=== PATIENT | female | born 1935 | race Caucasian/White ===

== ENCOUNTER → 2019-12-06 09:36 | Outpatient (CLI) | payer MEDICARE, SELFPAY ==
--- NOTE | 2019-12-06 09:40 | RAD_ITS ---
CLINICAL HISTORY: Female, 84 years old. Dysphagia, vomiting PROCEDURE: Air-contrast upper GI study FLUOROSCOPY TIME (if supplied): (1 minute 27 seconds) TECHNIQUE: (All elements of maximal sterile barrier technique followed, including US elements as applicable) Double contrast Findings: Swallowing was initiated normally. No nasopharyngeal reflux or aspiration. No Zenker''s diverticulum noted on the lateral view. There is normal peristaltic activity to the level of the aortic arch. There is significant calcification in the aortic arch which impinges upon the left side of the esophagus. The distal half of the esophagus demonstrates multiple tertiary contractions with both intraesophageal reflux and delayed emptying due to the discoordinated contractions. No evidence of a hiatal hernia, there was GE reflux with increased intrathoracic pressure. Stomach distends normally without evidence of rugal fold enlargement or mucosal ulceration. The duodenal C-loop is not elongated and demonstrates a normal mucosal pattern. A 13 mm barium pill passed through the esophagus into the stomach without difficulty RAD/Upper GI Dual Contrast IMPRESSION: Presbyesophagus with tertiary contractions in the distal half the esophagus. The tertiary contractions are causing intraesophageal reflux. There is also abnormal pooling of contrast in the distal esophagus. The tertiary contractions are not allowing normal emptying of the distal esophagus. However, there is no evidence of a stricture or mass and a 13 mm barium pill passed through the distal esophagus without difficulty. No aspiration or nasopharyngeal reflux Stomach and duodenum appeared unremarkable. Electronically Signed: Krishna Murray MD at 10:40 EDT , Service support ,
== END ==
PROVIDERS: PCP Registered Nurse; Referring Provider Nurse Practitioner Adult Health; Visit Provider Nurse Practitioner Adult Health
DX: R13.10 Dysphagia, unspecified (principal); K21.9 Gastro-esophageal reflux disease without esophagitis
CPT/HCPCS: 74246

== ENCOUNTER → 2020-10-22 20:18 | Outpatient (CLI) | payer MEDICARE, SELFPAY | PROVIDERS: PCP Registered Nurse; Referring Provider Psychiatry & Neurology Sleep Medicine; Visit Provider Psychiatry & Neurology Sleep Medicine | DX: G47.33 Obstructive sleep apnea (adult) (pediatric) (principal) | CPT/HCPCS: 95810 ==

== ENCOUNTER 2020-12-19 17:42 | Inpatient (IN) | payer MEDICARE, SELFPAY ==
[2020-11-26 07:58] VITALS: BMI 22.5
--- NOTE | 2020-12-10 09:32 | EKG12_ITS ---
Test Reason : PRE OP Blood Pressure : / mmHG Vent. Rate : 061 BPM Atrial Rate : 061 BPM P-R Int : 170 ms QRS Dur : 074 ms QT Int : 406 ms P-R-T Axes : 066 -08 081 degrees QTc Int : 408 ms Normal sinus rhythm Septal infarct , age undetermined Abnormal ECG Confirmed by SHARON JARA, WENDI ([id number]), social media editor LEN BLUM ([id number]) on 12/11/2020 8:40:28 AM Referred By: Barak Jean-Baptiste Confirmed By:WENDI HERRERA MD
[2020-12-10 10:17] LABS: Absolute Lymphocyte Count 1.43 X10^3/uL (0.83-4.51); Absolute Neutrophil Count 2.8 X10^3/uL (2.0-7.7); Basophil# 0.05 X10^3/uL; Eosinophil# 0.12 X10^3/uL; Eosinophils% 2.4 % (0-5); Hematocrit 37.3 % (37-47); Hemoglobin 12.1 g/dL (12.0-15.0); Lymphocyte # 1.43 X10^3/ul (0.83-4.51); Lymphocyte % 29.2 % (19-41); Mean Corp Hgb Conc 32.4 g/dL (32-36); Mean Corpuscular Hgb 28.3 pg (27.0-32.0); Mean Corpuscular Volume 87.1 fL (81-99); Mean Platelet Vol. 9.6 fl (6.2-12.0); Monocyte# 0.49 X10^3/uL; NRBC Flagged by Analyzer 0 % (0-5); Neutrophil # 2.79 X10^3/uL (2.7-7.7); Platelet Count 255 K/mm3 (150-450); RBC Distribution Width CV 13.2 % (11.6-14.6); RBC Distribution Width SD 41.6 fl (35.1-43.9); Red Blood Count 4.28 M/mm3 (4.2-5.4); White Blood Count 4.9 K/mm3 (4.4-11.0)
[2020-12-10 11:20] LABS: Anion Gap 9 (5-15); BUN 24 mg/dL (7-18); Calcium,Total 8.8 mg/dL (8.5-10.1); Chloride 102 mmol/L (98-107); Creatinine, Serum 1.09 mg/dL (0.55-1.02); EST Glomerular Filtration Rate 51 mL/min (>60); Est Glom Filt Rate - Afr Amer 61 mL/min (>60); Glucose 86 mg/dL (74-106); Potassium 4.1 mmol/L (3.5-5.1); Sodium Level 139 mmol/L (136-145)
[2020-12-10 11:32] LABS: Magnesium 2.1 mg/dL (1.6-2.6)
[2020-12-10 12:09] LABS: HIV - WCH Non-Reactive (Nonreactive)
[2020-12-11 05:07] LABS: HEPATITIS B SURFACE AG Negative (Negative); Hepatitis A AB, Total Negative (Negative); Hepatitis A IgM Antibody Negative (Negative); Hepatitis B Core AB IgM Negative (Negative); Hepatitis B Core Ab Total Negative (Negative); Hepatitis C Ab <0.1 s/co ratio (0.0-0.9)
[2020-12-12 14:35] VITALS: BMI 22.5
[2020-12-12 15:50] LABS: Hep B Surface Antibodies Non Reactive (.)
[2020-12-19] VITALS (17 sets, daily range): BP systolic 112–198; BP diastolic 41–87; PULSE 57–71; RESP 14–16; TEMP 35.7–36.6; O2SAT 91–100; BMI 25.4; BMI 25.2
[2020-12-19] MEDS: Acetaminophen 500 MG Tablet 1000 MG PO ×2 (06:21→21:34)
[2020-12-19] MEDS: Lactated Ringers 1,000 ML 100 ML IV ×5 (06:40→23:21)
[2020-12-19 07:05] LABS: Bedside Glucose 167 mg/dL (70-110)
[2020-12-19] MEDS: Cefazolin 2 GM in 0.9% Normal Saline 100 ML IV (07:50)
--- NOTE | 2020-12-19 08:29 | RAD_ITS ---
STUDY: X-RAY - LUMBAR SPINE REASON FOR EXAM: Female, 85 years old. LUMBAR DECOMPRESSION L2-3,L4-5 TECHNIQUE: 1 view(s) of the lumbar spine were obtained. COMPARISON: None FINDINGS: Single lateral intraoperative image was submitted. The localization instrument is seen along the posterior aspect of the L4-L5 disc space level. RAD/Spine 1 View Any Level IMPRESSION: The localization instrument is seen along the posterior aspect of the L4-L5 disc space level. Electronically Signed: Gwyn Arboleda MD at 10:29 EDT , Service support ,
[2020-12-19] MEDS: THROMBIN (RECOMBINANT) 20,000 UNIT VIAL 20000 UNIT TOPICAL (09:25)
--- NOTE | 2020-12-19 11:35 | HP.PCM_ITS ---
History and Physical Date of Admission: 12/19/20 12/12/20 14:35 BMI 22.5 Intake Visit Reasons: lumbar spine Is patient in pain?: Yes Pain scale (1-10): 6 Allergies gabapentin Allergy (Verified 12/05/20 13:57) Rash irbesartan Allergy (Verified 12/05/20 13:57) Other lisinopril Allergy (Verified 12/05/20 13:57) Other nifedipine [From Procardia] Allergy (Verified 12/05/20 13:57) Other pravastatin Allergy (Verified 12/05/20 13:57) Other tizanidine [Tizanidine] Allergy (Verified 12/05/20 13:57) Other levofloxacin Adverse Reaction (Verified 12/05/20 13:57) Pain in joints ON LICENSE OF [facility] Medical History (Updated 12/05/20 @ 14:16 by Drea Lowe) Ambulates with cane Anxiety Anxiety and depression Arthritis Back pain Cancer Cardiology follow-up encounter Chronic cough CKD (chronic kidney disease) CPAP (continuous positive airway pressure) dependence Depression Former smoker Gastric reflux History of edema History of epidural anesthesia History of fracture of left ankle History of irregular heartbeat History of pain when walking History of stress test (~2019) Hx of carpal tunnel syndrome Hx of heart valve insufficiency Hx of melanoma of skin Hx of rheumatic fever Hx of skin malignancy Hx: recurrent pneumonia Hypertension Injury of back Leg cramps Low iron Lung nodule Normal echocardiogram (~2019) Rheumatoid arthritis Shortness of breath on exertion Sleep apnea Thyroid disease Wears dentures Wears glasses Wears hearing aid Surgical History (Updated 12/05/20 @ 14:16 by Drea Lowe) History of adenoidectomy History of cardiac catheterization (~2019) History of carpal tunnel release History of toe surgery Hx of hand surgery Hx of tonsillectomy Hx of tubal ligation Social History Smoking Status: Former smoker HPI lumbar spine Details: Parts of this documentation were recorded by a scribe, this documentation accurately reflects the service provided and the decisions made by me, Dr. Barak Jean-Baptiste, 12/12/20 1014. NAHED PINEDA is a 85 year old F here today for her pre-op appointment prior to Lumbar Decompression L2-3 ,L4-5. DOS: 12/720. Nahed is here for her preop visit in the company of her son and her daughter. We discussed the surgery at length that would be done what to expect postop when it she could go home etc. We also spoke of possible risks and complications associated with the surgery including the possibility of , paralysis infection meningitis failed to relieve the symptoms blood clot in the legs blood clot in the lungs myocardial infarction stroke among others. I answered all her questions and those of her children. I went over her MRI scan again. We will decompress her at L4-5 and at L2-3 with possible discectomy at 2 3 and if so it might be a bilateral lateral discectomy. I will see him which decompression I get without violating the disc. I will see her again at surgery next Thursday. Coding Level of Care Code Off vis,est,level 2 Diagnoses Spinal stenosis of lumbar region at multiple levels M48.061 Time Spent (min) 25 Assessment and Plan Assessment and Plan (1) Spinal stenosis of lumbar region at multiple levels:
--- NOTE | 2020-12-19 11:47 | OP.PCM_ITS ---
Report of Operation Date of Procedure: 12/19/20 Description of Surgical Findings:: Preoperative diagnosis: Spinal stenosis L4-5 and L2-3 Postoperative diagnoses: The same Procedure: #1 complete decompression L4-5 #2 complete decompression L2-3 Surgeon: Dr. Jean-Baptiste speech and language assistant: Gadiel GLASGOW Anesthesia: General endotracheal anesthesia administered by [facility] Estimated blood loss: Less than 50 cc Drains: Medium Hemovac Complications: None Procedure: Patient was taken to the OR she was placed under general endotracheal anesthesia. A Richard catheter was then inserted and neuro monitoring placed all their leads on the patient. The patient was then placed in the prone position on the Cal frame. After appropriate positioning with care to protect her bony prominences her breasts her facial features her brachial plexus her ulnar nerves of both elbows the back was then prepped and draped standard fashion. We then made a longitudinal incision centered over L4 5 subcutaneous tissues were incised length of the skin incision. I then opened the lumbar fascia to the left of the spinous processes using cautery and elevated the paravertebral muscles off the lamina of 4 and the top of the lamina of L5. Intraoperative x- ray was taken with a marker in place they confirm that we were indeed at the right level. I went ahead and extended my incision over the spinous process of 3 than the spinous process of 2. I then elevated the rest of the paravertebral muscles off the lamina of 3 and the lamina of 2. We then opened the opposite side opening the lumbar fascia to the right of the spinous processes and elevated the paravertebral muscles off the top of the lamina 5 and the lamina for the lamina of 3 and the lamina of 2. Thorough irrigation was carried out every 10 or 15 minutes. The super slide retractor was then put in place. This gave us good access. Double-action rongeurs were then used to remove the spinous process first of L4. I then elevated the ligamentum flavum off the underside of the lamina of L4 on both sides and performed a beginning of the laminectomy with 45 degree Kerrison rongeurs once this was done I then split the ligamentum flavum in the middle and began the removal of the ligamentum flavum to the other side with a 45 degree Kerrison rongeurs this was done on both the left and the right side. At that I was able to complete the right side from the left side of the patient and the remaining left-sided decompression had to wait until I was on the other side of the table. In the meantime I removed the spinous process of L2 with double-action rongeurs again I removed Nita ligamentum flavum off the underside of the lamina of L to and performed a laminectomy with 45 degree Kerrison rongeurs the ligamentum flavum again was removed in retrograde fashion with a 45 degree Kerrison rongeurs completely decompressing the right side from the left side of the patient. My light and cooling vest were then moved to the opposite side of the patient and I finished the decompression on the left side at 4 5 and 2 3 from the right side. This completely decompressed the spinal stenosis on this patient. Thorough irrigation was carried out again 1 last time amnionic membranes were then placed over both laminectomy sites and Gelfoam was placed over the top of those a medium Hemovac drain was inserted and closure was begun. Closed the lumbar fascia using [id number] suture with #1 Vicryl for closure of subcutaneous tissues in interrupted fashion with 0 Vicryl and 2-0 Vicryl in interrupted fashion and the skin was approximated using skin clips. Sterile dressings were then applied. The patient was then recovered in the OR then moved to her hospital bed and taken to recovery in satisfactory condition. This is the end of operative summary on Nahed Kim. This is Dr. Jean-Baptiste dictating.
[2020-12-19] MEDS: traMADol 50 MG Tablet PO (17:53)
--- NOTE | 2020-12-19 18:10 | NURSING ---
cefazolin scheduled @ 1741 is not on unit for pt administration
[2020-12-19] MEDS: oxyCODONE 5 MG Tablet PO (18:37)
[2020-12-19] MEDS: Cefazolin 1 GM/50 ML BAG IV (18:46)
--- NOTE | 2020-12-19 18:49 | PCM.PN.HOSP ---
Documented by User: Jerilyn Gómze, SUPERVISOR DATA PROCESSING-C 12/19/20 18:59 Subjective Subjective Patient is an 85-year-old female who presented for lumbar decompression of L2-L3 and L4-L5 with Dr. Jean-Baptiste. Patient is currently lying in bed complaining of 6 out of 10 pain for which she just received oxycodone. Patient states she has no other complaints at this time. At the request of Dr. Jean-Baptiste we are seeing patient for medical management of chronic diseases included hypothyroid, hypertension and depression. Objective Data Objective Data Vital Signs: Vital Signs Temp Pulse Resp BP Pulse Ox 97.9 F 71 16 124/50 H 95 12/19/20 17:50 12/19/20 17:50 12/19/20 17:50 12/19/20 17:50 12/19/20 17:50 Oxygen Flow Rate (L/min) 2 Oxygen Delivery Method Room Air Weight: 148 lb 2.41 oz Body Mass Index (BMI) 25.2 Intake & Output: Intake and Output for Last 24 Hours 12/17/20 12/18/20 12/19/20 23:59 23:59 23:59 Intake Total 2464 / 2464 Output Total 875 / 875 Balance 1589 / 1589 Lab / Micro Data Result Diagrams: 12/10/20 09:49 12/10/20 09:49 Labs: Laboratory Results - last 24 hr 12/19/20 06:01 POC Glucose 167 H Micro: Microbiology 12/10/20 09:49 Swab (Method) Nasal Screen MRSA/MSSA - Final Radiography Diagnostic Testing: Radiology Impression Spine X-Ray 12/19/20 08:29 IMPRESSION: The localization instrument is seen along the posterior aspect of the L4-L5 disc space level. Electronically Signed: Gwyn Arboleda MD at 10:29 EDT , Service support , Physical Exam Const alert, oriented x3 and no apparent distress General Appearance: cooperative HEENT normocephalic and head/scalp atraumatic Neck full ROM, supple and no JVD General: trachea midline Chest inspection of chest normal Resp normal respiratory effort, normal air movement and clear to auscultation bilaterally Cardio regular rate, regular rhythm, S1 normal heart sound, S2 normal heart sound and peripheral pulses 2+ throughout GI normal to inspection, nondistended, normoactive bowel sounds, soft to palpation and non-tender Extremity normal to inspection, full ROM and normal capillary refill Skin no rashes or lesions noted, no wounds and skin turgor normal Neuro oriented x3, moves all extremities, no focal motor deficits, no sensory deficits noted and gait normal Psych mental status grossly normal, thought process normal, cooperative, affect normal and speech normal Assessment & Plan Assessment/Plan (1) Spinal stenosis of lumbar region at multiple levels: PLAN: 1. Lumbar decompression of L2-3 and L4-L5 -Surgery completed 12/19/2020 -Pain management as ordered by Dr. Jean-Baptiste 2. Hypertension -Vital signs per protocol, trend BP -Continue losartan 50 mg p.o. daily 3. Hypothyroidism -Continue levothyroxine 50 mcg p.o. daily 4. Anxiety and depression -Continue duloxetine 30 mg daily DVT prophylaxis-SCDs This patient was seen by Jerilyn Gómez NP-Wilder under the supervision of Dr. Cox. Documented by User: Dr. Tiago Cox DO 12/20/20 07:05 Subjective Subjective Patient seen and examined on December 19, 2020 Objective Data Lab / Micro Data Attestation: I reviewed the patient's lab results. Result Diagrams: 12/10/20 09:49 12/10/20 09:49 Physical Exam Const alert and no apparent distress HEENT normocephalic Head and Scalp: normal to inspection and atraumatic Eyes PERRL Cardio regular rate, regular rhythm, S1 normal heart sound and S2 normal heart sound GI normal to inspection, nondistended, normoactive bowel sounds, soft to palpation, non-tender and non-distended Extremity normal to inspection and no pedal edema Assessment & Plan Assessment/Plan (1) Spinal stenosis of lumbar region at multiple levels: PLAN: Patient seen and examined independently. Data reviewed. I agree with the above note by the nurse practitioner. 1. Status post lumbar decompression L2-3 and L4-5. Management per spine surgery 2. Hypertension Stable Continue losartan 3. Hypothyroidism Stable Continue levothyroxine Thank you the consult the hospitalist group will follow along during this patient's hospitalization. Charges/Coding Visit Charges Inpatient E&M: 16516 Subs Hosp L2 (Billing for December 19, 2020)
[2020-12-19] MEDS: Famotidine 20 MG Tablet PO (20:33)
[2020-12-19] MEDS: Senna/Docusate Sodium 1 Tablet 2 TABLET PO (21:34)
[2020-12-19] MEDS: Losartan Potassium 50 MG Tablet PO (21:34)
[2020-12-20] VITALS (8 sets, daily range): BP systolic 132–147; BP diastolic 46–77; PULSE 67–79; RESP 16–18; TEMP 36.5–37.2; O2SAT 96–100
[2020-12-20] MEDS: traMADol 50 MG Tablet PO (00:42)
[2020-12-20] MEDS: Cefazolin 1 GM/50 ML BAG IV (03:10)
[2020-12-20] MEDS: 0.9% Saline Lock 10 ML Syringe IV (04:52)
[2020-12-20] MEDS: Acetaminophen 500 MG Tablet 1000 MG PO ×3 (05:01→21:03)
[2020-12-20] MEDS: Levothyroxine 50 MCG Tablet PO (05:01)
--- NOTE | 2020-12-20 05:35 | NURSING ---
Pt assisted to sitting at edge of bed at this time with BIOMEDICAL ANALYTICAL SCIENTIST Julia. Pt tolerated well, although painful. Pt medicated for 6/10 pain to back after assisted to lying position in bed.
[2020-12-20] MEDS: oxyCODONE 5 MG Tablet PO (05:41)
[2020-12-20] MEDS: Vitamin B Comp W-C Capsule 1 CAP PO (07:30)
[2020-12-20] MEDS: Senna/Docusate Sodium 1 Tablet 2 TABLET PO ×2 (07:30→21:05)
[2020-12-20] MEDS: Famotidine 20 MG Tablet PO ×2 (07:30→21:03)
[2020-12-20] MEDS: Cholecalciferol (VIT D3) 25 MCG TABLET (1,000 UNITS) 50 MCG PO (07:30)
[2020-12-20] MEDS: DULoxetine Hcl 30 MG Capsule PO (07:36)
--- NOTE | 2020-12-20 10:54 | NURSING ---
Blood glucose is 88. pt reports feeling very weak, Armand Sorto RN did an NIH.
[2020-12-20 11:00] LABS: Bedside Glucose 88 mg/dL (70-110)
--- NOTE | 2020-12-20 12:00 | CASEMGMT ---
SUKI MONK Assessment: Face to Face with pt for initial transition planning/care coordination assessment. SUKI MONK introduced self and role at [facility], pt voices understanding and consents to assessment. Pt is A/O x4 and answers all questions appropriately at this time. Pt states she is a little slow as she just had medication. Pt son at bedside. Care providers, pharmacy, and demographics verified/updated. Admitting Dx: Lumbar decompression L2-3, L3-4 PCP:Sandy Giraldo [employer] at [facility] Specialists: Estiven, spine surgeon; Paulette, cardio; Brandon, back specialist; Dev, pain mgmt Preferred Pharmacy: [facility] Insurance: [employer] [facility] Prescription Benefit: yes LW/HPOA: Pt has LW/DPOA on file at [facility]. Her DPOA is her dtr Steffany Ace as her has passed. LNOK: Steffany Ace, dtr; Jessee Kim, son Living Arrangements: Pt lives alone in a single story house with 2 steps to enter without rail. Pt states she is I in ADL's and denies concerns at home. Transportation: Pt reports she can drive herself or her family can transport her. She denies issues with transportation. DME/HHC/SNF: Pt has a cane, rollator and a FWW. Pt denies any history of HHC or SNF stays. Pt states no concerns with going home at time of dc. She states she doesn't feel ready today though. Pt son states he hopes she can return home. Pt states no further concerns/needs. CM to follow. Advised pt to ask CM if any further question/concerns/needs arise, voices understanding. Pt Goal: Home Plan: Home
--- NOTE | 2020-12-20 13:28 | PN.HOSP_ITS ---
Subjective Subjective [place] like a rag doll after taking oxycode and cymbalta today. Has been taper off cymbalta prior to admission. [place] fine beforehand. Objective Data Objective Data Vital Signs: Vital Signs Temp Pulse Resp BP Pulse Ox 37.2 C 75 16 147/64 H 99 12/20/20 12:39 12/20/20 12:39 12/20/20 12:39 12/20/20 12:39 12/20/20 12:39 Oxygen Flow Rate (L/min) 2 Oxygen Delivery Method Room Air Weight: 67.2 kg Body Mass Index (BMI) 25.2 Intake & Output: Intake and Output for Last 24 Hours 12/18/20 12/19/20 12/20/20 23:59 23:59 23:59 Intake Total 3637.34 / 3987.34 1726.67 / 1726.67 Output Total 875 / 1295 2170 / 2170 Balance 2762.34 / 2692.34 -443.33 / -443.33 Lab / Micro Data Result Diagrams: 12/10/20 09:49 12/10/20 09:49 Labs: Laboratory Results - last 24 hr 12/20/20 10:54 POC Glucose 88 Micro: Microbiology 12/10/20 09:49 Swab (Method) Nasal Screen MRSA/MSSA - Final Physical Exam Const alert Neck no lymphadenopathy Resp normal respiratory effort, no retractions, no use of accessory muscles and clear to auscultation bilaterally Cardio regular rate, regular rhythm, S1 normal heart sound and S2 normal heart sound GI normal to inspection, nondistended, normoactive bowel sounds, soft to palpation, non-tender and non-distended Extremity normal to inspection Assessment & Plan Assessment/Plan (1) Spinal stenosis of lumbar region at multiple levels: PLAN: 1. General malaise I feel that this was likely from taking the oxycodone this AM. Opiate naive. Advised to use narcotic sparinlgy I don't expect any infectious etiology, but she will be monitor here. If any issues arise, then can reassess. 2. Spinal stensos s/p decompression mgmt per Spine DW patient's son at bedside Charges/Coding Visit Charges Inpatient E&M: 04034 Subs Hosp L2
--- NOTE | 2020-12-20 14:26 | PCM.PN.ORT ---
Objective Data Objective Data Vital Signs: Vital Signs Temp Pulse Resp BP Pulse Ox 98.9 F 75 16 147/64 H 99 12/20/20 12:39 12/20/20 12:39 12/20/20 12:39 12/20/20 12:39 12/20/20 12:39 Oxygen Flow Rate (L/min) 2 Oxygen Delivery Method Room Air Weight: 148 lb 2.41 oz Body Mass Index (BMI) 25.2 Intake & Output: Intake and Output for Last 24 Hours 12/18/20 12/19/20 12/20/20 23:59 23:59 23:59 Intake Total 3637.34 / 3987.34 1726.67 / 1726.67 Output Total 875 / 1295 2170 / 2170 Balance 2762.34 / 2692.34 -443.33 / -443.33 Lab / Micro Data Result Diagrams: 12/10/20 09:49 12/10/20 09:49 Labs: Laboratory Results - last 24 hr 12/20/20 10:54 POC Glucose 88 Micro: Microbiology 12/10/20 09:49 Swab (Method) Nasal Screen MRSA/MSSA - Final Procedure Criteria Elective Risks - COVID COVID Risk Discussion: Postop day #1. She did get up and walk into the [place] today with help. Patient is only complaining of low back pain. Her leg pain is completely gone. At this time she is alert and well oriented. Her dressing is dry. He had 60 cc out in the last 8 or 9 hours so working to keep the drain in 1 more day. Neurocirculation is totally intact in both lower extremities. Progress is satisfactory. Anticipate at least until tomorrow and may be the next day before she can go home. She will have help at home with her family.
--- NOTE | 2020-12-20 15:03 | CHAPLAIN ---
Type of Pastoral Visit _x__ Initial Visit ___ Follow-up Visit ___ On-call Visit ___ General Patient Visit ___ Spiritual Assessment ___ Family Conference ___ Bereavement ___ Rapid Response ___ Code Blue ___ Other (describe below) Pastoral Care Referral From _x__ Patient ___ Family ___ Nurse ___ Physician ___ User Experience Manager ___ Online Facilitator ___ Other (describe below) Sacrament/Intervention _x__ Active listening ___ Anointing ___ Taoism ___ Bereavement ___ Communion ___ Soledad exploration ___ ___ Life review _x__ Prayer ___ Reconciliation ___ Sacrament of Sick _x__ Supportive presence ___ Wedding ___ Other (describe below) Pastoral Comments
--- NOTE | 2020-12-20 15:29 | CASEMGMT ---
Social Work Note Per coal weigher questions pt has completed HCPOA and LW and provided documents to [facility]. SW reviewed chart. Both HCPOA and LW are on file at [facility]. HCPOA states pt's is POA but pt's has since passed. Pt's daughter Elizabeth Kim is listed as first alternative agent. HCPOA and LW placed on pt's chart. Barbara Diehl WAD PRINTING MACHINE OPERATOR, FURNITURE INSTALLER
--- NOTE | 2020-12-20 17:07 | NURSING ---
pt daughter asked nursing to walk pt, told pt daughter that as soon as nursing has time, we will be into help her. pt daughter went back to room and proceeded to ambulate pt in halls without staff helping. staff told pt and daughter that she is not to walk with out staff helping her, she is unsteady on feet, and has many tubes that could be a fall hazard. also told her that her surgery could be damaged if she was to fall. pt stated she knew it was wrong but she did not want to wait for help. bed alarm placed on bed.
--- NOTE | 2020-12-20 17:30 | NURSING ---
pt called nursing to room. pt c/o not being able to swallow. pt eating supper and ate chicken breast. pt stated she took too large of bite, and it is stuck in throat. pt and daughter stated this happens all the time at home. pt stated that she has a hiatal hernia and has had it looked at by a dr and there is nothing that can be done with it, that she has to take small bites at home. offered pt something for nausea. pt declined. pt does not appear to be in any distress. pt not coughing. will continue to monitor. told pt that she should order things that she is able to swallow easier.
[2020-12-20] MEDS: Losartan Potassium 50 MG Tablet PO (21:03)
[2020-12-21 02:00] VITALS: BP 131/72; PULSE 79; RESP 16; TEMP 37.2; O2SAT 95
[2020-12-21] MEDS: Acetaminophen 500 MG Tablet 1000 MG PO ×3 (05:47→21:21)
[2020-12-21] MEDS: Levothyroxine 50 MCG Tablet PO (05:47)
[2020-12-21 07:28] VITALS: BP 128/50; PULSE 73; RESP 16; TEMP 36.9; O2SAT 94
[2020-12-21] MEDS: Vitamin B Comp W-C Capsule 1 CAP PO (07:42)
[2020-12-21] MEDS: Famotidine 20 MG Tablet PO ×2 (09:52→21:20)
[2020-12-21] MEDS: Cholecalciferol (VIT D3) 25 MCG TABLET (1,000 UNITS) 50 MCG PO (09:52)
[2020-12-21] MEDS: Senna/Docusate Sodium 1 Tablet 2 TABLET PO ×2 (09:53→21:22)
--- NOTE | 2020-12-21 10:52 | PN.HOSP_ITS ---
Subjective Subjective Feels better overall. Objective Data Objective Data Vital Signs: Vital Signs Temp Pulse Resp BP Pulse Ox 36.9 C 73 16 128/50 H 94 12/21/20 07:28 12/21/20 07:28 12/21/20 07:28 12/21/20 07:28 12/21/20 07:28 Oxygen Flow Rate (L/min) 2 Oxygen Delivery Method Room Air Weight: 67.2 kg Body Mass Index (BMI) 25.2 Intake & Output: Intake and Output for Last 24 Hours 12/19/20 12/20/20 12/21/20 23:59 23:59 23:59 Intake Total 3637.34 / 3987.34 2126.67 / 2126.67 Output Total 875 / 1295 2700 / 3620 1860 / 1860 Balance 2762.34 / 2692.34 -573.33 / -1493.33 -1860 / -1860 Lab / Micro Data Result Diagrams: 12/10/20 09:49 12/10/20 09:49 Labs: Laboratory Results - last 24 hr 12/20/20 10:54 POC Glucose 88 Micro: Microbiology 12/10/20 09:49 Swab (Method) Nasal Screen MRSA/MSSA - Final Physical Exam Const alert HEENT Head and Scalp: normocephalic Resp normal respiratory effort, no retractions, no use of accessory muscles and clear to auscultation bilaterally Cardio regular rate, regular rhythm, S1 normal heart sound and S2 normal heart sound GI normal to inspection, nondistended, normoactive bowel sounds, non-tender and non-distended Assessment & Plan Assessment/Plan (1) Spinal stenosis of lumbar region at multiple levels: PLAN: 1. General malaise Resolved I feel that this was likely from taking the oxycodone this AM. Opiate naive. Advised to use narcotic sparinlgy I don't expect any infectious etiology, but she will be monitor here. If any iss ues arise, then can reassess. 2. Spinal stensos s/p decompression mgmt per Spine Charges/Coding Visit Charges Inpatient E&M: 36861 Subs Hosp L2
--- NOTE | 2020-12-21 13:08 | PCM.PN.ORT ---
Objective Data Objective Data Vital Signs: Vital Signs Temp Pulse Resp BP Pulse Ox 98.4 F 73 16 128/50 H 94 12/21/20 07:28 12/21/20 07:28 12/21/20 07:28 12/21/20 07:28 12/21/20 07:28 Oxygen Flow Rate (L/min) 2 Oxygen Delivery Method Room Air Weight: 148 lb 2.41 oz Body Mass Index (BMI) 25.2 Intake & Output: Intake and Output for Last 24 Hours 12/19/20 12/20/20 12/21/20 23:59 23:59 23:59 Intake Total 3637.34 / 3987.34 2126.67 / 2126.67 Output Total 875 / 1295 2700 / 3620 1860 / 1860 Balance 2762.34 / 2692.34 -573.33 / -1493.33 -1860 / -1860 Lab / Micro Data Result Diagrams: 12/10/20 09:49 12/10/20 09:49 Micro: Microbiology 12/10/20 09:49 Swab (Method) Nasal Screen MRSA/MSSA - Final Procedure Criteria Elective Risks - COVID COVID Risk Discussion: On postop day #2. Patient has no complaints she is doing much better than she was even yesterday. He has actually ambulated more today with her walker and her leg pain is completely gone and she is very pleased about that. I change the dressing today and removed her drain. Had a few cc since 6 this morning. We will keep her 1 more night and hopefully tomorrow morning I will be able to release her for home.
[2020-12-21 13:51] VITALS: O2SAT 98
[2020-12-21 14:01] VITALS: BP 109/53; PULSE 81; RESP 16; TEMP 36.8; O2SAT 98
--- NOTE | 2020-12-21 15:37 | CASEMGMT ---
Addendum entered by Leanna Diaz 12/21/20 16:36: SUKI MONK back into pt room per son request. Reviewed HHC and private duty lists with him and how to get HHC once dc'd from the hospital. Reviewed services each provided. Pt/son denies further questions and was appreciative of the information. Original Note: SUKI MONK in to pt room to provide a list of HHC providers including quality and resource use data and consistent with the patient?s preferred geographic region, medical needs, and insurance network per request of pt son. Pt son is not in room at this time. Also provided pt with list of private duty agencies. Pt states her family will be staying with her for a short time. The information is in case she needs further care once they leave. Pt ready to get up and work with therapy. Pt denies further needs.
[2020-12-21 19:52] VITALS: BP 117/50; PULSE 81; RESP 16; TEMP 37.5; O2SAT 97
[2020-12-21] MEDS: Losartan Potassium 50 MG Tablet PO (21:20)
[2020-12-22 01:57] VITALS: BP 146/67; PULSE 76; RESP 16; TEMP 37.1; O2SAT 94
[2020-12-22] MEDS: Levothyroxine 50 MCG Tablet PO (05:26)
[2020-12-22] MEDS: Acetaminophen 500 MG Tablet 1000 MG PO ×2 (05:26→14:41)
[2020-12-22 07:18] VITALS: O2SAT 94
[2020-12-22] MEDS: Cholecalciferol (VIT D3) 25 MCG TABLET (1,000 UNITS) 50 MCG PO (09:03)
[2020-12-22] MEDS: DULoxetine Hcl 30 MG Capsule PO (09:04)
[2020-12-22] MEDS: Senna/Docusate Sodium 1 Tablet 2 TABLET PO (09:04)
[2020-12-22] MEDS: Famotidine 20 MG Tablet PO (09:05)
[2020-12-22] MEDS: Vitamin B Comp W-C Capsule 1 CAP PO (09:06)
[2020-12-22 09:09] VITALS: BP 117/52; PULSE 79; RESP 16; TEMP 36.7; O2SAT 97
--- NOTE | 2020-12-22 10:13 | PN.HOSP_ITS ---
Subjective Subjective Feeling well. Ready to go home. Objective Data Objective Data Vital Signs: Vital Signs Temp Pulse Resp BP Pulse Ox 36.7 C 79 16 117/52 L 97 12/22/20 09:09 12/22/20 09:09 12/22/20 09:09 12/22/20 09:09 12/22/20 09:09 Oxygen Flow Rate (L/min) 2 Oxygen Delivery Method Room Air Weight: 67.2 kg Body Mass Index (BMI) 25.2 Intake & Output: Intake and Output for Last 24 Hours 12/20/20 12/21/20 12/22/20 23:59 23:59 23:59 Intake Total 2126.67 / 2126.67 Output Total 2700 / 3620 1860 / 1860 Balance -573.33 / -1493.33 -1860 / -1860 Lab / Micro Data Result Diagrams: 12/10/20 09:49 12/10/20 09:49 Micro: Microbiology 12/10/20 09:49 Swab (Method) Nasal Screen MRSA/MSSA - Final Physical Exam Const alert Constitutional Narrative: up in chair eating breakfast. HEENT Head and Scalp: normocephalic Psych affect normal Assessment & Plan Assessment/Plan (1) Spinal stenosis of lumbar region at multiple levels: PLAN: 1. General malaise Resolved I feel that this was likely from taking the oxycodone this AM. Opiate naive. Advised to use narcotic sparinlgy I don't expect any infectious etiology, but she will be monitor here. If any i ssues arise, then can reassess. 2. Spinal stensosis s/p decompression mgmt per Spine Medically stable for discharge. Charges/Coding Visit Charges Inpatient E&M: 56289 Subs Hosp L1
--- NOTE | 2020-12-22 12:57 | VDLE_ITS ---
Reason For Study: Pain RIGHT LEFT GSV is normal. GSV is normal. CFV is compressible, spontaneous, phasic, CFV is compressible, spontaneous, phasic, competent and demonstrates normal competent, and demonstrates normal augmentation. augmentation. FV is compressible, spontaneous, phasic, FV is compressible, spontaneous, phasic, competent and demonstrates normal competent and demonstrates normal augmentation. augmentation. POP V is compressible, spontaneous, phasic, POP V is compressible, spontaneous, phasic, competent and demonstrates normal competent and demonstrates normal augmentation. augmentation. T/P Trunk is compressible. T/P Trunk is compressible. PTV is compressible. PTV is compressible. RT PerV is compressible. LT PerV is compressible. Nonvascularized structure is noted in the rightpopliteal space measuring approximently 1.25 x 3.54 x 3.67cm. Procedure This is a venous duplex using B-mode, color flow and spectral Doppler. Exam performed portable in patient room. A preliminary report was called and/or faxed to [facility]. VL/Venous Duplex US - Thom Extrem Interpretation Summary No evidence for acute deep venous thrombosis bilateral lower extremities with p atent and compressible bilateral great saphenous veins. Nonvascular right popliteal space 1.25 x 3.54 x 3.67 cm. Ordering Physician: Barak Jean-Baptiste Referring Physician: Sandy Giraldo Performed By: Barbara Castillo RVT
--- NOTE | 2020-12-22 13:37 | PCM.DC ---
Discharge Instructions Diet Discharge Diet: No restrictions Activity Discharge Activity: Use Walker May shower in (days): 3 Weight Bearing Status: Full weight bearing Dressing / Incision Call your doctor if your incision/area has: Foul Smelling Discharge Call your doctor if you observe: Fever of 101 or Higher, Shortness of breath, Fainting spells, Chest pain and Uncontrolled pain Remove Dressing in: 3 days Cleanse incision/area with: Soap & Water Follow Up Care Test Results: Test results from this visit will be discussed in further detail at your follow-up appointment, if applicable. Discharge Plan Admission Admit Date/Time: 12/19/20 17:42 Attending Provider: Tiago Cox Primary Care Provider: Sandy Giraldo NP Consulting Providers: Tiago Godinez ; Tiago Cox Discharge Orders/Prescriptions Prescriptions: No Action duloxetine 60 mg capsule,delayed release(DR/EC) 30 mg PO DAILY RF: 0 lansoprazole [Prevacid] 15 MG capsule 15 mg PO BID PRN (Reason: Indigestion) RF: 0 vitamin B complex 1 EACH capsule 1 ea PO DAILY RF: 0 Fish Oil 1 EACH capsule 2 ea PO DAILY RF: 0 cholecalciferol (vitamin D3) [Vitamin D3] 2,000 UNIT tablet 2,000 unit PO DAILY RF: 0 levothyroxine 50 MCG tablet 50 mcg PO DAILY RF: 0 losartan 50 mg Tablet 50 mg PO DAILY RF: 0 Referrals / Follow Up: Sandy Giraldo NP, SCHOOL ADMISSIONS REPRESENTATIVE-C [Primary Care Provider] -
--- NOTE | 2020-12-22 13:41 | PCM.DC.SUM ---
Providers Date of Admission: 12/19/20 Primary Care Physician: This patient was admitted on December 19 and is being discharged on December 22. Admitting diagnosis was spinal stenosis L2-3 and L4-5. Date of admission she underwent surgery for decompression of L2-3 and L4-5. She tolerated the procedure well. At discharge the patient dressing is dry. We change the dressing yesterday the incision was healing well. He has instructions to use her walker at first when she is at home. She is to remove her dressing in 3 days and may shower the day after that. She already has an appointment at my office that is already scheduled. Consultations 12/19/20 17:42 Consult: Hospitalist Routine Consulting Provider: Tiago Cox Reason for Consult: Medical Management EMERGENT Consult: No MD Notified: Yes Date Notified: 12/19/20 Time Notified: 18:38 Method of Notification: via text Method of Consult:: In-Person Reason For Visit: LUMBAR DECOMPRESION L2-3, L3-4 Diagnosis Discharge Diagnosis (1) Spinal stenosis of lumbar region at multiple levels: Status: Acute Code(s): M48.061 - Spinal stenosis, lumbar region without neurogenic claudication Medications at Discharge Home Medications Fish Oil 2 ea PO DAILY 12/09/13 cholecalciferol (vitamin D3) [Vitamin D3] 2,000 unit PO DAILY 12/09/13 lansoprazole [Prevacid] 15 mg PO BID PRN 12/09/13 vitamin B complex 1 ea PO DAILY 12/09/13 levothyroxine 50 mcg PO DAILY 02/24/17 duloxetine 60 mg capsule,delayed release 30 mg PO DAILY cap 11/19/20 losartan 50 mg PO DAILY 12/05/20 Weight / BMI Weight Weight: 148 lb 2.41 oz Body Mass Index (BMI) 25.2 ABG / Lab / Microbiology Data Result Diagrams: 12/10/20 09:49 12/10/20 09:49 Microbiology: Microbiology 12/10/20 09:49 Swab (Method) Nasal Screen MRSA/MSSA - Final D/C Instructions Discharge Diet: No restrictions May shower in (days): 3 Weight Bearing Status: Full weight bearing Call your doctor if your incision/area has: Foul Smelling Discharge Call your doctor if you observe: Fever of 101 or Higher, Shortness of breath, Fainting spells, Chest pain and Uncontrolled pain Cleanse incision/area with: Soap & Water Meaningful Use Info Meaningful Use Diagnoses (Choose all that apply): None applicable Discharge Plan Admission Admit Date/Time: 12/19/20 17:42 Attending Provider: Tiago Cox Primary Care Provider: Sandy Giraldo NP Consulting Providers: Tiago Godinez ; Tiago Cox Discharge Orders/Prescriptions Prescriptions: No Action duloxetine 60 mg capsule,delayed release(DR/EC) 30 mg PO DAILY RF: 0 lansoprazole [Prevacid] 15 MG capsule 15 mg PO BID PRN (Reason: Indigestion) RF: 0 vitamin B complex 1 EACH capsule 1 ea PO DAILY RF: 0 Fish Oil 1 EACH capsule 2 ea PO DAILY RF: 0 cholecalciferol (vitamin D3) [Vitamin D3] 2,000 UNIT tablet 2,000 unit PO DAILY RF: 0 levothyroxine 50 MCG tablet 50 mcg PO DAILY RF: 0 losartan 50 mg Tablet 50 mg PO DAILY RF: 0 Referrals / Follow Up: Sandy Giraldo PROPERTY SPECIALIST, PROPERTY SPECIALIST-C [Primary Care Provider] -
--- NOTE | 2020-12-22 13:57 | DCINST_ITS ---
Discharge Instructions Diet Discharge Diet: No restrictions Activity May shower in (days): 3 Weight Bearing Status: Full weight bearing Dressing / Incision Call your doctor if your incision/area has: Foul Smelling Discharge Call your doctor if you observe: Fever of 101 or Higher, Shortness of breath, Fainting spells, Chest pain and Uncontrolled pain Cleanse incision/area with: Soap & Water Follow Up Care Test Results: Test results from this visit will be discussed in further detail at your follow-up appointment, if applicable. Discharge Plan Admission Admit Date/Time: 12/19/20 17:42 Attending Provider: Tiago Cox Primary Care Provider: Sandy Giraldo NP Consulting Providers: Tiago Godinez ; Tiago Cox Discharge Orders/Prescriptions Prescriptions: No Action duloxetine 60 mg capsule,delayed release(DR/EC) 30 mg PO DAILY RF: 0 lansoprazole [Prevacid] 15 MG capsule 15 mg PO BID PRN (Reason: Indigestion) RF: 0 vitamin B complex 1 EACH capsule 1 ea PO DAILY RF: 0 Fish Oil 1 EACH capsule 2 ea PO DAILY RF: 0 cholecalciferol (vitamin D3) [Vitamin D3] 2,000 UNIT tablet 2,000 unit PO DAILY RF: 0 levothyroxine 50 MCG tablet 50 mcg PO DAILY RF: 0 losartan 50 mg Tablet 50 mg PO DAILY RF: 0 Referrals / Follow Up: Sandy Giraldo NP, [employer] P[employer] PLANT ASSEMBLER-C [Primary Care Provider] - Disposition Disposition (needs filled in before D/C Order can be placed): Home, Self Care
[2020-12-22 14:42] VITALS: BP 164/74; PULSE 71; RESP 18; TEMP 36.9; O2SAT 99
== END 2020-12-22 15:02 | disposition home or self-care (01) | DRG 520 ==
LOC: SDC 19:08 → MS3 19:08
PROVIDERS: Anesthesiology; Admitting Provider Orthopaedic Surgery; PCP Registered Nurse; Referring Provider Orthopaedic Surgery
PROC: 01NB0ZZ Release Lumbar Nerve, Open Approach (ICD-10-PCS; CPT 63030; principal; 2020-12-19 07:00)
DX: M48.061 Spinal stenosis, lumbar region without neurogenic claudication (principal); I10 Essential (primary) hypertension; E03.9 Hypothyroidism, unspecified; M06.9 Rheumatoid arthritis, unspecified; G47.30 Sleep apnea, unspecified; F32.9 Major depressive disorder, single episode, unspecified; F41.9 Anxiety disorder, unspecified; Z79.890 Hormone replacement therapy; Z79.899 Other long term (current) drug therapy; Z87.891 Personal history of nicotine dependence; Z85.820 Personal history of malignant melanoma of skin
CPT/HCPCS: 36415; 72020; 80048; 82962; 83735; 84443; 85025; 86703; 86704; 86705; 86706; 86708; 86709; 86803; 87081; 87340; 93005; 93970; 97116; 97162; 97530; 99251; J7120; A4216; G0463; J2405

== ENCOUNTER → 2021-01-02 12:46 | Outpatient (CLI) | payer MEDICARE, SELFPAY ==
[2020-12-26 13:06] VITALS: BMI 25.2
--- NOTE | 2021-01-02 12:48 | VDLE_ITS ---
Reason For Study: PAIN RIGHT GSV is normal. CFV is compressible, spontaneous, phasic, competent and demonstrates normal augmentation. FV is compressible, spontaneous, phasic, competent and demonstrates normal augmentation. POP V is compressible, spontaneous, phasic, competent and demonstrates normal augmentation. T/P Trunk is compressible. PTV is compressible. RT PerV is compressible. Procedure Exam performed in department. A preliminary report was called and/or faxed to BARAK JEAN-BAPTISTE. VL/Venous Duplex US, Unilateral Interpretation Summary There is no evidence of right lower extremity deep vein thrombosis. Right great saphenous vein appears patent and compressible segmentally. 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 Clinical correlation would be appropr iate. Ordering Physician: Barak Jean-Baptiste Referring Physician: SEVERO TAM Performed By: Geeta Lynch, SEBASTIAN, RVT
== END ==
LOC: CVS 12:47
PROVIDERS: PCP Registered Nurse; Referring Provider Orthopaedic Surgery; Visit Provider Orthopaedic Surgery
DX: M79.89 Other specified soft tissue disorders (principal)
CPT/HCPCS: 93971

== ENCOUNTER 2021-01-03 12:08 | Inpatient (IN) | payer MEDICARE, SELFPAY ==
[2020-12-26 13:06] VITALS: BMI 25.2
[2021-01-03 12:08] VITALS: PULSE 72; RESP 16; TEMP 36.2
[2021-01-03 12:09] VITALS: BP 122/81; PULSE 68; RESP 18; TEMP 36.2; O2SAT 96; BMI 26.4
--- NOTE | 2021-01-03 12:16 | MRI_ITS ---
HISTORY: pain, recent surgery 12/19/20, pain radiating down right leg EXAMINATION: MR Spine Lumbar WO/W Contrast TECHNIQUE: Multiplanar and multisequence MR images of the lumbar spine. IV Contrast dosage and agent: 14 cc Dotarem COMPARISON: None FINDINGS: VERTEBRAE: Chronic L1 compression fracture. Anatomic alignment. Surgical changes to the posterior elements at L2-3 and L4-5 with decompressive laminectomies.No expansile or destructive lesion. CORD: Normal visualized portions of the spinal cord and cauda equina, with the tip of the conus medullaris at the L1 level. No intradural or intramedullary soft tissue mass or epidural fluid collection. SOFT TISSUES: Diffuse postoperative enhancement of the soft tissues at the operative sites, L2-3 and L4-5. Fluid signal collection at the operative site posterior to the wide laminectomies measures 2.9 x 1.7 x 1.1 cm with mild peripheral enhancement. L1/L2: No disc bulge, central canal stenosis, or neural foraminal stenosis. L2/L3: Circumferential annular bulge encroaches on the bilateral neural foramina. L3/L4: Circumferential annular bulge produces moderate central and bilateral foraminal stenosis in combination with posterior element hypertrophy. L4/L5: Circumferential annular bulge encroaches on the left neural foramen. L5/S1: No disc bulge, central canal stenosis, or neural foraminal stenosis. MRI/Spine Lumbar W/WO Contrast IMPRESSION: Postoperative changes from decompression laminectomies at L2-3 and L4-5. Fluid collection in the soft tissues posterior to the laminectomies at L4-5, postoperative seroma, possible infected collection. Foraminal stenoses at L2-3, L3-4 and L4-5 as above. at 1502 Reported and signed by: Bereket Macias MD Electronically Signed: Bereket Macias MD at 15:01 EDT Tel , Service support ,
[2021-01-03] MEDS: Morphine 4 MG/ML Syringe IV ×2 (12:40→15:27)
[2021-01-03] MEDS: Ondansetron 4 MG/2 ML Vial IV (12:40)
--- NOTE | 2021-01-03 12:40 | RAD_ITS ---
HISTORY: pain EXAMINATION/TECHNIQUE: XR Femur Min 2 Views: COMPARISON: None FINDINGS: BONES/JOINTS: No acute fracture or dislocation. Degenerative changes at the knee. No sclerotic or destructive changes observed. SOFT TISSUES: No soft tissue swelling or gas. No radiopaque foreign body. RAD/Femur Min 2 Views IMPRESSION: No acute bony abnormality. at 1511 Reported and signed by: Bereket Macias MD Electronically Signed: Bereket Macias MD at 15:10 EDT Tel , Service support ,
--- NOTE | 2021-01-03 12:40 | RAD_ITS ---
HISTORY: pain EXAMINATION/TECHNIQUE: XR Tibia/Fibula 2 Views: COMPARISON: None FINDINGS: BONES/JOINTS: No acute fracture or dislocation. Degenerative changes of the knee. No sclerotic or destructive changes observed. SOFT TISSUES: No soft tissue swelling or gas. No radiopaque foreign body. RAD/Tibia & Fibula 2 Views IMPRESSION: Degenerative changes without acute bony abnormality. at 1513 Reported and signed by: Bereket Macias MD Electronically Signed: Bereket Macias MD at 15:11 EDT Tel , Service support ,
--- NOTE | 2021-01-03 12:40 | RAD_ITS ---
HISTORY: pain EXAMINATION/TECHNIQUE: XR Foot Min 3 Views: COMPARISON: None FINDINGS: BONES/JOINTS: No acute fracture or dislocation. Mild degenerative changes. No sclerotic or destructive changes observed. SOFT TISSUES: No soft tissue swelling or gas. No radiopaque foreign body. RAD/Foot min 3 Views IMPRESSION: Degenerative changes without acute bony abnormality. at 1508 Reported and signed by: Bereket Macias MD Electronically Signed: Bereket Macias MD at 15:06 EDT Tel , Service support ,
[2021-01-03 12:48] LABS: Absolute Lymphocyte Count 1.17 X10^3/uL (0.83-4.51); Absolute Neutrophil Count 7.6 X10^3/uL (2.0-7.7); Basophil# 0.01 X10^3/uL; Basophil% 0.1 % (0-1); Eosinophil# 0.04 X10^3/uL; Eosinophils% 0.4 % (0-5); Hematocrit 36.1 % (37-47); Hemoglobin 11.8 g/dL (12.0-15.0); Lymphocyte # 1.17 X10^3/ul (0.83-4.51); Lymphocyte % 12.3 % (19-41); Mean Corp Hgb Conc 32.7 g/dL (32-36); Mean Corpuscular Hgb 28.2 pg (27.0-32.0); Mean Corpuscular Volume 86.2 fL (81-99); Mean Platelet Vol. 9.4 fl (6.2-12.0); Monocyte# 0.65 X10^3/uL; Monocyte% 6.8 % (0-10); NRBC Flagged by Analyzer 0 % (0-5); Neutrophil # 7.62 X10^3/uL (2.7-7.7); Platelet Count 462 K/mm3 (150-450); RBC Distribution Width CV 13.2 % (11.6-14.6); RBC Distribution Width SD 41.1 fl (35.1-43.9); Red Blood Count 4.19 M/mm3 (4.2-5.4); White Blood Count 9.5 K/mm3 (4.4-11.0)
[2021-01-03 13:03] LABS: AST(SGOT) 16 U/L (15-37); Alanine Aminotransfer ALT/SGPT 30 U/L (13-56); Albumin, Serum 3.7 g/dL (3.2-5.0); Alkaline Phosphatase 73 U/L (45-117); Anion Gap 4 (5-15); BUN 24 mg/dL (7-18); BUN/Creat Ratio 18.2 RATIO (10-20); Calcium,Total 8.9 mg/dL (8.5-10.1); Chloride 104 mmol/L (98-107); Creatinine, Serum 1.32 mg/dL (0.55-1.02); EST Glomerular Filtration Rate 41 mL/min (>60); Est Glom Filt Rate - Afr Amer 49 mL/min (>60); Globulin 3.7 g/dL (2.2-4.2); Glucose 114 mg/dL (74-106); Potassium 4.3 mmol/L (3.5-5.1); Protein, Total 7.4 g/dL (6.4-8.2); Sodium Level 135 mmol/L (136-145)
--- NOTE | 2021-01-03 13:27 | ED.VIS.BACK ---
HPI History of Present Illness Chief Complaint: Back Narrative Narrative: Patient presents with back pain and radiation to the right lower extremity, she had spinal stenosis and she had surgery by Dr. Est[facility] mosqueda over 2 weeks ago, she continues to have this pain. She has no fever or chills, she has no bowel or bladder compromise she has no urinary retention symptoms or suprapubic pain. She has no saddle anesthesia. She has no weakness her sole complaint is pain especially when turning or trying to ambulate. She has taken her oxycodone with only minimal relief of symptoms. She actually was supposed to have an outpatient ultrasound an hour from arrival to the ED but she could not make it on her own so she called EMS. [facility] Medical History Ambulates with cane Anxiety Anxiety and depression Arthritis Back pain Cancer Cardiology follow-up encounter Chronic cough CKD (chronic kidney disease) CPAP (continuous positive airway pressure) dependence Depression Former smoker Gastric reflux History of edema History of epidural anesthesia History of fracture of left ankle History of irregular heartbeat History of pain when walking History of stress test (~2019) Hx of carpal tunnel syndrome Hx of heart valve insufficiency Hx of melanoma of skin Hx of rheumatic fever Hx of skin malignancy Hx: recurrent pneumonia Hypertension Injury of back Leg cramps Low iron Lung nodule Normal echocardiogram (~2019) Rheumatoid arthritis Shortness of breath on exertion Sleep apnea Thyroid disease Wears dentures Wears glasses Wears hearing aid Home Medications Fish Oil 2 ea PO DAILY 12/09/13 [History Last Taken 06/02/16] cholecalciferol (vitamin D3) [Vitamin D3] 2,000 unit PO DAILY 12/09/13 [History Last Taken 06/02/16] lansoprazole [Prevacid] 15 mg PO BID PRN 12/09/13 [History Last Taken 03/02/17 06:10 15 MG] vitamin B complex 1 ea PO DAILY 12/09/13 [History Last Taken 06/02/16] levothyroxine 50 mcg PO DAILY 02/24/17 [History Last Taken 03/02/17 06:10 50 MCG] duloxetine 60 mg capsule,delayed release 30 mg PO DAILY cap 11/19/20 [History Last Taken Unknown] losartan 50 mg PO DAILY 12/05/20 [History Last Taken Unknown] tramadol 50 mg tablet 50 mg PO Q6H PRN 10 Days #40 tab 12/26/20 [Rx Last Taken Unknown] hydrocodone-acetaminophen 5-325mg 5mg-325mg 1 tab PO Q4H PRN 6 Days #40 tab 01/03/21 [Rx Last Taken Unknown] Allergy/AdvReac Type Severity Reaction Status Date / Time gabapentin Allergy Rash Verified 01/03/21 12:20 irbesartan Allergy Other Verified 01/03/21 12:20 lisinopril Allergy Other Verified 01/03/21 12:20 nifedipine [From Procardia] Allergy Other Verified 01/03/21 12:20 pravastatin Allergy Other Verified 01/03/21 12:20 tizanidine [Tizanidine] Allergy Other Verified 01/03/21 12:20 levofloxacin AdvReac Pain in Verified 01/03/21 12:20 joints Surgical History History of adenoidectomy History of cardiac catheterization (~2019) History of carpal tunnel release History of toe surgery Hx of hand surgery Hx of tonsillectomy Hx of tubal ligation Social History Smoking Status: Former smoker ROS ROS ED ROS Narrative Past medical history: Reviewed, including chronic back pain, spinal stenosis, hypothyroidism Medications: Reviewed Social history: Noncontributory Review of systems: All systems negative except as indicated General: No fever Eyes: No visual changes ENT: No upper airway congestion, normal voice Neck: No neck pain Cardiovascular: No chest pain Respiratory: No shortness of breath or cough Gastrointestinal: No abdominal pain, nausea vomiting or diarrhea Genitourinary: No dysuria Musculoskeletal: Back pain with radiation to the right lower extremity as in HPI. Skin: No rash Neurological: No memory loss, confusion or any focal weakness Psych: No recent behavioral changes Hematologic: No easy bleeding or easy bruising EXAM Physical Exam Narrative Exam Narrative: Vitals reviewed General: Patient appears in discomfort HEENT: Moist mucous membranes Neck: Nontender Cardiovascular normal heart rate Respiratory: No respiratory difficulty speaking in full sentences Abdomen: Soft and nontender, there is no suprapubic mass or pain Back: There is some tenderness over the lumbar region, pain is spinal and paraspinal both. Extremities: Moves all extremities without joint pain or signs of trauma Neurological: There is normal plantar flexion and dorsiflexion of both feet and great toes. Patellar and Achilles reflexes are normal. Normal strength and sensation. Positive straight leg test on the right. Skin: No rash Psychiatric: Slightly anxious. Const Vital Signs: 01/03/21 12:08 01/03/21 12:09 Temperature 97.2 F L 97.2 F L Temperature Source Temporal Temporal Pulse Rate 72 68 Respiratory Rate 16 18 Blood Pressure 122/81 H Blood Pressure Mean 94 Pulse Ox 96 Oxygen Delivery Method Room Air Room Air [facility] Lab Data Labs: Laboratory Results - last 24 hr 01/03/21 01/03/21 12:41 12:41 WBC 9.5 RBC 4.19 L Hgb 11.8 L Hct 36.1 L MCV 86.2 MCH 28.2 MCHC 32.7 RDW Std Deviation 41.1 RDW Coeff of Peter 13.2 Plt Count 462 H MPV 9.4 Immature Gran % (Auto) 0.400 Neut % (Auto) 80.0 H Lymph % (Auto) 12.3 L Kinney % (Auto) 6.8 Eos % (Auto) 0.4 Baso % (Auto) 0.1 Absolute Neuts (auto) 7.6 Absolute Lymphs (auto) 1.17 Nucleated RBC % 0 Sodium 135 L Potassium 4.3 Chloride 104 Carbon Dioxide 27.0 Anion Gap 4 L BUN 24 H Creatinine 1.32 H Estim Creat Clear Calc 27.40 Est GFR (MDRD) Af Amer 49 L Est GFR (MDRD) Non-Af 41 L BUN/Creatinine Ratio 18.2 Glucose 114 H Calcium 8.9 Total Bilirubin 0.40 AST 16 ALT 30 Alkaline Phosphatase 73 Total Protein 7.4 Albumin 3.7 Globulin 3.7 Albumin/Globulin Ratio 1.0 Discharge Plan Triage Chief Complaint: Back ED Provider: Kaden Blanchard Dx/Rx/DC Orders Prescriptions: No Action duloxetine 60 mg capsule,delayed release(DR/EC) 30 mg PO DAILY RF: 0 hydrocodone-acetaminophen 5-325 mg tablet 1 tab PO Q4H PRN (Reason: pain) 6 Days Qty: 40 RF: 0 tramadol 50 mg tablet 50 mg PO Q6H PRN (Reason: pain) 10 Days Qty: 40 RF: 0 lansoprazole [Prevacid] 15 MG capsule 15 mg PO BID PRN (Reason: Indigestion) RF: 0 vitamin B complex 1 EACH capsule 1 ea PO DAILY RF: 0 Fish Oil 1 EACH capsule 2 ea PO DAILY RF: 0 cholecalciferol (vitamin D3) [Vitamin D3] 2,000 UNIT tablet 2,000 unit PO DAILY RF: 0 levothyroxine 50 MCG tablet 50 mcg PO DAILY RF: 0 losartan 50 mg Tablet 50 mg PO DAILY RF: 0 Primary Care Provider: Sandy Giraldo NP
--- NOTE | 2021-01-03 15:42 | NURSING ---
312 CARMEN BACK PAIN
[2021-01-03 15:54] VITALS: BP 185/72; PULSE 67; PULSE 71; RESP 18; TEMP 36.2; TEMP 36.3; O2SAT 96; O2SAT 97
[2021-01-03 16:41] VITALS: BMI 26.4
--- NOTE | 2021-01-03 16:57 | PCM.HP.STD ---
HPI - General General Date of Admission: 01/03/21 HPI Narrative DARYA PINEDA, is a 85 F who presented to the emergency department at [facility] on 01/03/2021 with the complaint of intractable low back pain and right leg pain. She had surgery on 12/19/2020 for spinal stenosis at L2-3, L4-L5 that included complete lumbar decompressions at both levels. He was discharged home on 12/22/2020 but developed radicular symptoms that are quite different than her symptoms prior to surgery. She was trialed on steroids and her pain medications were changed but today her pain was so bad that she had to present to the emergency department as family was unable to get her out of bed. Her vital signs are stable. Her CBC is stable other than a mild anemia. Her BMP shows mild hyponatremia at 135 and an elevated BUN and creatinine from baseline indicating mild dehydration. An MRI of her lumbar spine was obtained and showed postoperative changes from her decompression laminectomies at above levels with a fluid collection in the soft tissues posterior to the laminectomies at L4-L5 and a postoperative seroma. It notes that this is a possibly infected collection. She also has foraminal stenosis at L2-L3 L3-L4 and L4-L5. A venous duplex was done on 01/02/2021 and shows no signs of clot. X-rays of the femur foot and right tibia and fibula were performed and were negative for any signs of fracture. She will be admitted to [facility] for pain management. [facility] Medical History Ambulates with cane Anxiety Anxiety and depression Arthritis Back pain Cancer Cardiology follow-up encounter Chronic cough CKD (chronic kidney disease) CPAP (continuous positive airway pressure) dependence Depression Former smoker Gastric reflux History of edema History of epidural anesthesia History of fracture of left ankle History of irregular heartbeat History of pain when walking History of stress test (~2019) Hx of carpal tunnel syndrome Hx of heart valve insufficiency Hx of melanoma of skin Hx of rheumatic fever Hx of skin malignancy Hx: recurrent pneumonia Hypertension Injury of back Leg cramps Low iron Lung nodule Normal echocardiogram (~2019) Rheumatoid arthritis Shortness of breath on exertion Sleep apnea Thyroid disease Wears dentures Wears glasses Wears hearing aid Home Medications Fish Oil 2 ea PO DAILY 12/09/13 [History Last Taken 06/02/16] cholecalciferol (vitamin D3) [Vitamin D3] 2,000 unit PO DAILY 12/09/13 [History Last Taken 01/02/21] lansoprazole [Prevacid] 15 mg PO BID PRN 12/09/13 [History Last Taken 03/02/17 06:10 15 MG] vitamin B complex 1 ea PO DAILY 12/09/13 [History Last Taken 01/02/21] levothyroxine 50 mcg PO DAILY 02/24/17 [History Last Taken 01/03/21] losartan 50 mg PO DAILY 12/05/20 [History Last Taken 01/02/21] tramadol 50 mg tablet 50 mg PO Q6H PRN 10 Days #40 tab 12/26/20 [Rx Last Taken 01/03/21 05:30] acetaminophen [Tylenol Extra Strength] 1,000 mg PO Q8H PRN 01/03/21 [History Last Taken 01/02/21] hydrocodone-acetaminophen 5-325mg 5mg-325mg 1 tab PO Q4H PRN 6 Days #40 tab 01/03/21 [Rx Last Taken 01/03/21 10:45] Allergy/AdvReac Type Severity Reaction Status Date / Time gabapentin Allergy Rash Verified 01/03/21 12:20 irbesartan Allergy Other Verified 01/03/21 12:20 lisinopril Allergy Other Verified 01/03/21 12:20 nifedipine [From Procardia] Allergy Other Verified 01/03/21 12:20 pravastatin Allergy Other Verified 01/03/21 12:20 tizanidine [Tizanidine] Allergy Other Verified 01/03/21 12:20 levofloxacin AdvReac Pain in Verified 01/03/21 12:20 joints Surgical History History of adenoidectomy History of cardiac catheterization (~2019) History of carpal tunnel release History of toe surgery Hx of hand surgery Hx of tonsillectomy Hx of tubal ligation Social History Smoking Status: Former smoker ROS Constitutional Constitutional: Denies anorexia, change in weight, chills, fatigue, fever(s), malaise, night sweats, weakness or other Eyes Eyes: Denies blurry vision, change in eye color, change in vision, discharge from eye(s), double vision, erythema, eye pain, loss of vision or other ENT HEENT: Denies abnormal hearing, dysphagia, ear pain, epistaxis, headache(s), hearing loss, nasal congestion, nasal discharge, post nasal drip, sinus pressure, sore throat or other Cardiovascular Cardiovascular: Denies chest pain, claudication, dyspnea on exertion, edema, lightheadedness, orthopnea, palpitations, paroxysmal nocturnal dyspnea, rapid heart rate, syncope or other Respiratory/Chest Respiratory/Chest: Denies cough, dyspnea, excessive phlegm production, hemoptysis, productive cough, shortness of breath at rest, shortness of breath with exertion, wheezing or other Gastrointestinal Gastrointestinal: Denies abdominal pain, coffee ground emesis, constipation, diarrhea, dyspepsia, hematemesis, hematochezia, loose stools, melena, nausea, vomiting or other Genitourinary Genitourinary: Reports difficulty urinating; Denies burning urination, dysuria, hematuria, nocturia, urinary frequency, urinary hesitancy, urinary incontinence, urinary urgency or other Musculoskeletal Musculoskeletal: Reports back pain and other Details: Right leg pain with movement Neurologic Neurologic: Reports abnormal gait; Denies focal weakness, numbness, paresthesias or tingling Psychiatric Psychiatric: Denies anxiety, depression, homicidal ideation, suicidal ideation or other Endocrine Endocrinology: Denies change in body appearance, cold intolerance, excessive sweating, heat intolerance, polydipsia, polyuria or other Hematologic/Lymphatic Hematologic/Lymphatic: Denies anemia, easy bleeding, easy bruising, lymphadenopathy or other Allergic/Immunologic Allergic/Immunologic: Denies rhinitis, hives, eczemia, asthma or other Vital Signs Vital Signs Vital Signs: 01/03/21 12:08 01/03/21 12:09 01/03/21 15:54 Temperature 97.2 F L 97.2 F L 97.2 F L Temperature Source Temporal Temporal Temporal Pulse Rate 72 68 67 Respiratory Rate 16 18 18 Blood Pressure 122/81 H 185/72 H Blood Pressure Mean 94 109 Pulse Ox 96 96 Oxygen Delivery Method Room Air Room Air Room Air Weight Weight: 69.8 kg Body Mass Index (BMI) 26.4 Physical Exam Const alert and oriented x3 Constitutional Narrative: Elderly white female lying in bed, daughter at bedside, nontoxic-appearing, appears comfortable at rest but severe pain in right leg with trying to move General Appearance: cooperative HEENT normocephalic and head/scalp atraumatic HEENT Narrative: Upper dentures in place, Mallampati 2 Eyes PERRL, EOMs intact bilaterally and conjunctivae normal Neck no lymphadenopathy, supple, no JVD and no carotid bruits Resp normal respiratory effort, no retractions, no use of accessory muscles and clear to auscultation bilaterally Auscultation: Negative for crackles, rales, rhonchi or wheezes Cardio regular rate, regular rhythm, S1 normal heart sound, S2 normal heart sound, no murmurs, no rub, no gallops, no clicks and no JVD GI normal to inspection, nondistended, normoactive bowel sounds, soft to palpation, non-tender and non-distended Extremity normal to inspection and no clubbing, cyanosis or edema Peripheral Pulses: Yes pulses 2+ throughout Skin no rashes or lesions noted, no wounds, skin turgor normal, no jaundice, no petechiae and no mottling Neuro oriented x3, CN's II-XII intact bilaterally, moves all extremities and no focal motor deficits Neuro Narrative: Weakness in right leg but limited to pain strength otherwise is 5 out of 5, reflexes within normal limits bilateral lower extremities, no sensory deficits, straight leg raise is negative Sensorium / Orientation: awake and alert Psych affect normal Mood & Affect: anxious Results Lab / Micro Data Attestation: I reviewed the patient's lab results. Result Diagrams: 01/03/21 12:41 01/03/21 12:41 Labs: Laboratory Results - last 24 hr 01/03/21 12:41: WBC 9.5, RBC 4.19 L, Hgb 11.8 L, Hct 36.1 L, MCV 86.2, MCH 28.2, MCHC 32.7, RDW Std Deviation 41.1, RDW Coeff of Peter 13.2, Plt Count 462 H, MPV 9.4, Immature Gran % (Auto) 0.400, Neut % (Auto) 80.0 H, Lymph % (Auto) 12.3 L, Menard % (Auto) 6.8, Eos % (Auto) 0.4, Baso % (Auto) 0.1, Absolute Neuts (auto) 7.6, Absolute Lymphs (auto) 1.17, Nucleated RBC % 0 01/03/21 12:41: Sodium 135 L, Potassium 4.3, Chloride 104, Carbon Dioxide 27.0, Anion Gap 4 L, BUN 24 H, Creatinine 1.32 H, Estim Creat Clear Calc 27.40, Est GFR (MDRD) Af Amer 49 L, Est GFR (MDRD) Non-Af 41 L, BUN/Creatinine Ratio 18.2, Glucose 114 H, Calcium 8.9, Total Bilirubin 0.40, AST 16, ALT 30, Alkaline Phosphatase 73, Total Protein 7.4, Albumin 3.7, Globulin 3.7, Albumin/Globulin Ratio 1.0 Radiology Impression Lumbar Spine MRI 01/03/21 12:16 IMPRESSION: Postoperative changes from decompression laminectomies at L2-3 and L4-5. Fluid collection in the soft tissues posterior to the laminectomies at L4-5, postoperative seroma, possible infected collection. Foraminal stenoses at L2-3, L3-4 and L4-5 as above. at 1502 Reported and signed by: Bereket Macias MD Electronically Signed: Bereket Macias MD at 15:01 EDT Tel , Service support , Femur X-Ray 01/03/21 12:40 IMPRESSION: No acute bony abnormality. at 1511 Reported and signed by: Bereket Macias MD Electronically Signed: Bereket Macias MD at 15:10 EDT Tel , Service support , Foot X-Ray 01/03/21 12:40 IMPRESSION: Degenerative changes without acute bony abnormality. at 1508 Reported and signed by: Bereket Macias MD Electronically Signed: Bereket Macias MD at 15:06 EDT Tel , Service support , Tibia/Fibula X-Ray 01/03/21 12:40 IMPRESSION: Degenerative changes without acute bony abnormality. at 1513 Reported and signed by: Bereket Macias MD Electronically Signed: Bereket Macias MD at 15:11 EDT Tel , Service support , Assessment & Plan Assessment/Plan (1) Radiculitis with lower extremity symptoms: (2) Seroma after procedure: (3) NIHARIKA (acute kidney injury): (4) Hyponatremia: PLAN: Intractable low back pain status post lumbar spinal decompression at L4-5 and L2-3 -Patient has received outpatient steroids and oral narcotics with no resolve -Unable to take gabapentin/Lyrica secondary to side effects -Continue scheduled Tylenol -MRI shows seroma with possible infection -Check MRSA PCR -Start Vanco and Zosyn for now until this can be clarified further -Scheduled oxycodone every 6 hours with breakthrough morphine 2 mg -Aggressive bowel regimen -PT/OT consultation -Consultation to Dr. Jean-Baptiste Urinary retention -Place Richard Seroma after spinal surgery -Per MRI question infection -Antibiotics as above -MRSA PCR NIHARIKA-mild -Baseline serum creatinine is 0.9-1 -Current serum creatinine is 1.32 -IV fluids at 70 cc/h -Repeat BMP in a.m. Mild hyponatremia -Suspect hypovolemia with NIHARIKA -Repeat BMP in a.m. Hypertension -Continue home medications Hypothyroidism -Continue home levothyroxine GERD -Continue Prevacid DVT prophylaxis -Lovenox CODE STATUS -Full code
[2021-01-03 17:00] VITALS: BP 184/88; PULSE 71; RESP 18; TEMP 36.6; O2SAT 99
[2021-01-03] MEDS: oxyCODONE 5 MG Tablet 10 MG PO (18:05)
[2021-01-03] MEDS: 0.9% Normal Saline 1,000 ML 70 ML IV (18:06)
--- NOTE | 2021-01-03 19:21 | PCM.RX.CS ---
Consult Pharmacy has been consulted to manage selected antiobiotic: Vancomycin Type of Consult: New start Suspected Infection: Other Prior Doses of Antibiotics Received/Current Regimen: Received 1250mg iv x 1 in ER. Labs: Sodium 135 mmol/L (136-145) L 01/03/21 12:41 Potassium 4.3 mmol/L (3.5-5.1) 01/03/21 12:41 Chloride 104 mmol/L (98-107) 01/03/21 12:41 Carbon Dioxide 27.0 mmol/L (21.0-32.0) 01/03/21 12:41 Anion Gap 4 (5-15) L 01/03/21 12:41 BUN 24 mg/dL (7-18) H 01/03/21 12:41 Creatinine 1.32 mg/dL (0.55-1.02) H 01/03/21 12:41 Est GFR (MDRD) Af Amer 49 mL/min (>60) L 01/03/21 12:41 Est GFR (MDRD) Non-Af 41 mL/min (>60) L 01/03/21 12:41 BUN/Creatinine Ratio 18.2 RATIO (10-20) 01/03/21 12:41 Glucose 114 mg/dL (74-106) H 01/03/21 12:41 Weight used for dosin.8 kg Estimated Creatinine Clearance: 27ml/min Goal Trough: 15-20 mcg/mL Pharmacy Plan for Drug Dosing: Will begin 750mg iv q24h per pharmacokinetic protocol. Trough level ordered for ..21 before 3rd total dose. Pharmacy Service will continue to monitor and adjust dosing as required. Follow-Up Labs: Trough Vancomycin - 7.24.21 @1530 before 1600 dose
[2021-01-03] MEDS: Morphine 2 MG/ML Syringe IV (20:32)
[2021-01-03] MEDS: Senna/Docusate Sodium 1 Tablet PO (20:45)
[2021-01-03 20:46] VITALS: BP 184/72; PULSE 72; RESP 18; TEMP 36.7; O2SAT 96
[2021-01-03] MEDS: Labetalol (Prefilled) 20 MG/4 ML IV (21:00)
[2021-01-03 21:03] VITALS: PULSE 67
[2021-01-03 21:19] LABS: Bacteria 0 SEEN /hpf (None Seen); Mucous, Urine 0 SEEN /hpf (<or=2+); Squamous Epithelial Cells - UA 0 SEEN /hpf (5-10)
[2021-01-03 21:25] LABS: Color, Urine Yellow (Yellow); Glucose, Dipstick Normal (Normal); Ketone-Dipstick Negative (Negative); Leukocyte Esterase-Dipstick 500 /ul (Negative); Nitrite-Dipstick Negative (Negative); Occult Blood-Urine 25 /ul (Negative); Protein-Dipstick Negative (Negative); Urine Bilirubin Dipstick Negative (Negative); Urine Clarity Sl. Cloudy (Clear); Urine Urobilinogen Normal (Normal)
[2021-01-03 21:40] LABS: White Blood Cells >100 SEEN /hpf (0-5)
[2021-01-03 21:41] LABS: Red Blood Cells-Urine 0-5 SEEN /hpf (0-5)
[2021-01-03 23:03] LABS: M R Staph aureus DNA By PCR Negative (Negative); Probe Check PASS; Specimen Processing Control PASS
[2021-01-04] VITALS (12 sets, daily range): BP systolic 127–153; BP diastolic 50–69; PULSE 60–68; RESP 16–18; TEMP 36.3–36.9; O2SAT 97–100
[2021-01-04] MEDS: Acetaminophen 500 MG Tablet 1000 MG PO ×3 (00:08→16:55)
[2021-01-04] MEDS: oxyCODONE 5 MG Tablet 10 MG PO ×2 (00:08→10:25)
[2021-01-04] MEDS: Morphine 2 MG/ML Syringe IV (05:19)
[2021-01-04] MEDS: Levothyroxine 50 MCG Tablet PO (05:24)
--- NOTE | 2021-01-04 06:00 | NM_ITS ---
CLINICAL: Female, 85 years old patient with back pain and radicular symptoms down right and left lower extremities. Status Post surgery two weeks ago WHOLE BODY NUCLEAR BONE SCAN TECHNIQUE: Following the IV administration of 25.3 mCi of Tc MDP, whole body bone imaging was performed with a gamma camera following a three hour delay. COMPARISON STUDIES : NM - None. CR - Radiographs of lumbar spine dated 11/19/2020 CT - Not available for review at this time. MR - 01/03/2021 US - Not available for review at this time. FINDINGS: There is subtle focal area of increased radiopharmaceutical uptake at the L3 level which may be secondary to recent surgery. The spine in general has generally normal pharmaceutical uptake. There is mild increased radiopharmaceutical uptake by the shoulders, elbows, wrists, metacarpophalangeal joints, knees and ankles consistent with degenerative arthropathy. Increased radiopharmaceutical uptake by the nasopharynx may be secondary to acute infection or inflammation. Both kidneys appear to have generally normal appearance. The there is radiopharmaceutical visible in the urinary bladder. There is intensely increased radiopharmaceutical uptake by the distal left fibula that suggests possible sequela of fracture. NM/Bone Scan Whole Body IMPRESSION: 1. Subtle increased radiopharmaceutical uptake at L3 may be secondary to recent surgery. 2. Intense focus of increased radiopharmaceutical uptake by the distal left fibula suggests sequela of fracture. Infection is thought less likely. Electronically Signed: Maryjane Lugo MD at 10:48 EDT , Service support ,
[2021-01-04 06:49] LABS: Absolute Lymphocyte Count 1.09 X10^3/uL (0.83-4.51); Absolute Neutrophil Count 9.4 X10^3/uL (2.0-7.7); Basophil# 0.02 X10^3/uL; Basophil% 0.2 % (0-1); Eosinophil# 0.07 X10^3/uL; Eosinophils% 0.6 % (0-5); Hematocrit 34.2 % (37-47); Hemoglobin 11.1 g/dL (12.0-15.0); Lymphocyte # 1.09 X10^3/ul (0.83-4.51); Lymphocyte % 9.6 % (19-41); Mean Corp Hgb Conc 32.5 g/dL (32-36); Mean Corpuscular Volume 86.4 fL (81-99); Mean Platelet Vol. 9.9 fl (6.2-12.0); Monocyte# 0.77 X10^3/uL; Monocyte% 6.8 % (0-10); NRBC Flagged by Analyzer 0 % (0-5); Neutrophil # 9.36 X10^3/uL (2.7-7.7); Neutrophil % 82.4 % (47-70); Platelet Count 426 K/mm3 (150-450); RBC Distribution Width CV 13.4 % (11.6-14.6); Red Blood Count 3.96 M/mm3 (4.2-5.4); White Blood Count 11.4 K/mm3 (4.4-11.0)
[2021-01-04 07:18] LABS: Anion Gap 8 (5-15); BUN 19 mg/dL (7-18); BUN/Creat Ratio 16.4 RATIO (10-20); Calcium,Total 8.4 mg/dL (8.5-10.1); Chloride 103 mmol/L (98-107); Creatinine, Serum 1.16 mg/dL (0.55-1.02); EST Glomerular Filtration Rate 47 mL/min (>60); Est Glom Filt Rate - Afr Amer 57 mL/min (>60); Estimated Creatinine Clearance 31.17 ml/min; Glucose 99 mg/dL (74-106); Magnesium 2.3 mg/dL (1.6-2.6); Potassium 4.5 mmol/L (3.5-5.1); Sodium Level 137 mmol/L (136-145)
--- NOTE | 2021-01-04 08:45 | NURSING ---
Pt to [facility] for testing
[2021-01-04] MEDS: Ondansetron 4 MG/2 ML Vial IV (09:37)
[2021-01-04] MEDS: 0.9% Saline Lock 10 ML Syringe IV (09:37)
[2021-01-04] MEDS: 0.9% Normal Saline 1,000 ML 70 ML IV ×2 (09:37→22:05)
[2021-01-04] MEDS: Losartan Potassium 50 MG Tablet PO (10:25)
[2021-01-04] MEDS: Cholecalciferol (VIT D3) 25 MCG TABLET (1,000 UNITS) 50 MCG PO (10:25)
[2021-01-04] MEDS: Vitamin B Comp W-C Capsule 1 CAP PO (10:25)
--- NOTE | 2021-01-04 11:35 | CASEMGMT ---
Addendum entered by Leanna Diaz 01/04/21 14:28: SUKI MONK back into pt room. Dtr and pt state she would like s/t rehab at this time. Notified Ricardo ENGLISH. Pt screened for palliative care d/t readmission, pt met criteria. No order received at this time. Original Note: RN CM Readmission Note Previous Admission: 12/19/20-12/22/20 Diagnosis: lumbar decompression L2-3, L3-4 DC Disposition: Home with family support and private duty list given Current Admission Presentation: intractable back pain Pt presented to ER from home with intractable back pain. SUKI MONK in to pt room, pt states she did follow up with post hospitalization and she had been seen in the office most days since home. She states she had a pain injection by on Thursday. She reports she was supposed to have a MRI but she was unable to make it to the appt so squad was called and pt transported to ER. Pt dtr in room. States family had been staying with patient but she became worse. Pt was trialed on steroids and po pain meds as well. MRI showed postop seroma. Pt would like to return home if able, but realizes she may need s/t therapy. Currently has not seen pt yet this hospitalization. DC PLAN: Home vs s/t therapy at [facility].
--- NOTE | 2021-01-04 11:36 | CHAPLAIN ---
Type of Pastoral Visit _x__ Initial Visit ___ Follow-up Visit ___ On-call Visit ___ General Patient Visit ___ Spiritual Assessment ___ Family Conference ___ Bereavement ___ Rapid Response ___ Code Blue ___ Other (describe below) Pastoral Care Referral From _x__ Patient _x__ Family ___ Nurse ___ Physician ___ Brancher ___ Physical Chemistry Professor ___ Other (describe below) Sacrament/Intervention _x__ Active listening ___ Anointing ___ Bahai ___ Bereavement ___ Communion ___ Soledad exploration ___ ___ Life review _x__ Prayer ___ Reconciliation ___ Sacrament of Sick _x__ Supportive presence ___ Wedding ___ Other (describe below) Pastoral Comments daughter is with the patient; pt describes her pain and history of injury, surgery, and therapy; pt goal is to get relief and rodent exterminator solution; pt and daughter request prayers
--- NOTE | 2021-01-04 14:51 | PCM.PN.HOSP ---
Documented by User: Jonah GLASGOW 01/04/21 15:02 Subjective Subjective Patient is an 85-year-old female comfortably resting in bed after bone scan, alert and oriented x3. Patient reports feeling a little groggy from pain medications, otherwise reports that pain is controlled. Denies chest pain, shortness of breath, palpitations, hemoptysis, sputum production, fever, chills, N/V/D. Objective Data Objective Data Vital Signs: Vital Signs Temp Pulse Resp BP Pulse Ox 97.5 F L 68 16 134/63 H 98 01/04/21 13:15 01/04/21 13:15 01/04/21 13:15 01/04/21 13:15 01/04/21 13:15 Oxygen Delivery Method Room Air Weight: 153 lb 14.122 oz Body Mass Index (BMI) 26.4 Intake & Output: Intake and Output for Last 24 Hours 01/02/21 01/03/21 01/04/21 23:59 23:59 23:59 Intake Total 325 / 825 2460.00 / 2460.00 Output Total 900 / 1550 2024 / 2024 Balance -575 / -725 435.00 / 435.00 Lab / Micro Data Result Diagrams: 01/05/21 05:25 01/05/21 05:25 Labs: Laboratory Results - last 24 hr 01/03/21 21:00: Urine Color Yellow, Urine Clarity Sl. Cloudy, Urine pH 7.0, Ur Specific Theodore 1.010, Urine Protein Negative, Urine Glucose (UA) Normal, Urine Ketones Negative, Urine Occult Blood 25 H, Urine Nitrite Negative, Urine Bilirubin Negative, Urine Urobilinogen Normal, Ur Leukocyte Esterase 500 H, Urine RBC 0-5 SEEN, Urine WBC >100 SEEN, Ur Squamous Epith Cells 0 SEEN, Urine Bacteria 0 SEEN, Urine Mucus 0 SEEN 01/03/21 21:00: MRSA (PCR) Negative 01/04/21 05:55: WBC 11.4 H, RBC 3.96 L, Hgb 11.1 L, Hct 34.2 L, MCV 86.4, MCH 28.0, MCHC 32.5, RDW Std Deviation 42.0, RDW Coeff of Peter 13.4, Plt Count 426, MPV 9.9, Immature Gran % (Auto) 0.400, Neut % (Auto) 82.4 H, Lymph % (Auto) 9.6 L, Christian % (Auto) 6.8, Eos % (Auto) 0.6, Baso % (Auto) 0.2, Absolute Neuts (auto) 9.4 H, Absolute Lymphs (auto) 1.09, Nucleated RBC % 0 01/04/21 05:55: Sodium 137, Potassium 4.5, Chloride 103, Carbon Dioxide 26.0, Anion Gap 8, BUN 19 H, Creatinine 1.16 H, Estim Creat Clear Calc 31.17, Est GFR (MDRD) Af Amer 57 L, Est GFR (MDRD) Non-Af 47 L, BUN/Creatinine Ratio 16.4, Glucose 99, Calcium 8.4 L, Magnesium 2.3 01/04/21 05:55: Phosphorus 4.0 Radiography Diagnostic Testing: Radiology Impression Lumbar Spine MRI 01/03/21 12:16 IMPRESSION: Postoperative changes from decompression laminectomies at L2-3 and L4-5. Fluid collection in the soft tissues posterior to the laminectomies at L4-5, postoperative seroma, possible infected collection. Foraminal stenoses at L2-3, L3-4 and L4-5 as above. at 1502 Reported and signed by: Bereket Macias MD Electronically Signed: Bereket Macias MD at 15:01 EDT Tel , Service support , Femur X-Ray 01/03/21 12:40 IMPRESSION: No acute bony abnormality. at 1511 Reported and signed by: Bereket Macias MD Electronically Signed: Bereket Macias MD at 15:10 EDT Tel , Service support , Foot X-Ray 01/03/21 12:40 IMPRESSION: Degenerative changes without acute bony abnormality. at 1508 Reported and signed by: Bereket Macias MD Electronically Signed: Bereket Macias MD at 15:06 EDT Tel , Service support , Tibia/Fibula X-Ray 01/03/21 12:40 IMPRESSION: Degenerative changes without acute bony abnormality. at 1513 Reported and signed by: Bereket Macias MD Electronically Signed: Bereket Macias MD at 15:11 EDT Tel , Service support , Bone Scan Nuclear Medicine 01/04/21 06:00 IMPRESSION: 1. Subtle increased radiopharmaceutical uptake at L3 may be secondary to recent surgery. 2. Intense focus of increased radiopharmaceutical uptake by the distal left fibula suggests sequela of fracture. Infection is thought less likely. Electronically Signed: Maryjane Lugo MD at 10:48 EDT , Service support , Physical Exam Const alert, oriented x3 and no apparent distress HEENT head/scalp atraumatic and moist oral mucous membranes Head and Scalp: normocephalic Eyes EOMs intact bilaterally and conjunctivae normal Neck no lymphadenopathy, supple and no JVD Resp normal respiratory effort, no retractions and no use of accessory muscles Cardio regular rate, regular rhythm, no murmurs and no JVD GI normal to inspection, nondistended, normoactive bowel sounds and soft to palpation Extremity normal to inspection, full ROM and no clubbing, cyanosis or edema Skin no rashes or lesions noted, no wounds and skin turgor normal Neuro CN's II-XII intact bilaterally Psych affect normal Assessment & Plan Assessment/Plan (1) NIHARIKA (acute kidney injury): (2) Hyponatremia: (3) Spinal stenosis of lumbar region at multiple levels: (4) Lower back pain: PLAN: Day 2: See subjective. Discharge planning: Potential discharge to SNF, case management working with patient and family to determine discharge plan. 1) intractable lower back pain status post lumbar spinal decompression at L4-5 and L2-3. Dr. Jean-Baptiste consulted/following: Has analyzed bone scan and MRI and determine there is no source of infection, etiology of patient's pain is unclear at this time. Low suspicion for infection. No surgical intervention indicated at this time. Plan; case management consult for possible placement to SNF, vancomycin and Zosyn discontinued, continue current pain regimen. 2) NIHARIKA Creatinine currently 1.16, down from admission. Plan; continue IV fluids, trend BMP. 3) Hyponatremia Resolved. 4) Hypertension Continue home medications 5) Hypothyroidism Continue home levothyroxine 6) GERD Continue Prevacid DVT prophylaxis - Lovenox Patient seen by Jonah Jesus PA-C, under the supervision of Dr. Canas. Documented by User: Dr. Guerrero Canas MD 01/05/21 11:51 Objective Data Lab / Micro Data Result Diagrams: 01/05/21 05:25 01/05/21 05:25 Charges/Coding Addendum Addendum: Dr. Canas: I personally reviewed the chart and examined the patient, and agree with the above findings. 85-year-old female who recently underwent surgery for spinal stenosis. She had a complete decompression of L4-L5 and L2-L3. Dr. Jean-Baptiste feels that she likely overworked on discharge and has a muscle spasm. On evaluation of the MRI there did not appear to be major disease, Dr. Jean-Baptiste did not feel that this explained her pain, the fluid collection he said is a seroma she did not have any point tenderness to her spine. Will evaluate her for possible SNF placement. Visit Charges Inpatient E&M: 12890 Subs Hosp L2
--- NOTE | 2021-01-04 18:33 | CASEMGMT ---
Social Work Note SW received referral that physician is wanting Rehab Unit at discharge for pt. JONE placed a call to Margarita with [facility], pt's insurance ([employer]) will not approve Rehab Unit. Pt put on TCU list. PT/OT attempted to work with pt earlier but was too painful. PT/OT did see pt again, but it was later in the day and nothing could be started with SNF/insurance at that time. JONE updated that pt's' daughter Steffany is present in room and requesting to speak to this worker. SW in to speak with pt and Steffany. Steffany asked about [facility]. SW informed pt and Steffany that pt's insurance will not approve [facility], may approve SNF. SW spoke with pt and Steffany about pt's insurance and SNF. Patient was provided a list of SNF providers including quality and resource use data and consistent with the patient?s preferred geographic region, medical needs, and insurance network. Pt's preferred provider is [facility]. Pt states she doesn't want to go to an outside SNF. JONE updated pt and Steffany that pt is on TCU list and this worker will need to follow up with TCU Thursday to determine bed availability. SW did update pt and Steffany that if pt is up walking well and pain is managed, there will be a chance pt may even get denied SNF. SW explained that at this time of day, nothing can get started with SNF and insurance. SW spoke with Steffany and pt about other options in the event pt feels better and can go home including HHC and outpatient therapy. Pt and Steffany state plan will be TCU on Thursday unless pt feels she is able to go home and then the plan will be home with outpatient therapy. Pt states if she is able to return home, she would prefer home with outpatient therapy. SW spent much time with pt and Steffany discussing insurance, coverage at SNF, Medicaid, etc. SW informed pt that if she feels at anytime over the weekend she is able to return home and wants to return home to let staff know otherwise pt will be at [facility] until Thursday when process can be started with SNF. SW to continue to follow. RN updated. Plan: TBD. If pt is still at [facility] Thursday, this worker will follow up with TCU and pt on Thursday. JONE emailed RN LACHO to place outpatient therapy script on pt's chart in the event pt wants to return home before Thursday. Barbara Diehl HAT COPYIST, MANUFACTURING AUTOMATION ENGINEER
[2021-01-04] MEDS: Senna/Docusate Sodium 1 Tablet PO (21:05)
[2021-01-04] MEDS: Polyethylene Glycol 3350 17 GM PACKET PO (21:05)
[2021-01-05] VITALS (10 sets, daily range): BP systolic 139–174; BP diastolic 60–87; PULSE 63–80; RESP 16–18; TEMP 36.4–37; O2SAT 95–99
[2021-01-05] MEDS: Acetaminophen 500 MG Tablet 1000 MG PO ×3 (02:16→21:30)
[2021-01-05] MEDS: Levothyroxine 50 MCG Tablet PO (05:12)
[2021-01-05] MEDS: oxyCODONE 5 MG Tablet PO (06:30)
[2021-01-05 06:34] LABS: Absolute Lymphocyte Count 1.28 X10^3/uL (0.83-4.51); Absolute Neutrophil Count 6.3 X10^3/uL (2.0-7.7); Basophil# 0.02 X10^3/uL; Basophil% 0.2 % (0-1); Eosinophil# 0.22 X10^3/uL; Eosinophils% 2.6 % (0-5); Hematocrit 36.6 % (37-47); Hemoglobin 11.6 g/dL (12.0-15.0); Lymphocyte # 1.28 X10^3/ul (0.83-4.51); Lymphocyte % 14.9 % (19-41); Mean Corp Hgb Conc 31.7 g/dL (32-36); Mean Corpuscular Hgb 27.8 pg (27.0-32.0); Mean Corpuscular Volume 87.8 fL (81-99); Monocyte# 0.71 X10^3/uL; Monocyte% 8.3 % (0-10); NRBC Flagged by Analyzer 0 % (0-5); Neutrophil % 73.4 % (47-70); Platelet Count 396 K/mm3 (150-450); RBC Distribution Width CV 13.2 % (11.6-14.6); RBC Distribution Width SD 42.6 fl (35.1-43.9); Red Blood Count 4.17 M/mm3 (4.2-5.4); White Blood Count 8.6 K/mm3 (4.4-11.0)
[2021-01-05 07:14] LABS: Anion Gap 5 (5-15); BUN 16 mg/dL (7-18); Calcium,Total 8.6 mg/dL (8.5-10.1); Chloride 108 mmol/L (98-107); Creatinine, Serum 1.07 mg/dL (0.55-1.02); EST Glomerular Filtration Rate 52 mL/min (>60); Est Glom Filt Rate - Afr Amer 63 mL/min (>60); Glucose 96 mg/dL (74-106); Potassium 4.1 mmol/L (3.5-5.1); Sodium Level 140 mmol/L (136-145)
[2021-01-05] MEDS: Losartan Potassium 50 MG Tablet PO (07:50)
[2021-01-05] MEDS: Senna/Docusate Sodium 1 Tablet PO (07:50)
[2021-01-05] MEDS: Vitamin B Comp W-C Capsule 1 CAP PO (07:51)
[2021-01-05] MEDS: Cholecalciferol (VIT D3) 25 MCG TABLET (1,000 UNITS) 50 MCG PO (07:51)
[2021-01-05] MEDS: Polyethylene Glycol 3350 17 GM PACKET PO (07:51)
[2021-01-05] MEDS: 0.9% Normal Saline 1,000 ML 70 ML IV (12:17)
--- NOTE | 2021-01-05 12:57 | PN.HOSP_ITS ---
Documented by User: Jonah GLASGOW 01/05/21 13:02 Subjective Subjective Patient is an 85-year-old female comfortably resting in bed, alert and orient x3. Patient reports mild pain on movement, however endorses no other change in symptoms from yesterday. Denies chest pain, shortness of breath, palpitations, hemoptysis, sputum production, fever, chills, N/V/D. Objective Data Objective Data Vital Signs: Vital Signs Temp Pulse Resp BP Pulse Ox 97.6 F L 76 16 174/84 H 95 01/05/21 07:46 01/05/21 08:35 01/05/21 07:46 01/05/21 07:46 01/05/21 09:01 Oxygen Delivery Method Room Air Weight: 153 lb 14.122 oz Body Mass Index (BMI) 26.4 Intake & Output: Intake and Output for Last 24 Hours 01/03/21 01/04/21 01/05/21 23:59 23:59 23:59 Intake Total 325 / 825 3737.67 / 3737.67 994 / 994 Output Total 900 / 1550 2975 / 2975 2700 / 2700 Balance -575 / -725 762.67 / 762.67 -1706 / -1706 Lab / Micro Data Result Diagrams: 01/05/21 05:25 01/05/21 05:25 Labs: Laboratory Results - last 24 hr 01/05/21 05:25: WBC 8.6, RBC 4.17 L, Hgb 11.6 L, Hct 36.6 L, MCV 87.8, MCH 27.8, MCHC 31.7 L, RDW Std Deviation 42.6, RDW Coeff of Peter 13.2, Plt Count 396, MPV 10.0, Immature Gran % (Auto) 0.600, Neut % (Auto) 73.4 H, Lymph % (Auto) 14.9 L, Carolina % (Auto) 8.3, Eos % (Auto) 2.6, Baso % (Auto) 0.2, Absolute Neuts (auto) 6.3, Absolute Lymphs (auto) 1.28, Nucleated RBC % 0 01/05/21 05:25: Sodium 140, Potassium 4.1, Chloride 108 H, Carbon Dioxide 27.0, Anion Gap 5, BUN 16, Creatinine 1.07 H, Estim Creat Clear Calc 33.80, Est GFR (MDRD) Af Amer 63, Est GFR (MDRD) Non-Af 52 L, BUN/Creatinine Ratio 15.0, Glu cose 96, Calcium 8.6 Physical Exam Const alert, oriented x3 and no apparent distress HEENT head/scalp atraumatic and moist oral mucous membranes Head and Scalp: normocephalic Eyes EOMs intact bilaterally and conjunctivae normal Neck no lymphadenopathy, supple and no JVD Resp normal respiratory effort, no retractions, no use of accessory muscles and clear to auscultation bilaterally Cardio regular rate, regular rhythm, no murmurs and no JVD GI normal to inspection, nondistended, normoactive bowel sounds, soft to palpation and non-tender Extremity normal to inspection, full ROM and no clubbing, cyanosis or edema Skin no rashes or lesions noted, no wounds and skin turgor normal Neuro CN's II-XII intact bilaterally Psych affect normal Assessment & Plan Assessment/Plan (1) NIHARIKA (acute kidney injury): (2) Hyponatremia: (3) Spinal stenosis of lumbar region at multiple levels: (4) Lower back pain: PLAN: Day 3: See subjective. Discharge planning: [facility]. 1) intractable lower back pain status post lumbar spinal decompression at L4-5 and L2-3. Dr. Jean-Baptiste consulted/following: Has analyzed bone scan and MRI and determine there is no source of infection, etiology of patient's pain is unclear at this time. Low suspicion for infection. No surgical intervention indicated at this time. Plan; continue pain regimen of Tylenol and oxycodone, discharged back to [facility] as above. 2) NIHARIKA Creatinine currently 1.07, down from admission. Plan; continue IV fluids, trend BMP. 3) Hyponatremia Resolved. 4) Hypertension Continue home medications 5) Hypothyroidism Continue home levothyroxine 6) GERD Continue Prevacid DVT prophylaxis - Lovenox Patient seen by Jonah Jesus PA-C, under the supervision of Dr. Canas. Documented by User: Dr. Guerrero Canas MD 01/05/21 13:47 Objective Data Lab / Micro Data Result Diagrams: 01/05/21 05:25 01/05/21 05:25 Charges/Coding Addendum Addendum: Dr. Canas: I personally reviewed the chart and examined the patient, and agree with the above findings. 85-year-old female who recently underwent surgery for spinal stenosis. She had a complete decompression of L4-L5 and L2-L3. Dr. Jean-Baptiste feels that she likely overworked on discharge and has a muscle spasm. On evaluation of the MRI there did not appear to be major disease, Dr. Jean-Baptiste did not feel that this explained her pain, the fluid collection he said is a seroma she did not have any point tenderness to her spine. Will evaluate her for possible SNF placement. 01/05/2021: She is doing much the same as she did yesterday. Still with some pain in her low back and in her buttock on the right. It is mostly paraspinal in the muscle itself she does have occasional radiation of the pain down her leg but in discussion with Dr. Jean-Baptiste, I did not feel that this was anything from surgery. We will continue with PT OT and plan to get [facility] for continued therapy. Visit Charges Inpatient E&M: 37273 Subs Hosp L2
[2021-01-05] MEDS: Mag Hydrox/Al Hydrox/Simeth 30 ML UDC PO (13:59)
[2021-01-05] MEDS: 0.9% Saline Lock 10 ML Syringe IV (21:17)
[2021-01-06] VITALS (10 sets, daily range): BP systolic 119–154; BP diastolic 61–71; PULSE 59–80; RESP 16–18; TEMP 36.4–36.8; O2SAT 96–100
[2021-01-06] MEDS: oxyCODONE 5 MG Tablet PO (02:34)
[2021-01-06] MEDS: Levothyroxine 50 MCG Tablet PO (06:26)
[2021-01-06] MEDS: Acetaminophen 500 MG Tablet 1000 MG PO ×2 (06:27→15:14)
[2021-01-06] MEDS: Cholecalciferol (VIT D3) 25 MCG TABLET (1,000 UNITS) 50 MCG PO (07:48)
[2021-01-06] MEDS: Losartan Potassium 50 MG Tablet PO (07:49)
[2021-01-06] MEDS: Vitamin B Comp W-C Capsule 1 CAP PO (07:49)
[2021-01-06 08:41] LABS: Anion Gap 4 (5-15); BUN 16 mg/dL (7-18); BUN/Creat Ratio 14.7 RATIO (10-20); Calcium,Total 8.9 mg/dL (8.5-10.1); Chloride 104 mmol/L (98-107); Creatinine, Serum 1.09 mg/dL (0.55-1.02); EST Glomerular Filtration Rate 51 mL/min (>60); Est Glom Filt Rate - Afr Amer 61 mL/min (>60); Estimated Creatinine Clearance 33.18 ml/min; Glucose 108 mg/dL (74-106); Magnesium 2.2 mg/dL (1.6-2.6); Potassium 3.7 mmol/L (3.5-5.1); Sodium Level 136 mmol/L (136-145)
[2021-01-06 08:56] LABS: Alkaline Phosphatase 64 U/L (45-117)
[2021-01-06] MEDS: diazePAM 2 MG Tablet PO (09:49)
--- NOTE | 2021-01-06 11:51 | PN.HOSP_ITS ---
Documented by User: Jonah GLASGOW 01/06/21 11:58 Subjective Subjective Patient is an 85-year-old female resting in bed, alert and orient x3. Patient is experiencing significant pain upon my examination related to her lower back radiating down her legs. Denies any other associated symptoms. Objective Data Objective Data Vital Signs: Vital Signs Temp Pulse Resp BP Pulse Ox 97.5 F L 68 18 125/65 H 100 01/06/21 07:43 01/06/21 07:43 01/06/21 07:43 01/06/21 07:43 01/06/21 07:43 Oxygen Delivery Method Room Air Weight: 153 lb 14.122 oz Body Mass Index (BMI) 26.4 Intake & Output: Intake and Output for Last 24 Hours 01/04/21 01/05/21 01/06/21 23:59 23:59 23:59 Intake Total 3737.67 / 3737.67 1093.63 / 1693.63 900 / 900 Output Total 2975 / 2975 3860 / 3860 Balance 762.67 / 762.67 -2766.37 / -2166.37 900 / 900 Lab / Micro Data Result Diagrams: 01/05/21 05:25 01/06/21 08:10 Labs: Laboratory Results - last 24 hr 01/05/21 15:38: Vancomycin Trough 4.0 L 01/06/21 08:10: Sodium 136, Potassium 3.7, Chloride 104, Carbon Dioxide 28.0, Anion Gap 4 L, BUN 16, Creatinine 1.09 H, Estim Creat Clear Calc 33.18, Est GFR (MDRD) Af Amer 61, Est GFR (MDRD) Non-Af 51 L, BUN/Creatinine Ratio 14.7, Gluc ose 108 H, Calcium 8.9, Magnesium 2.2 01/06/21 08:10: Alkaline Phosphatase 64 Physical Exam Const alert, oriented x3 and no apparent distress HEENT head/scalp atraumatic and moist oral mucous membranes Head and Scalp: normocephalic Eyes EOMs intact bilaterally and conjunctivae normal Neck no lymphadenopathy, supple and no JVD Resp normal respiratory effort, no retractions and no use of accessory muscles Cardio regular rate, regular rhythm, no murmurs and no JVD GI normal to inspection, nondistended, normoactive bowel sounds and soft to palpation Extremity normal to inspection, full ROM and no clubbing, cyanosis or edema Skin no rashes or lesions noted, no wounds and skin turgor normal Neuro CN's II-XII intact bilaterally Psych affect normal Assessment & Plan Assessment/Plan (1) Lower back pain: (2) Hyponatremia: (3) NIHARIKA (acute kidney injury): (4) Spinal stenosis of lumbar region at multiple levels: (5) Low back pain: (6) Hypothyroidism: PLAN: Day 4: See subjective. Discharge planning: Plan is to discharge to TCU, CM/SW following. 1) intractable lower back pain status post lumbar spinal decompression at L4-5 and L2-3. Dr. Jean-Baptiste consulted/following: Has analyzed bone scan and MRI and determine there is no source of infection, etiology of patient's pain is unclear at this time. Low suspicion for infection. No surgical intervention indicated at this time. Patient reports ongoing back pain on my examination today, patients reports pain feels like muscle spams. Plan; continue pain regimen of Tylenol and oxycodone, Valium ordered for muscle spasms, discharge plan as above. 2) NIHARIKA Stable, currently 1.09. Plan; continue to monitor BMP. 3) Hyponatremia Resolved. 4) Hypertension Continue home medications 5) Hypothyroidism Continue home levothyroxine 6) GERD Continue Prevacid DVT prophylaxis - Lovenox Patient seen by Jonah Jesus PA-C, under the supervision of Dr. Canas. Documented by User: Dr. Guerrero Canas MD 01/06/21 12:58 Objective Data Lab / Micro Data Result Diagrams: 01/05/21 05:25 01/06/21 08:10 Charges/Coding Addendum Addendum: Dr. Canas: I personally reviewed the chart and examined the patient, and agree with the above findings. 85-year-old female who recently underwent surgery for spinal stenosis. She had a complete decompression of L4-L5 and L2-L3. Dr. Jean-Baptiste feels that she likely overworked on discharge and has a muscle spasm. On evaluation of the MRI there did not appear to be major disease, Dr. Jean-Baptiste did not feel that this explained her pain, the fluid collection he said is a seroma she did not have any point tenderness to her spine. Will evaluate her for possible SNF placement. 01/05/2021: She is doing much the same as she did yesterday. Still with some pain in her low back and in her buttock on the right. It is mostly paraspinal in the muscle itself she does have occasional radiation of the pain down her leg but in discussion with Dr. Jean-Baptiste, I did not feel that this was anything from surgery. We will continue with PT OT and plan to get [facility] for continued therapy. 01/06/2021: Has intermittent pain, since she is having a muscle spasm, will try some Valium and can place her on as needed Toradol since she does not like taking the oxycodone. Continue with PT/OT and will plan for discharge to TCU once bed is available and she has insurance approval. Visit Charges Inpatient E&M: 32792 Subs Hosp L2
[2021-01-06] MEDS: Ketorolac 15 MG/ML Vial IV (13:58)
[2021-01-06] MEDS: 0.9% Saline Lock 10 ML Syringe IV (13:59)
[2021-01-06 14:23] LABS: Phosphorus 2.3 mg/dL (2.5-4.9)
[2021-01-07] VITALS (8 sets, daily range): BP systolic 152–169; BP diastolic 80–90; PULSE 64–69; RESP 16–18; TEMP 36.4–36.5; O2SAT 97–100
[2021-01-07] MEDS: diazePAM 2 MG Tablet PO (00:29)
[2021-01-07] MEDS: 0.9% Saline Lock 10 ML Syringe IV ×3 (00:29→16:00)
[2021-01-07] MEDS: Ketorolac 15 MG/ML Vial IV ×3 (00:29→16:00)
[2021-01-07 05:42] LABS: Absolute Lymphocyte Count 1.71 X10^3/uL (0.83-4.51); Absolute Neutrophil Count 6.3 X10^3/uL (2.0-7.7); Basophil# 0.05 X10^3/uL; Basophil% 0.6 % (0-1); Eosinophil# 0.23 X10^3/uL; Eosinophils% 2.6 % (0-5); Hematocrit 37.7 % (37-47); Hemoglobin 12.4 g/dL (12.0-15.0); Lymphocyte # 1.71 X10^3/ul (0.83-4.51); Lymphocyte % 19.1 % (19-41); Mean Corp Hgb Conc 32.9 g/dL (32-36); Mean Corpuscular Hgb 27.9 pg (27.0-32.0); Mean Corpuscular Volume 84.7 fL (81-99); Mean Platelet Vol. 9.9 fl (6.2-12.0); Monocyte# 0.59 X10^3/uL; Monocyte% 6.6 % (0-10); NRBC Flagged by Analyzer 0 % (0-5); Neutrophil # 6.34 X10^3/uL (2.7-7.7); Neutrophil % 70.7 % (47-70); Platelet Count 398 K/mm3 (150-450); RBC Distribution Width CV 13.2 % (11.6-14.6); RBC Distribution Width SD 40.7 fl (35.1-43.9); Red Blood Count 4.45 M/mm3 (4.2-5.4)
[2021-01-07 06:00] LABS: Anion Gap 5 (5-15); BUN 26 mg/dL (7-18); BUN/Creat Ratio 23.2 RATIO (10-20); Calcium,Total 8.9 mg/dL (8.5-10.1); Chloride 105 mmol/L (98-107); Creatinine, Serum 1.12 mg/dL (0.55-1.02); EST Glomerular Filtration Rate 49 mL/min (>60); Est Glom Filt Rate - Afr Amer 60 mL/min (>60); Estimated Creatinine Clearance 32.29 ml/min; Glucose 100 mg/dL (74-106); Potassium 3.7 mmol/L (3.5-5.1); Sodium Level 137 mmol/L (136-145)
[2021-01-07] MEDS: Levothyroxine 50 MCG Tablet PO (06:14)
[2021-01-07] MEDS: Acetaminophen 500 MG Tablet 1000 MG PO (06:16)
[2021-01-07] MEDS: Losartan Potassium 50 MG Tablet PO (08:18)
[2021-01-07] MEDS: Cholecalciferol (VIT D3) 25 MCG TABLET (1,000 UNITS) 50 MCG PO (08:18)
[2021-01-07] MEDS: Vitamin B Comp W-C Capsule 1 CAP PO (08:18)
--- NOTE | 2021-01-07 10:32 | CASEMGMT ---
Addendum entered by Leanna Diaz 01/07/21 15:35: Pt dtr wishes that pt stay tonight on oral pain meds then dc to home tomorrow if all is well. She states she is afraid that pt will not be well in the morning and they will be back to square one. She also wanted this RN CM to notify doctor that her fingers and knuckles were turning purple and she has a history of Raynaud's. Cortext to Dr. Canas. Addendum entered by Leanna Diaz 01/07/21 15:26: SUKI MONK in to room with JONE Small to discuss options for HHC at home as pt doing well with therapy. Pt and dtr agreeable but state was just in and states pt may not need therapy. Discussed with Dr. Canas who spoke with Dr. Jean-Baptiste, no therapy for home. Updated pt and dtr. Original Note: SUKI MONK in to pt room to discuss dc plan. Pt states she did so well with therapy yesterday because she had toradol. She states she is in significant pain now and has an ice pack on her hip. Pt is sitting up in chair. Pt states she still would like to pursue TCU. She is aware that insurance likely will decline as she has done well with therapy. She states her dtr will be in today after noon. Made JONE Small aware of pt request.
--- NOTE | 2021-01-07 10:56 | CASEMGMT ---
Social Work Note SW reviewed PT/OT from weekend, pt walked 100ft contact guard, will likely get denied SNF. RN CM in to speak with pt. Pt still wants to try TCU. Pt states she will not do as well with PT/OT today. JONE placed a call to Maryjo with TCU and updated her. SW asked PT/OT to work with pt then let this worker know how pt does. Plan: TBD, pt still wanting to try TCU however pt will likely get denied TCU/SNF Barbara Diehl OPERATIONS CHIEF, SPORTS PHYSIOLOGIST
--- NOTE | 2021-01-07 12:36 | PCM.PN.HOSP ---
Documented by User: Jonah GLASGOW 01/07/21 12:41 Subjective Subjective Patient is an 85-year-old female comfortably resting in bed, alert and orient x3. Patient reports that her lower back and leg pain is currently controlled, reports resolution with Toradol. Objective Data Objective Data Vital Signs: Vital Signs Temp Pulse Resp BP Pulse Ox 97.6 F L 68 18 169/90 H 100 01/07/21 08:00 01/07/21 08:48 01/07/21 08:00 01/07/21 08:00 01/07/21 08:00 Oxygen Delivery Method Room Air Weight: 153 lb 14.122 oz Body Mass Index (BMI) 26.4 Intake & Output: Intake and Output for Last 24 Hours 01/05/21 01/06/21 01/07/21 23:59 23:59 23:59 Intake Total 1093.63 / 1693.63 900 / 1300 700 / 700 Output Total 3860 / 3860 Balance -2766.37 / -2166.37 900 / 1300 700 / 700 Lab / Micro Data Result Diagrams: 01/07/21 05:07 01/07/21 05:07 Labs: Laboratory Results - last 24 hr 01/06/21 08:10: Phosphorus 2.3 L 01/07/21 05:07: WBC 9.0, RBC 4.45, Hgb 12.4, Hct 37.7, MCV 84.7, MCH 27.9, MCHC 32.9, RDW Std Deviation 40.7, RDW Coeff of Peter 13.2, Plt Count 398, MPV 9.9, Immature Gran % (Auto) 0.400, Neut % (Auto) 70.7 H, Lymph % (Auto) 19.1, Turner % (Auto) 6.6, Eos % (Auto) 2.6, Baso % (Auto) 0.6, Absolute Neuts (auto) 6.3, Absolute Lymphs (auto) 1.71, Nucleated RBC % 0 01/07/21 05:07: Sodium 137, Potassium 3.7, Chloride 105, Carbon Dioxide 27.0, Anion Gap 5, BUN 26 H, Creatinine 1.12 H, Estim Creat Clear Calc 32.29, Est GFR (MDRD) Af Amer 60, Est GFR (MDRD) Non-Af 49 L, BUN/Creatinine Ratio 23.2 H, Glucose 100, Calcium 8.9 Physical Exam Const alert, oriented x3 and no apparent distress HEENT head/scalp atraumatic, moist oral mucous membranes and oropharynx normal Head and Scalp: normocephalic Eyes EOMs intact bilaterally and conjunctivae normal Neck no lymphadenopathy, supple and no JVD Resp normal respiratory effort, no retractions, no use of accessory muscles and clear to auscultation bilaterally Cardio regular rate, regular rhythm, no murmurs and no JVD GI normal to inspection, nondistended, normoactive bowel sounds, soft to palpation and non-tender Extremity normal to inspection, full ROM and no clubbing, cyanosis or edema Skin no rashes or lesions noted, no wounds and skin turgor normal Neuro CN's II-XII intact bilaterally Psych affect normal Assessment & Plan Assessment/Plan (1) Spinal stenosis of lumbar region at multiple levels: (2) Hypothyroidism: (3) Low back pain: PLAN: Day 5: See subjective. Discharge planning: Plan is to discharge to TCU, /SW following. 1) intractable lower back pain status post lumbar spinal decompression at L4-5 and L2-3. Dr. Jean-Baptiste consulted/following: Has analyzed bone scan and MRI and determine there is no source of infection, etiology of patient's pain is unclear at this time. Low suspicion for infection. No surgical intervention indicated at this time. Plan; continue pain regimen of Tylenol and oxycodone, Toradol and Valium ordered for muscle spams, discharge plan as above. 2) NIHARIKA Stable, currently 1.12. Plan; continue to monitor BMP. 3) Hyponatremia Resolved. 4) Hypertension Continue home medications 5) Hypothyroidism Continue home levothyroxine 6) GERD Continue Prevacid DVT prophylaxis - Lovenox Patient seen by Jonah Jesus PA-C, under the supervision of Dr. Canas. Documented by User: Dr. Guerrero Canas MD 01/07/21 17:12 Objective Data Lab / Micro Data Result Diagrams: 01/07/21 05:07 01/07/21 05:07
--- NOTE | 2021-01-07 13:30 | CASEMGMT ---
Addendum entered by Barbara Diehl 01/07/21 15:26: SW placed a call to [facility] with TCU and left message that pt will be returning home. Original Note: Social Work Note SW spoke with PT/OT and reviewed PT/OT notes. Pt walked 120ft stand by assist today, PT/OT recommending home with [facility]. SW and RN CM in to speak with pt and pt's daughter Steffany. SW updated pt and Steffany that since PT/OT is recommending home with [facility], pt will get denied SNF. Steffany states that Dr. Jean-Baptiste had mentioned to them that pt may not even need therapy at home, just pain management. Pt and Steffany agreeable to home, RN CM to confirm if pt will need PT/OT at home or not. Physician updated. Plan: Home Barbara Diehl TELEPATHIST, BILINGUAL LOAN PROCESSOR
--- NOTE | 2021-01-07 15:17 | PCM.DC ---
Discharge Instructions Diet Discharge Diet: No restrictions Activity Discharge Activity: Return to Normal Activity Weight Bearing Status: Weight bearing as tolerated Dressing / Incision Call your doctor if you observe: Fever of 101 or Higher, Numbness or Tingling, Shortness of breath, Dizziness, Chest pain, Increased palpitations (irregular heartbeat) and Calf discomfort Follow Up Care Please Follow Up With: Primary care provider When: Within the next two weeks. Test Results: Test results from this visit will be discussed in further detail at your follow-up appointment, if applicable. Discharge Plan Admission Admit Date/Time: 01/04/21 13:49 Primary Reason for Your Visit: Low back pain Attending Provider: Guerrero Canas Primary Care Provider: Sandy Giraldo NP Consulting Providers: Barak Jean-Baptiste Instructions Additional Instructions / Restrictions: Dr. Jean-Baptiste to presribe Toradol to patients pharmacy for pain management. Follow on appointment scheduled for 01/11/21 w/ Dr. Jean-Baptiste and possible referral to Dr. Hernandez for pain management. Discharge Orders/Prescriptions Prescriptions: Continued hydrocodone-acetaminophen 5-325 mg tablet 1 tab PO Q4H PRN (Reason: pain) 6 Days Qty: 40 RF: 0 tramadol 50 mg tablet 50 mg PO Q6H PRN (Reason: pain) 10 Days Qty: 40 RF: 0 lansoprazole [Prevacid] 15 MG capsule 15 mg PO BID PRN (Reason: Indigestion) RF: 0 vitamin B complex 1 EACH capsule 1 ea PO DAILY RF: 0 Fish Oil 1 EACH capsule 2 ea PO DAILY RF: 0 cholecalciferol (vitamin D3) [Vitamin D3] 2,000 UNIT tablet 2,000 unit PO DAILY RF: 0 levothyroxine 50 MCG tablet 50 mcg PO DAILY RF: 0 losartan 50 mg Tablet 50 mg PO DAILY RF: 0 acetaminophen [Tylenol Extra Strength] 500 mg Tablet 1,000 mg PO Q8H PRN (Reason: Pain) RF: 0 ketorolac 10 mg tablet 10 mg PO TID PRN (Reason: pain) 5 Days Qty: 15 RF: 0 Referrals / Follow Up: Barak Jean-Baptiste, [STAFF PHYSICIAN] - See Referral Note (Follow up with Dr. Jean-Baptiste on Thursday01/11/21) Sandy Giraldo NP, LIBRARY DIRECTOR-C [Primary Care Provider] - Within 2 Weeks Disposition Disposition (needs filled in before D/C Order can be placed): Home, Self Care
--- NOTE | 2021-01-07 16:48 | PCM.DC.SUM ---
Documented by User: Jonah GLASGOW 01/07/21 16:52 Providers Date of Admission: 01/04/21 Primary Care Physician: STACY Miller Consultations 01/03/21 17:11 Consult: Orthopedics Routine Consulting Provider: Barak Jean-Baptiste Reason for Consult: LBP with radiculopathy EMERGENT Consult: No MD Notified: Yes Date Notified: 01/03/21 Time Notified: 16:56 Method of Notification: Verbal Reason For Visit: BACK PAIN Diagnosis Discharge Diagnosis (1) Spinal stenosis of lumbar region at multiple levels: Status: Acute Code(s): M48.061 - Spinal stenosis, lumbar region without neurogenic claudication (2) Hypothyroidism: Status: Acute Code(s): E03.9 - Hypothyroidism, unspecified (3) Low back pain: Status: Acute Code(s): M54.5 - Low back pain Medications at Discharge Home Medications Fish Oil 2 ea PO DAILY 12/09/13 cholecalciferol (vitamin D3) [Vitamin D3] 2,000 unit PO DAILY 12/09/13 lansoprazole [Prevacid] 15 mg PO BID PRN 12/09/13 vitamin B complex 1 ea PO DAILY 12/09/13 levothyroxine 50 mcg PO DAILY 02/24/17 losartan 50 mg PO DAILY 12/05/20 tramadol 50 mg tablet 50 mg PO Q6H PRN 10 Days #40 tab 12/26/20 acetaminophen [Tylenol Extra Strength] 1,000 mg PO Q8H PRN 01/03/21 hydrocodone-acetaminophen 5-325mg 5mg-325mg 1 tab PO Q4H PRN 6 Days #40 tab 01/03/21 ketorolac 10 mg tablet 10 mg PO TID PRN 5 Days #15 tab 01/07/21 Hospital Course Summary of Care Provided Minutes Spent on Discharge: 35 Hospital Course: Disposition: Patient to be discharged home and have appropriate follow-up with Dr. Jean-Baptiste. 1) intractable lower back pain status post lumbar spinal decompression at L4-5 and L2-3. Dr. Jean-Baptiste consulted/following: Has analyzed bone scan and MRI and determine there is no source of infection, etiology of patient's pain is unclear at this time. Low suspicion for infection. No surgical intervention indicated at this time. Plan; Toradol to be prescribed on discharge by Dr. Jean-Baptiste, follow-up with Dr. Jean-Baptiste in his office on 01/11, possible referral to Dr. Hernandez for pain management. 2) NIHARIKA Stable, currently 1.12. Plan; continue to monitor BMP. 3) Hyponatremia Resolved. 4) Hypertension Continue home medications 5) Hypothyroidism Continue home levothyroxine 6) GERD Continue Prevacid Patient seen by Jonah Jesus PA-C, under the supervision of Dr. Canas. Physical Exam Narrative Patient is an 85-year-old female comfortably resting in bed, alert and orient x3. Patient reports that her lower back and leg pain is currently controlled, reports resolution with Toradol. Const alert, oriented x3 and no apparent distress HEENT normocephalic, head/scalp atraumatic and hearing grossly normal bilaterally Eyes EOMs intact bilaterally and conjunctivae normal Neck no lymphadenopathy, supple and no JVD Resp normal respiratory effort, no retractions, no use of accessory muscles and clear to auscultation bilaterally Cardio regular rate, regular rhythm, no murmurs and no JVD GI normal to inspection, nondistended, normoactive bowel sounds, soft to palpation and non-tender Extremity normal to inspection, full ROM and no clubbing, cyanosis or edema Skin no rashes or lesions noted, no wounds and skin turgor normal Neuro CN's II-XII intact bilaterally Psych affect normal Weight / BMI Weight Weight: 153 lb 14.122 oz Body Mass Index (BMI) 26.4 ABG / Lab / Microbiology Data Result Diagrams: 01/07/21 05:07 01/07/21 05:07 Laboratory: Laboratory Results - last 24 hr 01/07/21 05:07: WBC 9.0, RBC 4.45, Hgb 12.4, Hct 37.7, MCV 84.7, MCH 27.9, MCHC 32.9, RDW Std Deviation 40.7, RDW Coeff of Peter 13.2, Plt Count 398, MPV 9.9, Immature Gran % (Auto) 0.400, Neut % (Auto) 70.7 H, Lymph % (Auto) 19.1, Barren % (Auto) 6.6, Eos % (Auto) 2.6, Baso % (Auto) 0.6, Absolute Neuts (auto) 6.3, Absolute Lymphs (auto) 1.71, Nucleated RBC % 0 01/07/21 05:07: Sodium 137, Potassium 3.7, Chloride 105, Carbon Dioxide 27.0, Anion Gap 5, BUN 26 H, Creatinine 1.12 H, Estim Creat Clear Calc 32.29, Est GFR (MDRD) Af Amer 60, Est GFR (MDRD) Non-Af 49 L, BUN/Creatinine Ratio 23.2 H, Glucose 100, Calcium 8.9 D/C Instructions Discharge Diet: No restrictions Weight Bearing Status: Weight bearing as tolerated Call your doctor if you observe: Fever of 101 or Higher, Numbness or Tingling, Shortness of breath, Dizziness, Chest pain, Increased palpitations (irregular heartbeat) and Calf discomfort Please Follow Up With: Primary care provider When: Within the next two weeks. Meaningful Use Info Meaningful Use Diagnoses (Choose all that apply): None applicable Discharge Plan Admission Admit Date/Time: 01/04/21 13:49 Primary Reason for Your Visit: Low back pain Attending Provider: Guerrero Canas Primary Care Provider: Sandy Giraldo NP Consulting Providers: Barak Jean-Baptiste Instructions Additional Instructions / Restrictions: Dr. Jean-Baptiste to presribe Toradol to patients pharmacy for pain management. Follow on appointment scheduled for 01/11/21 w/ Dr. Jean-Baptiste and possible referral to Dr. Hernandez for pain management. Discharge Orders/Prescriptions Prescriptions: Continued hydrocodone-acetaminophen 5-325 mg tablet 1 tab PO Q4H PRN (Reason: pain) 6 Days Qty: 40 RF: 0 tramadol 50 mg tablet 50 mg PO Q6H PRN (Reason: pain) 10 Days Qty: 40 RF: 0 lansoprazole [Prevacid] 15 MG capsule 15 mg PO BID PRN (Reason: Indigestion) RF: 0 vitamin B complex 1 EACH capsule 1 ea PO DAILY RF: 0 Fish Oil 1 EACH capsule 2 ea PO DAILY RF: 0 cholecalciferol (vitamin D3) [Vitamin D3] 2,000 UNIT tablet 2,000 unit PO DAILY RF: 0 levothyroxine 50 MCG tablet 50 mcg PO DAILY RF: 0 losartan 50 mg Tablet 50 mg PO DAILY RF: 0 acetaminophen [Tylenol Extra Strength] 500 mg Tablet 1,000 mg PO Q8H PRN (Reason: Pain) RF: 0 ketorolac 10 mg tablet 10 mg PO TID PRN (Reason: pain) 5 Days Qty: 15 RF: 0 Referrals / Follow Up: Barak Jean-Baptiste DO [STAFF PHYSICIAN] - See Referral Note (Follow up with Dr. Jean-Baptiste on Thursday01/11/21) Sandy Giraldo ANSWERING SERVICE AGENT, ANSWERING SERVICE AGENT-C [Primary Care Provider] - Within 2 Weeks Disposition Disposition (needs filled in before D/C Order can be placed): Home, Self Care Documented by User: Dr. Guerrero Canas MD 01/07/21 17:14 Providers Date of Admission: 01/04/21 Reason For Visit: BACK PAIN Medications at Discharge Home Medications Fish Oil 2 ea PO DAILY 12/09/13 cholecalciferol (vitamin D3) [Vitamin D3] 2,000 unit PO DAILY 12/09/13 lansoprazole [Prevacid] 15 mg PO BID PRN 12/09/13 vitamin B complex 1 ea PO DAILY 12/09/13 levothyroxine 50 mcg PO DAILY 02/24/17 losartan 50 mg PO DAILY 12/05/20 tramadol 50 mg tablet 50 mg PO Q6H PRN 10 Days #40 tab 12/26/20 acetaminophen [Tylenol Extra Strength] 1,000 mg PO Q8H PRN 01/03/21 hydrocodone-acetaminophen 5-325mg 5mg-325mg 1 tab PO Q4H PRN 6 Days #40 tab 01/03/21 ketorolac 10 mg tablet 10 mg PO TID PRN 5 Days #15 tab 01/07/21 ABG / Lab / Microbiology Data Result Diagrams: 01/07/21 05:07 01/07/21 05:07 Discharge Plan Admission Admit Date/Time: 01/04/21 13:49 Primary Reason for Your Visit: Low back pain Attending Provider: Guerrero Canas Primary Care Provider: Sandy Giraldo NP Consulting Providers: Barak Jean-Baptiste Instructions Additional Instructions / Restrictions: Dr. Jean-Baptiste to presribe Toradol to patients pharmacy for pain management. Follow on appointment scheduled for 01/11/21 w/ Dr. Jean-Baptiste and possible referral to Dr. Basali for pain management. Discharge Orders/Prescriptions Prescriptions: Continued hydrocodone-acetaminophen 5-325 mg tablet 1 tab PO Q4H PRN (Reason: pain) 6 Days Qty: 40 RF: 0 tramadol 50 mg tablet 50 mg PO Q6H PRN (Reason: pain) 10 Days Qty: 40 RF: 0 lansoprazole [Prevacid] 15 MG capsule 15 mg PO BID PRN (Reason: Indigestion) RF: 0 vitamin B complex 1 EACH capsule 1 ea PO DAILY RF: 0 Fish Oil 1 EACH capsule 2 ea PO DAILY RF: 0 cholecalciferol (vitamin D3) [Vitamin D3] 2,000 UNIT tablet 2,000 unit PO DAILY RF: 0 levothyroxine 50 MCG tablet 50 mcg PO DAILY RF: 0 losartan 50 mg Tablet 50 mg PO DAILY RF: 0 acetaminophen [Tylenol Extra Strength] 500 mg Tablet 1,000 mg PO Q8H PRN (Reason: Pain) RF: 0 ketorolac 10 mg tablet 10 mg PO TID PRN (Reason: pain) 5 Days Qty: 15 RF: 0 Referrals / Follow Up: Barak Jean-Baptiste DO [STAFF PHYSICIAN] - See Referral Note (Follow up with Dr. Jean-Baptiste on Thursday01/11/21) Sandy Giraldo ANSWERING SERVICE AGENT, ANSWERING SERVICE AGENT-C [Primary Care Provider] - Within 2 Weeks Disposition Disposition (needs filled in before D/C Order can be placed): Home, Self Care Charges/Coding Addendum Addendum: Dr. Canas: I personally reviewed the chart and examined the patient, and agree with the above findings. 85-year-old female who recently underwent surgery for spinal stenosis. She had a complete decompression of L4-L5 and L2-L3. Dr. Jean-Baptiste feels that she likely overworked on discharge and has a muscle spasm. On evaluation of the MRI there did not appear to be major disease, Dr. Jean-Baptiste did not feel that this explained her pain, the fluid collection he said is a seroma she did not have any point tenderness to her spine. Will evaluate her for possible SNF placement. 01/05/2021: She is doing much the same as she did yesterday. Still with some pain in her low back and in her buttock on the right. It is mostly paraspinal in the muscle itself she does have occasional radiation of the pain down her leg but in discussion with Dr. Jean-Baptiste, I did not feel that this was anything from surgery. We will continue with PT OT and plan to [facility]. 01/06/2021: Has intermittent pain, since she is having a muscle spasm, will try some Valium and can place her on as needed Toradol since she does not like taking the oxycodone. Continue with PT/OT and will plan for discharge to TCU once bed is available and she has insurance approval. 01/07/2021: When her pain is controlled she is able to ambulate over 120 feet therefore she does not meet criteria for SNF placement, and she would rather go home if that were a possibility. I discussed the case with Dr. Jean-Baptiste and he did not feel that there is anything surgical for him to do as the foramen on the left is open on the L5 nerve root. She is to receive decent relief with IV Toradol therefore he said that he would write her this prescription for p.o. Toradol and he would be able to see her on Thursday of this week to be able to coordinate care with Dr. Hernandez from pain management. This was relayed to her and she expressed understanding of the risks and benefits of discharge and would like to go home today. Visit Charges Inpatient E&M: [id number] Disch Hosp
--- NOTE | 2021-01-08 14:34 | CASEMGMT ---
SUKI MONK Discharge Follow Up Phone Call: SHIRLEY: Angelito Strata: 3 Call Date: 01/08/21 Discharge Date: 01/07/21 Time of Call: 1430 Duration:4 min Admitting Dx: intractable back pain SUKI MONK completed follow up phone call after recent hospitalization. Pt dtr Steffany answered and had her and the patient on speaker phone. Dtr states pt had difficulties this morning with pain again in her hip and leg and couldn't walk. Once pt had her medication and was up then she felt better. She did cone picker her toradol and is aware of her appt on Thursday with . Pt states her son called this morning but has not received a response yet. They are unsure if the patient should go to an [facility] or if they should hire private duty. Pt and dtr denied questions regarding dc instructions or medications at this time. Pt has no further questions or concerns at this time.
== END 2021-01-07 16:25 | disposition home or self-care (01) | DRG 552 ==
LOC: ED 13:28 → MS3 17:10
PROVIDERS: Physician Assistant; Admitting Provider Internal Medicine; Emergency Provider Emergency Medicine; PCP Registered Nurse; Visit Provider Family Medicine
DX: M62.830 Muscle spasm of back (principal); E87.1 Hypo-osmolality and hyponatremia; N17.9 Acute kidney failure, unspecified; L76.34 Postprocedural seroma of skin and subcutaneous tissue following other procedure; M48.061 Spinal stenosis, lumbar region without neurogenic claudication; M54.10 Radiculopathy, site unspecified; Y83.8 Other surgical procedures as the cause of abnormal reaction of the patient, or of later complication, without mention of misadventure at the time of the procedure; Y92.9 Unspecified place or not applicable; G89.29 Other chronic pain; M79.604 Pain in right leg; M79.89 Other specified soft tissue disorders; I12.9 Hypertensive chronic kidney disease with stage 1 through stage 4 chronic kidney disease, or unspecified chronic kidney disease; N18.9 Chronic kidney disease, unspecified; M06.9 Rheumatoid arthritis, unspecified; E03.9 Hypothyroidism, unspecified; R33.9 Retention of urine, unspecified; G47.30 Sleep apnea, unspecified; K21.9 Gastro-esophageal reflux disease without esophagitis; F32.9 Major depressive disorder, single episode, unspecified; F41.9 Anxiety disorder, unspecified; Z79.890 Hormone replacement therapy; Z79.899 Other long term (current) drug therapy; Z87.891 Personal history of nicotine dependence
CPT/HCPCS: 36415; 72158; 73552; 73590; 73630; 78306; 80048; 80053; 80202; 81001; 83735; 84075; 84100; 85025; 87641; 93971; 97116; 97162; 97166; 97530; 97535; 99251; 99285; A9503; A9575; J7030; J7040; J7050; A4216; G0463; J0696; J2405

== ENCOUNTER 2021-01-31 12:42 | Inpatient (IN) | payer MEDICARE, SELFPAY ==
[2021-01-31] VITALS (8 sets, daily range): BP systolic 113–158; BP diastolic 65–96; PULSE 73–88; RESP 12–24; TEMP 36.6–37; O2SAT 85–100; BMI 24.1; BMI 23.9
--- NOTE | 2021-01-31 12:55 | EKG12_ITS ---
Test Reason : CP Blood Pressure : / mmHG Vent. Rate : 083 BPM Atrial Rate : 083 BPM P-R Int : 144 ms QRS Dur : 078 ms QT Int : 362 ms P-R-T Axes : 051 007 081 degrees QTc Int : 425 ms Normal sinus rhythm Nonspecific ST and T wave abnormality Abnormal ECG Confirmed by SHARON JARA, WENDI ([id number]), makeup editor LEN BLUM ([id number]) on 02/04/2021 1:01:23 PM Referred By: AMERICA Confirmed By:WENDI HERRERA MD
--- NOTE | 2021-01-31 12:55 | CT_ITS ---
STUDY: CTA CHEST REASON FOR EXAM: Female, 85 years old. Left sided pleuritic pain, eval for PE RADIATION DOSAGE (If Supplied By Facility): CTDIvol = ( 3.97 ) mGy, DLP = ( 144.96 ) mGycm TECHNIQUE: The examination was performed with the intravenous administration of IV 100mL Isovue-370. Post-processing of the angiographic images was performed, with multiplanar reformation and 3D reconstruction. Individualized dose optimization techniques were used for this CT. COMPARISON: Comparison is made with prior study dated 06/02/2016. FINDINGS: Intraluminal filling defects are seen in branches of the distal portion of the left pulmonary artery extending into multiple branches of the left lower lobe pulmonary arterial branches in keeping with the pulmonary emboli. Normal thoracic aorta and visualized great vessels. There is no demonstrated aortic dissection. There are calcifications of the coronary arteries. Normal mediastinum. Normal hilar regions. Normal visualized trachea and bronchi. The lungs are hyper expanded, with flattening of the hemidiaphragms. Emphysematous changes more prominent in the upper lobes. Minimal left pleural effusion. There is evidence of a 2.9 cm x 2.6 cm infiltrate in the posterior medial segment of the left lower lobe. Stable scarring at the lung bases. Normal pleura. Normal chest wall structures. There are degenerative changes of thoracic spine. Old compression fracture of the L1 vertebrae. Normal visualized upper abdomen. CT/CTA Chest W/WO Contrast IMPRESSION: Pulmonary emboli in branches of the left lower lobe pulmonary artery. Infiltration and/or atelectasis in the posteromedial segment of the left lower lobe with minimal left pleural effusion. Electronically Signed: Gwyn Arboleda MD at 14:17 EDT , Service support ,
[2021-01-31 13:06] LABS: Absolute Lymphocyte Count 1.18 X10^3/uL (0.83-4.51); Absolute Neutrophil Count 8.1 X10^3/uL (2.0-7.7); Basophil# 0.03 X10^3/uL; Basophil% 0.3 % (0-1); Eosinophil# 0.22 X10^3/uL; Eosinophils% 2.1 % (0-5); Hematocrit 37.1 % (37-47); Hemoglobin 12.3 g/dL (12.0-15.0); Lymphocyte # 1.18 X10^3/ul (0.83-4.51); Lymphocyte % 11.4 % (19-41); Mean Corp Hgb Conc 33.2 g/dL (32-36); Mean Corpuscular Hgb 28.3 pg (27.0-32.0); Mean Corpuscular Volume 85.3 fL (81-99); Mean Platelet Vol. 9.5 fl (6.2-12.0); Monocyte# 0.79 X10^3/uL; Monocyte% 7.6 % (0-10); NRBC Flagged by Analyzer 0 % (0-5); Neutrophil # 8.11 X10^3/uL (2.7-7.7); Neutrophil % 78.1 % (47-70); Platelet Count 258 K/mm3 (150-450); RBC Distribution Width CV 14.7 % (11.6-14.6); RBC Distribution Width SD 45.4 fl (35.1-43.9); Red Blood Count 4.35 M/mm3 (4.2-5.4); White Blood Count 10.4 K/mm3 (4.4-11.0)
--- NOTE | 2021-01-31 13:07 | EX.ED.DYSGE1 ---
HPI History of Present Illness Chief Complaint: Chest Pain Informant: patient Narrative Narrative: Patient is an 85-year-old female who presents to the emergency department for pain under her left breast. Started around 9 AM this morning. She states it is worse whenever she takes a deep breath then. She denies any history of heart attacks, strokes or DVT/PE. She is not on any blood thinner medications. She denies significant shortness of breath associated with this. No cough, cold, congestion. No fevers or chills. She did have some calf pain a few days prior but this since resolved. She did have back surgery in December. She has not tried taking anything for her pain. Whenever she takes a deep breath in the pain can get to severe. She denies ever having this before. No back pain. No radiation. No abdominal pain or nausea/vomiting. [facility] Medical History Ambulates with cane Anxiety Anxiety and depression Arthritis Back pain Cancer Cardiology follow-up encounter Chronic cough CKD (chronic kidney disease) CPAP (continuous positive airway pressure) dependence Depression Former smoker Gastric reflux History of edema History of epidural anesthesia History of fracture of left ankle History of irregular heartbeat History of pain when walking History of stress test (~2019) Hx of carpal tunnel syndrome Hx of heart valve insufficiency Hx of melanoma of skin Hx of rheumatic fever Hx of skin malignancy Hx: recurrent pneumonia Hypertension Injury of back Leg cramps Low iron Lung nodule Normal echocardiogram (~2019) Radiculitis with lower extremity symptoms Rheumatoid arthritis Shortness of breath on exertion Sleep apnea Spinal stenosis of lumbar region at multiple levels Thyroid disease Wears dentures Wears glasses Wears hearing aid Home Medications Fish Oil 2 ea PO DAILY 12/09/13 [History Last Taken 01/29/21] cholecalciferol (vitamin D3) [Vitamin D3] 2,000 unit PO DAILY 12/09/13 [History Last Taken 01/29/21] lansoprazole [Prevacid] 15 mg PO BID PRN 12/09/13 [History Last Taken 01/30/21] vitamin B complex 1 ea PO DAILY 12/09/13 [History Last Taken 01/29/21] levothyroxine 50 mcg PO DAILY 02/24/17 [History Last Taken 01/31/21] losartan 50 mg PO DAILY 12/05/20 [History Last Taken 01/29/21] acetaminophen [Tylenol Extra Strength] 500 - 1,000 mg PO Q8H PRN 01/03/21 [History Last Taken 01/30/21] tramadol 50 mg tablet 25 - 50 mg PO DAILY 01/25/21 [History Last Taken 01/30/21] Allergy/AdvReac Type Severity Reaction Status Date / Time gabapentin Allergy Rash Verified 01/31/21 12:48 irbesartan Allergy Other Verified 01/31/21 12:48 lisinopril Allergy Other Verified 01/31/21 12:48 nifedipine [From Procardia] Allergy Other Verified 01/31/21 12:48 pravastatin Allergy Other Verified 01/31/21 12:48 tizanidine [Tizanidine] Allergy Other Verified 01/31/21 12:48 levofloxacin AdvReac Pain in Verified 01/31/21 12:48 joints Surgical History History of adenoidectomy History of cardiac catheterization (~2019) History of carpal tunnel release History of toe surgery Hx of hand surgery Hx of tonsillectomy Hx of tubal ligation Social History Smoking Status: Former smoker ROS ROS ED Constitutional Constitutional ED: Denies chills or fever(s) Eyes Eyes: Denies change in vision ENT ENT ED: Denies epistaxis or rhinorrhea Cardiovascular Cardiovascular: Reports chest pain; Denies palpitations Respiratory/Chest Respiratory/Chest: Denies cough, dyspnea or dyspnea on exertion Gastrointestinal Gastrointestinal: Denies abdominal pain, diarrhea, nausea or vomiting Genitourinary Genitourinary ED: Denies dysuria, hematuria or urinary frequency Musculoskeletal Musculoskeletal: Denies back pain or neck pain Integumentary Denies rash Neurologic Neurologic: Denies dizziness, headache(s) or weakness EXAM Physical Exam Const Vital Signs: 01/31/21 12:43 01/31/21 12:50 01/31/21 14:19 Temperature 98.1 F 98.1 F Temperature Source Temporal Temporal Pulse Rate 88 88 Respiratory Rate 24 H 24 H Respiratory Effort Short of Breath Blood Pressure 158/65 H 158/65 H Blood Pressure Mean 96 96 Pulse Ox 85 92 Oxygen Delivery Method Room Air Nasal Cannula Nasal Cannula Oxygen Flow Rate (L/min) 2 2 Positive well nourished and well developed General Appearance ED: well developed and NAD HEENT Reports normocephalic, head/scalp atraumatic and moist mucous membranes Eyes PERRL and EOMs intact bilaterally Chest Wall inspection of chest normal Resp normal respiratory effort and clear to auscultation bilaterally Auscultation: Negative for rales, rhonchi or wheezes Cardio regular rate, regular rhythm and no murmurs GI normal to inspection, nondistended, normoactive bowel sounds and non-tender Palpation: soft; Negative for guarding or rebound tenderness present Back/Spine no CVA tenderness Extremity normal to inspection General Extremety ED: Negative for edema or tenderness General Extremity: Negative for edema Neuro no sensory deficits noted Sensorium / Orientation: alert Motor Exam: strength 5/5 throughout Psych mental status grossly normal Skin no rashes or lesions noted MDM MDM MDM Narrative Medical decision making narrative: Patient presents to the ED for left-sided pleuritic chest pain. On arrival to the ED she is satting 85% on room air. She does not appear in acute distress. She is mildly tachypneic. She is afebrile. Blood pressure has remained stable. Given the fact she had back surgery in December is having pleuritic pain and initially hypoxia will obtain CT angio of the chest to rule out pulmonary embolism. EKG and basic lab work are being obtained. She is given a dose of morphine for symptomatic treatment. Patient CT scan was positive for PE in the left lower lobe. With the hypoxia she started on heparin and will be admitted to the hospital. Troponin is not elevated but BNP is mildly high. No other significant acute abnormality on work-up. Patient has remained stable throughout ED stay. Will bring into the hospital for further evaluation and management. Lab Data Labs: Laboratory Results - last 24 hr 01/31/21 01/31/21 01/31/21 12:55 12:55 12:55 WBC 10.4 RBC 4.35 Hgb 12.3 Hct 37.1 MCV 85.3 MCH 28.3 MCHC 33.2 RDW Std Deviation 45.4 H RDW Coeff of Peter 14.7 H Plt Count 258 MPV 9.5 Immature Gran % (Auto) 0.500 Neut % (Auto) 78.1 H Lymph % (Auto) 11.4 L [place] % (Auto) 7.6 Eos % (Auto) 2.1 Baso % (Auto) 0.3 Absolute Neuts (auto) 8.1 H Absolute Lymphs (auto) 1.18 Nucleated RBC % 0 Sodium 139 Potassium 3.5 Chloride 103 Carbon Dioxide 30.0 Anion Gap 6 BUN 16 Creatinine 1.10 H Estim Creat Clear Calc 32.88 Est GFR (MDRD) Af Amer 61 Est GFR (MDRD) Non-Af 50 L BUN/Creatinine Ratio 14.5 Glucose 104 Calcium 8.9 Troponin I High Sens 10 B-Natriuretic Peptide 163.2 H Radiography Diagnostic Testing: Radiology Impression Chest CTA 01/31/21 12:55 IMPRESSION: Pulmonary emboli in branches of the left lower lobe pulmonary artery. Infiltration and/or atelectasis in the posteromedial segment of the left lower lobe with minimal left pleural effusion. Electronically Signed: Gwyn Arboleda MD at 14:17 EDT , Service support , Discharge Plan Dx/Rx/DC Orders Clinical Impression: Pulmonary embolism, Hypoxia, Chest pain Disposition Disposition: Acute Care Hospital [facility]
[2021-01-31 13:22] LABS: BNP,B-Type NATRIURETIC PEPTIDE 163.2 pg/mL (0-100)
[2021-01-31 13:25] LABS: Anion Gap 6 (5-15); BUN 16 mg/dL (7-18); BUN/Creat Ratio 14.5 RATIO (10-20); Calcium,Total 8.9 mg/dL (8.5-10.1); Chloride 103 mmol/L (98-107); EST Glomerular Filtration Rate 50 mL/min (>60); Est Glom Filt Rate - Afr Amer 61 mL/min (>60); Estimated Creatinine Clearance 32.88 ml/min; Glucose 104 mg/dL (74-106); Potassium 3.5 mmol/L (3.5-5.1); Sodium Level 139 mmol/L (136-145); Troponin-I HS 10 pg/mL (3.0-54.0)
--- NOTE | 2021-01-31 14:45 | HP.PCM.HOS_ITS ---
HPI - General General Date of Admission: 01/31/21 HPI Narrative DARYA PINEDA, is a 85 F with an extensive PMH as outlined who presents with a complaint of chest pain. Pain was under her left breast, and said it worsened with deep inspiration. She recently had back surgery in December 2020 and was not discharged on any anticoagulants as it was back surgery she had. She hasnt been on any long distance travel recently, and denies any swelling in her lower extremities. She also complained of shortness of breath. Review of systems is otherwise negative. SHe doesnt have a history of PE or DVT and denies any history of covid infection. Review of systems was otherwise negative. Vitals in the ED were BP of 158/65, [place] of 88, RR of 24 and temp of 98.1F with saturation of 92% on 2L of oxygen. Her sats dropped to 85% on room air.CTA of the chest showed pulmonary emboli in branches of the left lower lobe pulmonary artery. She is being admitted to be managed for acute hypoxic respiratory insufficiency due to submassive PE. [facility] Medical History Ambulates with cane Anxiety Anxiety and depression Arthritis Back pain Cancer Cardiology follow-up encounter Chronic cough CKD (chronic kidney disease) CPAP (continuous positive airway pressure) dependence Depression Former smoker Gastric reflux History of edema History of epidural anesthesia History of fracture of left ankle History of irregular heartbeat History of pain when walking History of stress test (~2019) Hx of carpal tunnel syndrome Hx of heart valve insufficiency Hx of melanoma of skin Hx of rheumatic fever Hx of skin malignancy Hx: recurrent pneumonia Hypertension Injury of back Leg cramps Low iron Lung nodule Normal echocardiogram (~2019) Radiculitis with lower extremity symptoms Rheumatoid arthritis Shortness of breath on exertion Sleep apnea Spinal stenosis of lumbar region at multiple levels Thyroid disease Wears dentures Wears glasses Wears hearing aid Home Medications Fish Oil 2 ea PO DAILY 12/09/13 [History Last Taken 01/29/21] cholecalciferol (vitamin D3) [Vitamin D3] 2,000 unit PO DAILY 12/09/13 [History Last Taken 01/29/21] lansoprazole [Prevacid] 15 mg PO BID PRN 12/09/13 [History Last Taken 01/30/21] vitamin B complex 1 ea PO DAILY 12/09/13 [History Last Taken 01/29/21] levothyroxine 50 mcg PO DAILY 02/24/17 [History Last Taken 01/31/21] losartan 50 mg PO DAILY 12/05/20 [History Last Taken 01/29/21] acetaminophen [Tylenol Extra Strength] 500 - 1,000 mg PO Q8H PRN 01/03/21 [History Last Taken 01/30/21] tramadol 50 mg tablet 25 - 50 mg PO DAILY 01/25/21 [History Last Taken 01/30/21] Allergy/AdvReac Type Severity Reaction Status Date / Time gabapentin Allergy Rash Verified 01/31/21 12:48 irbesartan Allergy Other Verified 01/31/21 12:48 lisinopril Allergy Other Verified 01/31/21 12:48 nifedipine [From Procardia] Allergy Other Verified 01/31/21 12:48 pravastatin Allergy Other Verified 01/31/21 12:48 tizanidine [Tizanidine] Allergy Other Verified 01/31/21 12:48 levofloxacin AdvReac Pain in Verified 01/31/21 12:48 joints Surgical History History of adenoidectomy History of cardiac catheterization (~2019) History of carpal tunnel release History of toe surgery Hx of hand surgery Hx of tonsillectomy Hx of tubal ligation Social History Smoking Status: Former smoker ROS Review of Systems ROS Unobtainable: due to encephalopathy Constitutional Constitutional: Denies anorexia, chills, fatigue, fever(s), malaise or weakness Eyes Eyes: Denies change in vision ENT HEENT: Denies dysphagia or headache(s) Cardiovascular Cardiovascular: Reports chest pain and other Details: chest pain is pleuritic ; Denies dyspnea on exertion, edema, lightheadedness, orthopnea, palpitations, paroxysmal nocturnal dyspnea, rapid heart rate or syncope Respiratory/Chest Respiratory/Chest: Reports dyspnea and shortness of breath with exertion; Denies cough, excessive phlegm production, hemoptysis, productive cough or shortness of breath at rest Gastrointestinal Gastrointestinal: Reports abdominal pain, constipation, nausea and vomiting Genitourinary Genitourinary: Denies burning urination, dysuria or urinary frequency Musculoskeletal Musculoskeletal: Denies arthralgias, back pain, joint pain, joint stiffness or joint swelling Neurologic Neurologic: Denies confusion, dizziness, focal weakness, seizures or syncope Psychiatric Psychiatric: Denies anxiety or depression Vital Signs Vital Signs Vital Signs: 01/31/21 12:43 01/31/21 12:50 01/31/21 14:19 Temperature 98.1 F 98.1 F Temperature Source Temporal Temporal Pulse Rate 88 88 Respiratory Rate 24 H 24 H Respiratory Effort Short of Breath Blood Pressure 158/65 H 158/65 H Blood Pressure Mean 96 96 Pulse Ox 85 92 Oxygen Delivery Method Room Air Nasal Cannula Nasal Cannula Oxygen Flow Rate (L/min) 2 2 Weight Weight: 142 lb 13.753 oz Body Mass Index (BMI) 24.1 Physical Exam Const alert, oriented x3 and no apparent distress General Appearance: cooperative HEENT normocephalic, head/scalp atraumatic, hearing grossly normal bilaterally and moist oral mucous membranes Eyes PERRL, EOMs intact bilaterally and conjunctivae normal Neck no lymphadenopathy Resp Resp Narrative: mildly diminished breath sounds bibasally, no wheezes or crackles. On 2L of oxygen by nasal canula Cardio regular rate, regular rhythm, S1 normal heart sound, S2 normal heart sound and no murmurs GI normal to inspection, nondistended, normoactive bowel sounds, soft to palpation and non-tender Extremity normal to inspection, full ROM and no clubbing, cyanosis or edema Peripheral Pulses: Yes pulses 2+ throughout Skin no rashes or lesions noted Neuro oriented x3 Sensorium / Orientation: awake and alert Psych affect normal Results Lab / Micro Data Result Diagrams: 01/31/21 12:55 01/31/21 12:55 Labs: Laboratory Results - last 24 hr 01/31/21 12:55: WBC 10.4, RBC 4.35, Hgb 12.3, Hct 37.1, MCV 85.3, MCH 28.3, MCHC 33.2, RDW Std Deviation 45.4 H, RDW Coeff of Peter 14.7 H, Plt Count 258, MPV 9.5, Immature Gran % (Auto) 0.500, Neut % (Auto) 78.1 H, Lymph % (Auto) 11.4 L, [place] % (Auto) 7.6, Eos % (Auto) 2.1, Baso % (Auto) 0.3, Absolute Neuts (auto) 8.1 H, Absolute Lymphs (auto) 1.18, Nucleated RBC % 0 01/31/21 12:55: Sodium 139, Potassium 3.5, Chloride 103, Carbon Dioxide 30.0, Anion Gap 6, BUN 16, Creatinine 1.10 H, Estim Creat Clear Calc 32.88, Est GFR (MDRD) Af Amer 61, Est GFR (MDRD) Non-Af 50 L, BUN/Creatinine Ratio 14.5, Glucose 104, Calcium 8.9, Troponin I High Sens 10 01/31/21 12:55: B-Natriuretic Peptide 163.2 H Radiology Impression Chest CTA 01/31/21 12:55 IMPRESSION: Pulmonary emboli in branches of the left lower lobe pulmonary artery. Infiltration and/or atelectasis in the posteromedial segment of the left lower lobe with minimal left pleural effusion. Electronically Signed: Gwyn Arboleda MD at 14:17 EDT , Service support , Assessment & Plan Assessment/Plan (1) Pulmonary embolism: (2) Hypoxia: (3) Chest pain: PLAN: #Acute hypoxic respiratory insufficiency due to submassive left sided PE * admit to PCU * CTA chest showed left lower lobe PE * started on heparin drip; will switch to eliquis therapeutic dose * titrate oxygen to maintain sats >90% * breathing treatment with bronchodilators * #LEft sided submassive PE * only possible precipitating factor is her history of recent surgery in December 2019 * covid test pending * management as above * will need treatment for 3-6 months * #Hypothyroidism: on synthroid #Hypertension: on losartan DVT prophylaxis: lovenox Code status: full code * Patient counseled extensively about different types of CODE STATUS including full code, DNR CCA and DNR CCA. Patient elects to be full code, and wants to be intubated or sedated if the need arises. * Total [id number] time 17 minutes. Charges/Coding Visit Charges Inpatient E&M: 69834 Init Hosp L3 Procedures Hospitalists Procedures: 87637 Advncd Care Plan 30 Min
[2021-01-31] MEDS: Heparin Injection (Vial) 5,000 UNIT/ML VIAL 4500 UNIT IV (14:57)
[2021-01-31] MEDS: HEPARIN/D5w 25,000 UNITS 25,000 UNITS/250 ML IV.SOLN. 10 UNITS IV (14:57)
[2021-01-31 15:58] LABS: International Normalized Ratio 1.2; Prothrombin Time (Protime)PT. 14.9 SECONDS (11.7-14.9)
[2021-01-31 16:17] LABS: Partial Thromboplast Time > 250.0 Seconds (24.1-36.2)
--- NOTE | 2021-01-31 16:20 | ED.RN ---
pt's first pt, ptt was drawn prior to starting the heparin. lab called to say the first pt ptt was hemolyzied and had to be redrawn. the second pt ptt was drawn after the heparin was already started.
--- NOTE | 2021-01-31 16:21 | ED.RN ---
LAB NOTIFIED ER THAT PT'S PTT HEMOLYZED AFTER HEPARIN ALREADY STARTED. SECOND PTT RESULTED >250. DR THOMPSON FOWLER NOTIFIED. PER JANETH, STOP HEPARIN GTT FOR 2 HOURS AND OBTAIN PTT. HEPARIN GTT STOPPED AT 1622. TO BE STARTED AGAIN AT 1822.
[2021-01-31 17:20] LABS: Partial Thromboplast Time > 250.0 Seconds (24.1-36.2)
--- NOTE | 2021-01-31 17:53 | PCS.PANDOC ---
PANDEMIC DOCUMENTATION INITIATED: Date: 01/28/2021 Time: 190
[2021-01-31] MEDS: APIXABAN 5 MG TABLET 10 MG PO (18:45)
[2021-01-31 18:54] LABS: Troponin-I HS 9 pg/mL (3.0-54.0)
[2021-01-31 19:17] LABS: Troponin-I HS 10 pg/mL (3.0-54.0)
[2021-01-31] MEDS: Morphine 2 MG/ML Syringe IV ×2 (20:52→21:07)
[2021-01-31] MEDS: 0.9% Saline Lock 10 ML Syringe IV ×2 (20:56→21:10)
[2021-02-01] VITALS (11 sets, daily range): BP systolic 124–155; BP diastolic 53–67; PULSE 63–74; RESP 18; TEMP 36.4–36.8; O2SAT 89–100
[2021-02-01] MEDS: Morphine 2 MG/ML Syringe IV ×4 (04:50→15:50)
[2021-02-01] MEDS: Levothyroxine 50 MCG Tablet PO (04:50)
[2021-02-01 05:36] LABS: Absolute Lymphocyte Count 1.01 X10^3/uL (0.83-4.51); Basophil# 0.02 X10^3/uL; Basophil% 0.3 % (0-1); Eosinophil# 0.15 X10^3/uL; Eosinophils% 1.9 % (0-5); Hematocrit 32.4 % (37-47); Hemoglobin 10.6 g/dL (12.0-15.0); Lymphocyte # 1.01 X10^3/ul (0.83-4.51); Lymphocyte % 12.7 % (19-41); Mean Corp Hgb Conc 32.7 g/dL (32-36); Mean Corpuscular Hgb 28.2 pg (27.0-32.0); Mean Corpuscular Volume 86.2 fL (81-99); Mean Platelet Vol. 9.4 fl (6.2-12.0); Monocyte# 0.76 X10^3/uL; Monocyte% 9.5 % (0-10); NRBC Flagged by Analyzer 0 % (0-5); Neutrophil % 75.2 % (47-70); Platelet Count 217 K/mm3 (150-450); RBC Distribution Width CV 14.7 % (11.6-14.6); RBC Distribution Width SD 46.3 fl (35.1-43.9); Red Blood Count 3.76 M/mm3 (4.2-5.4)
[2021-02-01 06:06] LABS: Anion Gap 6 (5-15); BUN 10 mg/dL (7-18); BUN/Creat Ratio 12.7 RATIO (10-20); Calcium,Total 8.5 mg/dL (8.5-10.1); Chloride 104 mmol/L (98-107); Creatinine, Serum 0.78 mg/dL (0.55-1.02); EST Glomerular Filtration Rate 74 mL/min (>60); Est Glom Filt Rate - Afr Amer 90 mL/min (>60); Estimated Creatinine Clearance 36.16 ml/min; Glucose 103 mg/dL (74-106); Potassium 3.9 mmol/L (3.5-5.1); Sodium Level 137 mmol/L (136-145)
--- NOTE | 2021-02-01 07:35 | ECHOD_ITS ---
Reason For Study: Emboli Procedure This was a 2D Doppler, Color Flow transthoracic echocardiogram. Exam performed portable in patient room. Left Ventricle Normal left ventricle. The estimated ejection fraction is EF 55-60 %. Right Ventricle Normal right ventricle. Normal systolic function. Atria The left atrium is moderately enlarged. Normal right atrium. Mitral Valve There is mild to moderate mitral annular calcification. Trivial mitral valve insufficiency. Tricuspid Valve Normal tricuspid valve. No tricuspid valve insufficiency. Aortic Valve Moderate diffuse aortic valve calcification. Mild to moderate aortic stenosis. Peak aortic valve gradient 25.7 mmHg. Mean aortic valve gradient 13.8 mmHg. Calculated aortic valve area (continuity equation) is 1.4 cm2. Mild (1+) aortic valve insufficiency. Pulmonic Valve The pulmonic valve is not well visualized. Great Vessels Normal aortic root. Pericardium/Pleural No pericardial effusion. MMode/2D Measurements & Calculations LVIDd: 4.6 cm IVSd: 1.1 cm LVOT diam: 1.9 cm LVIDs: 3.0 cm LVPWd: 0.78 cm LVOT area: 2.7 cm2 RVDd: 3.5 cm FS: 35.5 % Ao root diam: 2.7 cm LAV(MOD-bp): 54.3 ml LVAd ap4: 21.8 cm2 LAV(MOD-bp) Indexed: 32.4 ml/m2 LVLd ap4: 6.4 cm LAV(MOD-sp2): 56.3 ml EDV(MOD-sp4): 59.9 ml LAV(MOD-sp4): 52.1 ml EDV(sp4-el): 62.8 ml LVAs ap4: 11.7 cm2 LVLs ap4: 5.3 cm ESV(MOD-sp4): 21.3 ml ESV(sp4-el): 21.7 ml EF(MOD-sp4): 64.5 % EF(sp4-el): 65.3 % LVAd ap2: 21.2 cm2 SV(MOD-sp4): 38.6 ml SV(MOD-sp2): 35.5 ml LVLd ap2: 6.4 cm EDV(MOD-sp2): 57.4 ml EDV(sp2-el): 59.7 ml LVAs ap2: 12.2 cm2 LVLs ap2: 5.6 cm ESV(MOD-sp2): 21.9 ml ESV(sp2-el): 22.4 ml EF(MOD-sp2): 61.9 % SV(sp4-el): 41.0 ml LA dimension(2D): 4.2 cm LA A4 area: 18.0 cm2 RA A4 area: 12.0 cm2 Doppler Measurements & Calculations MV E max león: 90.1 cm/sec Lat Peak E' Le[place]: 4.8 cm/sec Med Peak E' Le[place]: 5.0 cm/sec MV A max león: 120.8 cm/sec E/E' lat: 18.6 E/E' med: 17.9 MV E/A: 0.75 Ao V2 max: 253.5 cm/sec LV V1 max: 118.6 cm/sec SV(LVOT): 75.9 ml Ao max P.7 mmHg LV V1 max P.6 mmHg Ao V2 mean: 177.7 cm/sec LV V1 mean P.8 mmHg Ao mean P.8 mmHg LV V1 mean: 94.4 cm/sec Ao V2 VTI: 54.1 cm LV V1 VTI: 28.1 cm DAVON(I,D): 1.4 cm2 DAVON(V,D): 1.3 cm2 PA V2 max: 84.8 cm/sec ECHO/Echo Complete Interpretation Summary The estimated ejection fraction is EF 55-60 %. Peak aortic valve gradient 25.7 mmHg. Mean aortic valve gradient 13.8 mmHg. Calculated aortic valve area (continuity equation) is 1.4 cm2. Grade # I Diastolic Dysfunction Ordering Physician: Elisa Rhoades Referring Physician: Sandy Giraldo Performed By: Sarina Merino, JERRYCS, RVT
[2021-02-01] MEDS: 0.9% Saline Lock 10 ML Syringe IV ×3 (08:24→15:50)
--- NOTE | 2021-02-01 08:31 | NURSING ---
O2 SAT 100% ON RA. PT AMBULATED TO BR & RETRUN TO BED - O2 SAT 89%. PT PLACED BACK ON 2L NC.
[2021-02-01] MEDS: Vitamin B Comp W-C Capsule 1 CAP PO (08:36)
[2021-02-01] MEDS: APIXABAN 5 MG TABLET 10 MG PO ×2 (08:36→21:11)
[2021-02-01] MEDS: Losartan Potassium 50 MG Tablet PO (08:36)
[2021-02-01] MEDS: Cholecalciferol (VIT D3) 25 MCG TABLET (1,000 UNITS) 50 MCG PO (08:36)
[2021-02-01] MEDS: Acetaminophen 500 MG Tablet PO ×2 (10:31→18:32)
--- NOTE | 2021-02-01 11:04 | CASEMGMT ---
Readmission chart review: Pt was admitted initially 12/19-12/22/20 for Lumbar decompression surgery with Dr. Jean-Baptiste and declined any HHC or OP therapy at discharge. Pt/family were provided with information to set up once home, if pt required it at that time. Pt then returned to [facility] ED on 01/03/21 for lower back pain down right leg and was admitted to [facility] for back pain at that time with MRI showing: Fluid collection in the soft tissues posterior to the laminectomies at L4-5, postoperative seroma, possible infected collection. Pt was placed on antibx at that time and Dr. Jean-Baptiste was consulted, bone scan was ordered which showed: 1. Subtle increased radiopharmaceutical uptake at L3 may be secondary to recent surgery.2. Intense focus of increased radiopharmaceutical uptake by the distal left fibula suggests sequela of fracture. Infection is thought less likely. Pt requested to go to rehab at discharge but then walked 120ft SBA with therapy on 01/07/21 and therapy recommended [facility]. Pt/daughter chose to go home without any further therapy again at that time. Pt returned to [facility] ED on 01/31/21 for pain under left breast and pt's sat on arrival was 85% on room air. Pt had a CT chest with: Pulmonary emboli in branches of the left lower lobe pulmonary artery. Infiltration and/or atelectasis in the posteromedial segment of the left lower lobe with minimal left pleural effusion. Pt was started on heparin drip initially but is now on Eliquis for anti-coagulation. Pt is currently on 2L nc and will be monitored for home oxygen qualification, PT/OT jazmine, and RN CM will follow for Eliquis coverage/co-pay. Pt states no preference for DME company, if needed. Green sheet left on chart for home oxygen, if pt qualifies. CM to follow for any further discharge planning/needs. SStaten RN CM
--- NOTE | 2021-02-01 11:16 | PN.HOSP_ITS ---
Subjective Subjective Patient seen and examined. She feels better today and feels her shortness of breath is improving. Her left-sided chest pain is also getting better and her pleuritic pain is also improving. Review of symptoms otherwise negative. She has otherwise remained hemodynamically stable. She remains on 2 L of oxygen. Objective Data Objective Data Vital Signs: Vital Signs Temp Pulse Resp BP Pulse Ox 97.6 F L 71 18 142/63 H 98 02/01/21 08:11 02/01/21 08:11 02/01/21 08:11 02/01/21 08:11 02/01/21 10:40 Oxygen Flow Rate (L/min) 2 Oxygen Delivery Method Nasal Cannula Weight: 139 lb 8.842 oz Body Mass Index (BMI) 23.9 Intake & Output: Intake and Output for Last 24 Hours 01/30/21 01/31/21 02/01/21 23:59 23:59 23:59 Intake Total 38.5 / 38.5 Balance 38.5 / 38.5 Lab / Micro Data Result Diagrams: 02/01/21 05:16 02/01/21 05:16 Labs: Laboratory Results - last 24 hr 01/31/21 12:55: WBC 10.4, RBC 4.35, Hgb 12.3, Hct 37.1, MCV 85.3, MCH 28.3, MCHC 33.2, RDW Std Deviation 45.4 H, RDW Coeff of Peter 14.7 H, Plt Count 258, MPV 9.5, Immature Gran % (Auto) 0.500, Neut % (Auto) 78.1 H, Lymph % (Auto) 11.4 L, [place] % (Auto) 7.6, Eos % (Auto) 2.1, Baso % (Auto) 0.3, Absolute Neuts (auto) 8.1 H, Absolute Lymphs (auto) 1.18, Nucleated RBC % 0 01/31/21 12:55: Sodium 139, Potassium 3.5, Chloride 103, Carbon Dioxide 30.0, Anion Gap 6, BUN 16, Creatinine 1.10 H, Estim Creat Clear Calc 32.88, Est GFR (MDRD) Af Amer 61, Est GFR (MDRD) Non-Af 50 L, BUN/Creatinine Ratio 14.5, Glucose 104, Calcium 8.9, Troponin I High Sens 10 01/31/21 12:55: B-Natriuretic Peptide 163.2 H 01/31/21 14:57: PT Cancelled, INR Cancelled, APTT Cancelled 01/31/21 15:39: PT 14.9, INR 1.2, APTT > 250.0 H* 01/31/21 16:41: APTT > 250.0 H* 01/31/21 18:25: Troponin I High Sens 9 01/31/21 18:55: Troponin I High Sens 10 02/01/21 05:16: WBC 8.0, RBC 3.76 L, Hgb 10.6 L, Hct 32.4 L, MCV 86.2, MCH 28.2, MCHC 32.7, RDW Std Deviation 46.3 H, RDW Coeff of Peter 14.7 H, Plt Count 217, MPV 9.4, Immature Gran % (Auto) 0.400, Neut % (Auto) 75.2 H, Lymph % (Auto) 12.7 L, [place] % (Auto) 9.5, Eos % (Auto) 1.9, Baso % (Auto) 0.3, Absolute Neuts (auto) 6.0, Absolute Lymphs (auto) 1.01, Nucleated RBC % 0 02/01/21 05:16: Sodium 137, Potassium 3.9, Chloride 104, Carbon Dioxide 27.0, Anion Gap 6, BUN 10, Creatinine 0.78, Estim Creat Clear Calc 36.16, Est GFR (MDRD) Af Amer 90, Est GFR (MDRD) Non-Af 74, BUN/Creatinine Ratio 12.7, Glucose 103, Calcium 8.5 Micro: Microbiology 01/31/21 17:41 Mucosa - Nose SARS-CoV-2 Antigen (Rapid) - Final Radiography Diagnostic Testing: Radiology Impression Chest CTA 01/31/21 12:55 IMPRESSION: Pulmonary emboli in branches of the left lower lobe pulmonary artery. Infiltration and/or atelectasis in the posteromedial segment of the left lower lobe with minimal left pleural effusion. Electronically Signed: Gwyn Arboleda MD at 14:17 EDT , Service support , Physical Exam Const alert, oriented x3 and no apparent distress General Appearance: cooperative Exam Limitations: no limitations HEENT normocephalic, head/scalp atraumatic, hearing grossly normal bilaterally and moist oral mucous membranes Head and Scalp: normocephalic Eyes PERRL, EOMs intact bilaterally and conjunctivae normal Neck no lymphadenopathy Resp Resp Narrative: mildly diminished breath sounds bibasally, no wheezes or crackles. On 2L of oxygen by nasal canula Cardio regular rate, regular rhythm, S1 normal heart sound, S2 normal heart sound and no murmurs GI normal to inspection, nondistended, normoactive bowel sounds, soft to palpation and non-tender Extremity normal to inspection, full ROM and no clubbing, cyanosis or edema Skin no rashes or lesions noted Neuro oriented x3 Sensorium / Orientation: awake and alert Psych affect normal Assessment & Plan Assessment/Plan (1) Pulmonary embolism: (2) Hypoxia: (3) Chest pain: PLAN: #Acute hypoxic respiratory insufficiency due to submassive left sided PE * feels much better today * CTA chest showed left lower lobe PE * now on oral eliquis therapeutic dose * BNP was mildly elevated at 162, but high sensivity troponin x 3 were negative. * 2D echo ordered and pending * DUplex of LEs not done as it wont change the management of her PE * titrate oxygen to maintain sats >90% * breathing treatment with bronchodilators * #LEft sided submassive PE * management as above. * #Hypothyroidism: on synthroid #Hypertension: on losartan DVT prophylaxis: lovenox Code status: full code Charges/Coding Visit Charges Inpatient E&M: 66884 Subs Hosp L2
--- NOTE | 2021-02-01 13:59 | CASEMGMT ---
Palliative screening tool completed for [facility]. Patient does not meet criteria for palliative consult.
[2021-02-01] MEDS: oxyCODONE 5 MG Tablet PO (18:32)
[2021-02-02] VITALS (9 sets, daily range): BP systolic 94–131; BP diastolic 54–67; PULSE 65–80; RESP 16–18; TEMP 36.5–36.7; O2SAT 95–97
[2021-02-02] MEDS: Morphine 2 MG/ML Syringe IV (05:23)
[2021-02-02] MEDS: Levothyroxine 50 MCG Tablet PO (05:23)
[2021-02-02 06:55] LABS: Absolute Lymphocyte Count 0.99 X10^3/uL (0.83-4.51); Absolute Neutrophil Count 5.6 X10^3/uL (2.0-7.7); Basophil# 0.04 X10^3/uL; Basophil% 0.5 % (0-1); Eosinophil# 0.15 X10^3/uL; Hematocrit 35.1 % (37-47); Hemoglobin 11.2 g/dL (12.0-15.0); Lymphocyte # 0.99 X10^3/ul (0.83-4.51); Lymphocyte % 13.3 % (19-41); Mean Corp Hgb Conc 31.9 g/dL (32-36); Mean Corpuscular Volume 87.8 fL (81-99); Mean Platelet Vol. 9.8 fl (6.2-12.0); Monocyte# 0.68 X10^3/uL; Monocyte% 9.1 % (0-10); NRBC Flagged by Analyzer 0 % (0-5); Neutrophil # 5.58 X10^3/uL (2.7-7.7); Neutrophil % 74.7 % (47-70); Platelet Count 235 K/mm3 (150-450); RBC Distribution Width CV 14.5 % (11.6-14.6); RBC Distribution Width SD 46.5 fl (35.1-43.9); White Blood Count 7.5 K/mm3 (4.4-11.0)
[2021-02-02 07:27] LABS: Anion Gap 3 (5-15); BUN 11 mg/dL (7-18); BUN/Creat Ratio 14.9 RATIO (10-20); Calcium,Total 9.1 mg/dL (8.5-10.1); Chloride 103 mmol/L (98-107); Creatinine, Serum 0.74 mg/dL (0.55-1.02); EST Glomerular Filtration Rate 80 mL/min (>60); Est Glom Filt Rate - Afr Amer 97 mL/min (>60); Estimated Creatinine Clearance 36.16 ml/min; Glucose 100 mg/dL (74-106); Potassium 4.3 mmol/L (3.5-5.1); Sodium Level 136 mmol/L (136-145)
[2021-02-02] MEDS: Acetaminophen 500 MG Tablet PO (08:30)
[2021-02-02] MEDS: Vitamin B Comp W-C Capsule 1 CAP PO (08:31)
[2021-02-02] MEDS: Cholecalciferol (VIT D3) 25 MCG TABLET (1,000 UNITS) 50 MCG PO (08:31)
[2021-02-02] MEDS: APIXABAN 5 MG TABLET 10 MG PO (08:31)
[2021-02-02] MEDS: Losartan Potassium 50 MG Tablet PO (08:31)
--- NOTE | 2021-02-02 11:07 | DS.PCM_ITS ---
Providers Date of Admission: 01/31/21 Primary Care Physician: STACY Miller Reason For Visit: LEFT SIDED PE Diagnosis Discharge Diagnosis (1) Pulmonary embolism: Status: Acute Code(s): I26.99 - Other pulmonary embolism without acute cor pulmonale (2) Hypoxia: Status: Acute Code(s): R09.02 - Hypoxemia (3) Chest pain: Status: Acute Code(s): R07.9 - Chest pain, unspecified Medications at Discharge Home Medications Fish Oil 2 ea PO DAILY 12/09/13 cholecalciferol (vitamin D3) [Vitamin D3] 2,000 unit PO DAILY 12/09/13 lansoprazole [Prevacid] 15 mg PO BID PRN 12/09/13 vitamin B complex 1 ea PO DAILY 12/09/13 levothyroxine 50 mcg PO DAILY 02/24/17 losartan 50 mg PO DAILY 12/05/20 acetaminophen [Tylenol Extra Strength] 500 - 1,000 mg PO Q8H PRN 01/03/21 apixaban 5 mg PO BID #60 tab 02/02/21 apixaban 10 mg PO BID #24 tab 02/02/21 oxycodone 5 mg PO Q4H PRN PRN 7 Days #30 tab 02/02/21 Hospital Course Summary of Care Provided Minutes Spent on Discharge: 38 Hospital Course: Mrs. Kim is an 85-year-old white female who presented to the emergency department at [facility] on 01/31/2021 with comp laints of chest pain. She reported the pain was under her left breast and reported that was pleuritic in nature. She had a recent back surgery in December 2019 and had not been anticoagulated for DVT prophylaxis after discharge. On admission she denied any swelling in her legs but did report she did have some shortness of breath in conjunction with her chest pain. The emergency department her vitals were stable other than some mild hypoxia which demonstrated an oxygen sat of 85% on room air. A CTA was performed and showed pulmonary emboli in the branches of the left lower lobe. She was admitted for acute hypoxic respiratory insufficiency secondary to submassive pulmonary embolus. She initially was treated with heparin drip. Her CT of the chest done prior to admission showed intraluminal filling defects in the distal portion of the left pulmonary artery extending into multiple branches in the left lower lobe. There is some wedging in the left lower lobe which I suspect may be relat ed to pulmonary infarct. This seems even more likely given her continued pain on the left side of her chest. There is no comment of RV enlargement on the CT. An echocardiogram was done and shows no RV strain, an EF of 55 to 60%, stage I diastolic dysfunction, and aortic stenosis. The valvular area was calculated to be 1.4. Her peak aortic valve gradient was 25.7 mmHg with a mean gradient of 1 3.8 mmHg. She was able to be converted to Eliquis and will continue 10 mg twice daily for total of 6 days after discharge and then convert to 5 mg twice daily. I would recommend a 3 to 6-month treatment. Given that these were provoked after her surgery. With regards to her aortic valve I would recommend we follow this clinically and if she has any symptoms in the future repeat an echocardiogram to reevaluate the aortic valve area. She would likely not be a candidate for a open aortic valve replacement but may be a candidate for a TAVR. I recommend she follow-up with her primary care doctor in 1 to 2 weeks. We also recommended utilization of her walker at home in the short-term until she feels like her ambulation is better with regards to her right lower extremity and low back issues to avoid falls given her full anticoagulation. She voiced understanding and agreed. She was seen by physical therapy during her hospitalization and was deemed not needing any more further therapy. She was discharged with oxycodone. She had been on Ultram but states she had not had much relief with this. She was informed to hold he Ultram while she is taking the oxycodone. 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 CHIN-retitration in progress Physical Exam Const alert, oriented x3, no apparent distress and average body habitus Constitutional Narrative: Elderly white female sitting up in a chair at the bedside, complaining of left-sided intermittent pain, in no acute distress, nontoxic, currently on room air General Appearance: cooperative, well kempt and well developed Orientation / Consciousness: awake HEENT normocephalic, head/scalp atraumatic, moist oral mucous membranes and oropharynx normal; Negative for hearing grossly normal bilaterally or dentition normal HEENT Narrative: Mild VENETIE IRA, dentures and partial in place Mouth: oral and palatal mucosa normal Eyes PERRL, EOMs intact bilaterally and conjunctivae normal Neck no lymphadenopathy, supple and no JVD Resp normal respiratory effort, no retractions, no use of accessory muscles and clear to auscultation bilaterally Auscultation: Negative for crackles, rales, rhonchi or wheezes Cardio regular rate, regular rhythm, S1 normal heart sound, S2 normal heart sound, no murmurs, no rub, no gallops, no clicks and no JVD GI normal to inspection, nondistended, normoactive bowel sounds, soft to palpation, non-tender and non-distended Extremity normal to inspection and no clubbing, cyanosis or edema Skin no rashes or lesions noted, no wounds, skin turgor normal and no jaundice Neuro oriented x3, CN's II-XII intact bilaterally and moves all extremities Neuro Narrative: Generalized weakness Sensorium / Orientation: awake, alert, oriented to person, oriented to place and oriented to time Speech: speech normal Psych affect normal Medical Records Data Medical Nutrition Assessment Dietitian: Malnutrition Criteria Met Start: 02/01/21 12:23 Freq: Status: Active Protocol: Document 02/01/21 12:23 (Rec: 02/01/21 12:24 [id number]) Nutrition Malnutrition Evidence of Malnutrition Exists Yes Malnutrition (severe): Acute Illness/Injury Evidenced By Suboptimal Energy Intake ( Severe),Weight Loss (Severe) Clinical Problem Acute Disease or Injury Related Malnutrition Etiology severe acute malnutrition r/t inadequate energy intake, decreased appetite d/t back pain Signs/Symptoms as evidenced by unintentional wt loss of 14.3#/9% wt loss x 1 month; was 148.2# on 12/19/20- 8.6#/5.8% wt loss x 1.5 month ; estimated PO intake meeting <50% of nutritional needs x 1 momth Status Active Problem Recommendation Dietitian Recommendations/Changes regular- no added salt diet d/ t acute malnutrition; 1 scoop beneprotein at meals for additional protein if consumed . Weight / BMI Weight Weight: 63.3 kg Body Mass Index (BMI) 23.9 ABG / Lab / Microbiology Data Result Diagrams: 02/02/21 06:16 02/02/21 06:16 Laboratory: Laboratory Results - last 24 hr 02/02/21 06:16: WBC 7.5, RBC 4.00 L, Hgb 11.2 L, Hct 35.1 L, MCV 87.8, MCH 28.0, MCHC 31.9 L, RDW Std Deviation 46.5 H, RDW Coeff of Peter 14.5, Plt Count 235, MPV 9.8, Immature Gran % (Auto) 0.400, Neut % (Auto) 74.7 H, Lymph % (Auto) 13.3 L, [place] % (Auto) 9.1, Eos % (Auto) 2.0, Baso % (Auto) 0.5, Absolute Neuts (auto) 5.6, Absolute Lymphs (auto) 0.99, Nucleated RBC % 0 02/02/21 06:16: Sodium 136, Potassium 4.3, Chloride 103, Carbon Dioxide 30.0, Anion Gap 3 L, BUN 11, Creatinine 0.74, Estim Creat Clear Calc 36.16, Est GFR (MDRD) Af Amer 97, Est GFR (MDRD) Non-Af 80, BUN/Creatinine Ratio 14.9, Glucose 100, Calcium 9.1 Microbiology: Microbiology 01/31/21 17:41 Mucosa - Nose SARS-CoV-2 Antigen (Rapid) - Final Radiography Diagnostic Testing: Radiology Impression Echocardiogram 02/01/21 07:35 Interpretation Summary The estimated ejection fraction is EF 55-60 %. Peak aortic valve gradient 25.7 mmHg. Mean aortic valve gradient 13.8 mmHg. Calculated aortic valve area (continuity equation) is 1.4 cm2. Grade # I Diastolic Dysfunction Ordering Physician: Elisa Rhoades Referring Physician: Sandy Giraldo Performed By: Sarina Merino RDCS, RVT D/C Instructions Discharge Diet: Low fat / Low cholesterol Discharge Activity: Return to Normal Activity Additional Activity Instructions: Please use walker at all times until balance and ambulation improves given anticoagulation Meaningful Use Info Meaningful Use Diagnoses (Choose all that apply): None applicable Discharge Plan Admission Admit Date/Time: 01/31/21 15:00 Primary Reason for Your Visit: Pulmonary Embolism Attending Provider: Damaris Arvizu Primary Care Provider: Sandy Giraldo NP Instructions Patient Instructions: Pulmonary Embolism Additional Instructions / Restrictions: Take apixaban 10 mg twice daily for another 6 days then start 5 mg tablets twice daily thereafter Discharge Orders/Prescriptions Prescriptions: New apixaban 5 mg tablet 10 mg PO BID Qty: 24 RF: 0 oxycodone 5 mg Tablet 5 mg PO Q4H PRN PRN (Reason: Pain Score 4-5) 7 Days Qty: 30 RF: 0 apixaban 5 mg tablet 5 mg PO BID Qty: 60 RF: 0 Continued lansoprazole [Prevacid] 15 MG capsule 15 mg PO BID PRN (Reason: Indigestion) RF: 0 vitamin B complex 1 EACH capsule 1 ea PO DAILY RF: 0 Fish Oil 1 EACH capsule 2 ea PO DAILY RF: 0 cholecalciferol (vitamin D3) [Vitamin D3] 2,000 UNIT tablet 2,000 unit PO DAILY RF: 0 levothyroxine 50 MCG tablet 50 mcg PO DAILY RF: 0 losartan 50 mg Tablet 50 mg PO DAILY RF: 0 acetaminophen [Tylenol Extra Strength] 500 mg Tablet 500 - 1,000 mg PO Q8H PRN (Reason: Pain) RF: 0 Discontinued tramadol 50 mg tablet 25 - 50 mg PO DAILY RF: 0 Referrals / Follow Up: Sandy Giraldo NP, [employer] OPERATOR-C [Primary Care Provider] - Within 1 Week Disposition Disposition (needs filled in before D/C Order can be placed): Home, Self Care Charges/Coding Visit Charges Inpatient E&M: 96297 Disch Hosp
--- NOTE | 2021-02-04 14:15 | CASEMGMT ---
SUKI MONK Discharge Follow Up Phone Call: SHIRLEY: 12 Strata:3 Call Date: 02/04/21 Discharge Date: 02/02/21 Time of Call:1413 Duration:3 min Admitting Dx:left sided PE SUKI MONK completed follow up phone call after recent hospitalization. Pt states she is doing better. She said she is not having the severe pain in her lungs like she was. She has made a PCP appt for . Pt reports not using her walker to ambulate, but she is using her cane. She states her home is too small for the walker. She states she can also grab ahold of furniture. Pt reports stopping her oxycodone lastnight. She was able to picker packer her rx. We reviewed her eliquis dosing. Pt verbalizes understanding. She denies any further questions/concerns and thanked this SUKI MONK for the call.
== END 2021-02-02 14:04 | disposition home or self-care (01) | DRG 175 ==
LOC: ED 14:57 → PCU 15:22
PROVIDERS: Emergency Medicine; Admitting Provider Student in an Organized Health Care Education/Training Program; Emergency Provider Emergency Medicine; PCP Registered Nurse; Visit Provider Internal Medicine
DX: I26.99 Other pulmonary embolism without acute cor pulmonale (principal); E43 Unspecified severe protein-calorie malnutrition; I12.9 Hypertensive chronic kidney disease with stage 1 through stage 4 chronic kidney disease, or unspecified chronic kidney disease; N18.9 Chronic kidney disease, unspecified; R09.02 Hypoxemia; Z20.822 Contact with and (suspected) exposure to COVID-19; I35.0 Nonrheumatic aortic (valve) stenosis; M06.9 Rheumatoid arthritis, unspecified; E03.9 Hypothyroidism, unspecified; G47.33 Obstructive sleep apnea (adult) (pediatric); K21.9 Gastro-esophageal reflux disease without esophagitis; Z68.23 Body mass index [BMI] 23.0-23.9, adult; Z79.890 Hormone replacement therapy; Z79.899 Other long term (current) drug therapy; Z85.820 Personal history of malignant melanoma of skin; Z87.891 Personal history of nicotine dependence
CPT/HCPCS: 36415; 71275; 80048; 83880; 84484; 85025; 85610; 85730; 87426; 93005; 93306; 97162; 97165; 97802; 99285; Q9967; A4216

== ENCOUNTER → 2023-03-02 | Outpatient (CLI) | payer MEDICARE, SELFPAY ==
--- NOTE | 2023-02-24 | CYSPIN_PTH ---
PATIENT: DARYA PINEDA LOC: [facility]#:[id number] AGE/SX: 87/F ROOM: RE03/02/[address]: Dr. Kimberly Amezcua MD : [id number] BED: DIS: 03/02/2023 SPEC #: [id number] RECD: 02/24/23 16:00 STATUS: CATALINO HENSLEY #: [id number] KELLY: 02/24/23 00:[address]: Kimberly Amezcua DEPT: CYTOLOGY RECD BY: Elda Brothers ENTERED: 02/25/23 09:04 SP TYPE: CYSPIN FL OTHR DR: Sandy Giraldo, ELECTRONIC PUBLISHER-C Tissues: Urine Procedures: Pap Stain (control) Special Stain Group II Cytospin Fluid HEADER OPERATION: Not noted PRE-OP DIAGNOSIS: Uterine bleeding TISSUE SUBMITTED: Urine for cytology DIAGNOSIS CYTOLOGY Urine for cytology (cytospin): Negative for high-grade urothelial carcinoma (NHGUC), Aidee System Category II. See comment. AM:benito 02/25/2023 COMMENT The Aidee System for urine cytology diagnostic categorization was used in the evaluation of this case. CYTOLOGY STUDY Slides are reviewed. CYTOLOGY GROSS Received is 10 ml of iftikhar hazy fluid labeled with the patient's name and and designated per the requisition as urine. Submitted for cytology preparation. / benito 02/24/2023 TC:5 CPT: 92524
[2023-02-24 17:45] LABS: Cytology, Body Fluid / CSF SEE PATHOLOGY REPORT
--- NOTE | 2023-03-02 17:26 | US_ITS ---
INDICATION: PMB EXAMINATION: Ultrasound US Transvaginal Non-OB TECHNIQUE: Transvaginal (for optimal evaluation of the adnexa) pelvic ultrasound was performed. Grayscale, spectral waveform, and color flow Doppler evaluation of the adnexa. COMPARISON: None. FINDINGS: UTERUS: Anteverted. The uterus measures 4.2 x 3.0 x 2.2 cm. Multiple calcifications. The endometrial stripe measures 2 mm in AP diameter which is within normal limits. RIGHT OVARY: Not visualized. LEFT OVARY: Not visualized. FREE FLUID: None. US/Transvaginal Non- IMPRESSION: Probable calcified fibroid uterus. Recommend further evaluation by pelvic MRI as clinically indicated. Electronically Signed: Bereket Macias MD at 19:24 EDT ,
== END | disposition home or self-care (01) ==
PROVIDERS: PCP Registered Nurse; Referring Provider Urology; Visit Provider Urology
DX: N93.9 Abnormal uterine and vaginal bleeding, unspecified (principal)
CPT/HCPCS: 76830; 88108; 88313

== ENCOUNTER → 2023-03-06 | Outpatient (CLI) | payer MEDICARE, SELFPAY ==
--- NOTE | 2023-03-06 12:51 | CR.HP_ITS ---
CR - History & Physical General Arrival date:: 03/06/23 Arrival time:: 12:51 Date of Referral:: 02/25/23 Date of CR Evaluation:: 03/06/23 Referring Physician: Dr. Kannan Campbell Primary Diagnosis: S/P angioplasty with stent History of Present Cardiac Event Onset Date PTCA or coronary stenting:: Yes Vessel: LAD Medications Ambulatory Orders Medication Instructions Recorded cholecalciferol (vitamin D3) 50 2,000 unit PO DAILY 12/09/13 mcg (2,000 unit) tablet (Vitamin D3) lansoprazole 15 mg capsule,delayed 15 mg PO BID PRN Indigestion 12/09/13 release (Prevacid) omega-3 fatty acids-fish oil 340 2 ea PO DAILY 12/09/13 mg-1,000 mg capsule (Fish Oil) levothyroxine 50 mcg tablet 50 mcg PO DAILY 02/24/17 losartan 50 mg tablet 50 mg PO DAILY 12/05/20 acetaminophen 500 mg tablet 500 - 1,000 mg PO Q8H PRN Pain 01/03/21 (Tylenol Extra Strength) apixaban 5 mg tablet 5 mg PO BID #60 tabs 02/02/21 Allergies Allergies gabapentin Allergy (Verified 07/17/21 09:11) Rash irbesartan Allergy (Verified 07/17/21 09:11) Other lisinopril Allergy (Verified 07/17/21 09:11) Other nifedipine [From Procardia] Allergy (Verified 07/17/21 09:11) Other pravastatin Allergy (Verified 07/17/21 09:11) Other tizanidine [Tizanidine] Allergy (Verified 07/17/21 09:11) Other levofloxacin Adverse Reaction (Verified 07/17/21 09:11) Pain in joints Sleep Disorder Evaluation Hx of Sleep Apnea: Yes Do you snore loudly (louder than talking or can be heard through closed doors)?: No Do you often feel tired/ fatigued/ sleepy during daytime?: Yes Has anyone observed you stop breathing during sleep?: No History of Hypertension (for STOP score): Yes STOP Results: Positive Advanced Directives Advanced Directives Power of Key Account Coordinator: Yes Living Will: Yes Advance Directives Information Provided: No Advance Directives on File: Yes DNR Order?:: Yes Past Medical History Covid-19 Screening Physicial Symptoms Fever: No Unexplained muscle aches: No Current respiratory symptoms: No Upper respiratory infections symptoms: No Gastro-intestinal symptoms: No Coe-Jkaa-Ftzifi symptoms: No Other Clinical Concerns Has tested positive for COVID-19 in last 30 days: No Exposure Risk Had contact w/person w/symptoms or Covid-19 (+) last 14 days: No Has High Risk Exposures ID'd by Health dept/Inf Control team: No Pertinent Comorbidities 65 years or older:: Yes Lives in Assisted Living facility:: No Has a chronic lung disease or moderate to severe asthma:: No Has a serious heart condition:: Yes Immunocompromised:: No Severely obese (Body Mass Index of 40 or higher):: No Diabetic:: No Has chronic kidney disease undergoing dialysis:: Yes Has liver disease:: No Past Medical Illness Medical History Ambulates with cane Anxiety Anxiety and depression Arthritis Back pain Cancer Cardiology follow-up encounter Chronic cough CKD (chronic kidney disease) CPAP (continuous positive airway pressure) dependence Depression Former smoker Gastric reflux History of edema History of epidural anesthesia History of fracture of left ankle History of irregular heartbeat History of pain when walking History of stress test (~2019) Hx of carpal tunnel syndrome Hx of heart valve insufficiency Hx of melanoma of skin Hx of rheumatic fever Hx of skin malignancy Hx: recurrent pneumonia Hypertension Injury of back Leg cramps Low iron Lung nodule Normal echocardiogram (~2019) Pulmonary embolism Radiculitis with lower extremity symptoms Rheumatoid arthritis Shortness of breath on exertion Sleep apnea Spinal stenosis of lumbar region at multiple levels Thyroid disease Wears dentures Wears glasses Wears hearing aid Past Surgical History Surgical History History of adenoidectomy History of cardiac catheterization (~2019) History of carpal tunnel release History of toe surgery Hx of hand surgery Hx of tonsillectomy Hx of tubal ligation Social History Smoking History Smoking Status: Former smoker Years Smokin Packs Smoked per Day: 20 Hx Tobacco Use: Yes Hx Smoking Exposure: Yes Alcohol Use Alcohol Usage: No Substance Abuse Hx Substance Use: No Occupation Occupation (List type of work in comments):: Retired Hobbies, Recreation, Social Activities Hobbies: Watch TV and Other (bible study) Recreational Activities: I can hardly do any recreational activities Social Environment Status Marital Status: Current Living Arrangements Living Environment:: Alone Children How many children do you have?: 2 Do any of your children live nearby?: Yes Safety Do you feel safe in your surroundings?: Yes Assistance Do you need any assistance at home?: no Review of Systems Review of Systems Hints Review of Present Symptoms: Reports Shortness of Breath with Exertion, Fatigue, Appetite - Special Diet (watches sodium) and Sleep - Normal (trouble falling asleep) Pain Is Patient Pain Free?: No Pain Location: back, upper extremity (arthritis in arms') and lower extremity (sciatica) Pain Level: 10/22 Risk Factor Assessment Vital Signs Pulse Ox: 98 Blood Pressure: 140/66 Pulse Pulse Rate: 69 Hypertension On medication(s)?: yes Blood Pressure Sitting - Right Arm: 140/66 Stress Stress: Home/Family Obesity Height: 5 ft 4 in Weight:: 143 lb Weight in Pounds: 143.0 lbs Body Mass Index (BMI): 24.5 Nutritional Referral for Obesity: No Physical Inactivity Physical Inactivity: Reg Exercise 30 min/day (walks dog) Risk Stratification Risk Guidelines: Lowest Risk: Risk Factor for Smoking, Moderate Risk: Risk Factor for Diabetes, Risk Factor for Obesity and Risk Factor for Sedentary Lifestyle and Highest Risk: Risk Factor for Dyslipidemia, Risk Factor for Hypertension and Risk Factor for Depression For Smoking Smoking Risk Guidelines For Dyslipidemia Dyslipidemia Risk Guidelines For Diabetes Mellitus Diabetes Risk Guidelines For Obesity/Overweight Obesity/Overweight Risk Guidelines For Hypertension Hypertension Risk Guidelines For Sedentary Lifestyle Sedentary Lifestyle Risk Guidelines For Depression Depression Risk Guidelines Motivation Motivation to Participate On a scale of 1 to 10, how prepared are you to commit to attending program?: 6 What do you see as barriers to successfully being able to complete the program?: program length and the time commitment What do you see as the benefits of succesfully completing the program? In other words, what do you hope to get out of participating in the program?: make my heart stronger Are there issues you are dealing with that will interfere with completing the program?: chronic pain, arthritis, sciatica Do you have a spouse or signficant other, family or friends who will help support you to complete the program?: no
--- NOTE | 2023-03-06 13:00 | CR.ITP_ITS ---
Diagnosis General Information Admitting Diagnosis: S/P angioplasty w/ stent Personal Learning Style:: Audio/Visual Barriers to Learning: Vision Impairment Stage of change r/t lifestyle modifications:: Contemplation Gave educational material for:: Treating Heart Disease, How The Heart Works, What it means to have Heart Disease, How Coronary Artery Disease is Diagnosed, Heart Procedures, What Heart Medications Do, Risk Factors & Modifications, Living an Active Life, Nutrition, Emotions & Heart Disease, Stress Management & Relaxation and Sleep Disorders & Heart Disease Education/Goals Cardiac Rehabilitation Goals Personal Goals: Initial Assessment: Improve energy level, Get back to work, or to resume activities faster and Improve muscle strength and endurance Scale for measuring improvement of personal goals Diagnosis & Disease Process Outcomes/Goals: Pt IDs own risk factors & lifestyle modifications by Session 10, Verbalizes symptoms of angina & response by session 3., Pt independently manages and Other Additional Outcomes/Goals: Plan/Interventions: Assist Pt to ID & engage in lifestyle modification to reduce CVD risk, Instruct on individual risk factors, Review symptoms of angina & emergency actions, Review secondary diagnosis & identify educational needs. and Other see comment 30 day Reassessments:: Not Met 30 day Reassessments:: Not Met 30 day Reassessments:: Not Met 30 day Reassessments:: Not Met Final Reassessments:: Not Met Safety Referral to Physical Therapy: No Referral to [facility] Case Management: No Fall Risk Assessed:: Yes Assistive Devices:: Cane Exercise - Initial Assessment Visit Date of Eval: 03/06/23 (initial eval) Mets: Pre-: >3 METS for 30 minutes by discharge, >5 METS for 30 minutes by discharge and >7 METS for 30 minutes by discharge Physician Prescribed Exercise Modalities: Treadmill, Rower, Airdyne, NuStep, SciFit and Lateral [place] Frequency: 3x/week for 12 weeks [36 sessions] Intensity: 60-80% of age predicted maximum heart rate reserve Duration: 30 - 45 minutes METs - Progression 0.5-1.0 weekly:: 3 Target Heart Rate:: 80-101 EKG Type: NSR Outcomes & Goals Goals:: Verbalizes understanding of THR, RPE & goal METS by session 6, Documents in home exercise log/reports 30 min aerobic 5 day/wk by DC, Demonstrates accurate pulse taking by DC and Other additional outcome/goals: see below Intervention & Plan Exercise Program Goals: Instruct on personal THR & RPE, Instruct on MET level & personal MET goal, Show patient to take own pulse /validate performance until accurate, Instruct on home exercise and Other additional plan/int Physical Activity Home Exercise Physical Activity - Home Exercise: Safe Exercise, Warm-up, Self-monitoring, Cool-Down, Home Exercise > 30 min Daily and Sitting Time <3 hours/daily Outcomes & Goals Outcomes/Goals: Demonstrates correct Warm-up/exercise Cool-Down (S3) if = 2.5 METs, Verbalizes symptoms of exercise intolerance by Session 3 (S3), Demonstrate safe equipment use (S3) & follows exercise prescrition (6) and Other: See below Intervention & Plan Plan/Intervention: Instruct warm-up & cool-down if exercising at > 2 METs, Instruct on symptoms of exercise intolerance & actions to take, Instruct & monitor on saf, Assess intial functional capacity & safety risk and Other See below Nutrition - Initial Assessment Program Goals Nutrition Program Goals Patient has diagnosis of Hyperlipidemia (ICD E78)?: No Visit Date of Eval: 03/06/23 (initial eval) Cholesterol/Lipids (Other Core Measures) Determine presence & major risk factors that modify LDL goal: Cigarette smoking, Hypertension or hypertensive medication, Low HDL cholesterol <40 mg/dL*, Family history of premature CHD in Male < 55 years: female <65 yearsFa and Age men > 45 years; women >/= 55 years Outcomes/Goals: Pt IDs own risk factors & lifestyle modifications by Session 10, Verbalizes symptoms of angina & response by session 3., Pt independently manages and Other Additional Outcomes/Goals: Intervention/Plan: Advocate for lipid panel cholesterol medication if applicable, Instruct on personal lipid levels & lipid goals/NCEP guidelines, Instruct on cholesterol and Other additional plan/int Referral to dietitian:: No Diabetes (Other Core Measures) Diabetes Type: Not Applicable Weight Mgt (Other Care) Not Applicable: No Height: 5 ft 4 in Weight:: 143 lb BMI: 24.5 BMI (Report if calculated above): 24.5 Diagnosis Overweight/Obesity BMI> 30% ICD-10 E66: No Diagnosis High BMI/Morbid Obesity BMI> 35% ICD-10 Z68: No Outcomes/Goals: Pt sets, maintains & shows weight loss goal & trend during rehab Healthy Eating Habits Will attend diet classes:: Yes Outcomes/Goals:: Consume diet rich in vegs,fruits,whole grain/high fiber,fish,lean meat, Limit sat/trans fats,cholesterol & added salts & sugars and Other additional outcome/goals: Intervention/Plan:: Assess current eating habits and Other Additional plan/interventions Education Gave educational materials for:: Relate diabetes to coronary artery disease and Healthy eating Core - Initial Assessment Visit Date of Eval: 03/06/23 (initial eval) Medication Compliance Preventative Medication(s):: Aspirin (pt bringing in updated med list) and ARB (Angiotensi Rcap) H/O mental health issues: depression, anxiety, or addiction?: Yes Doesn?t believe in the benefits of treatment?: No Believes medications are unnecessary or harmful?: No Has a concern about medication side effects?: No Expresses concern over the cost of medications?: No Outcomes/Goals: Verbalizes medications,desired effect & common side effects @ DC, Pt self-reports following medication regimen, Keeps card in wallet w/medications listed by DC and Other additional outcome/goals: Interventions/plans: Instruct on medication effects & side effects, Review medication list w/patient every two weeks, Instruct importance of taking meds as ordered & assist problem solving and Other additional Tobacco Use Tobacco Use: Non-smoker How long ago did you quit using tobacco products?: Greater than or equal to 6 months ago (50 years ago) How many cigarettes do you smoke per day?: 20 Years Smokin Do you use smokeless tobacco?: No Outcomes/Goals: Smoking cessation achieved or maintained by discharge Interventions/plan: Assist pt to develop strategies to achieve/maintain quit date Hypertension Hypertension Diagnosis:: Hypertension ICD-10 I10 [place] [employer] Hypertension Guidelines Outcomes/Goals: Able to verbalize/achieve optimal blood pressure <130/80, Incorporates diet changes & exercise for blood pressure control by DC and Other additional outcomes/goals Interventions/plan: Instruct on optimal blood pressure, hypertension & medications, Instruct on effects of sodium, alcohol, stress, exercise &hypertension and Other additional plan/interventions Tobacco Cessation Referral Smoking Cessation Referral:: No Individual Education/Counseling:: No Education Schedule Given:: Yes Psychosocial - Initial Assess VIsit Date of Eval: 03/06/23 (initial eval) Not Applicable: No History of previous Mental disease:: Yes History of Emotional Disorders: Depression (pt in counseling and on medication) Self-reported stressors: Medical/Health Target Goals Target Goals Psychosocial Test Tool Used:: [employer] QOL Cardiac and PHQ-9 Questionnaire phq-9 Severity Outcomes/Goals: See list Psychosocial Outcomes/Goals:: ID's personal stressors & 2 strategies to manage stress by discharge and Other Additional outcome/goals: Intervention/Plan: See List Interventions/Plan:: Assess stressors,coping strategies & signs of derpression on admission, Instruct/assist pt to develop coping & personal stress Mgt strategies, Refer to Behavioral Health if appropriate, Refer to Physician if appropriate, Instruct patient to recognize signs & symptoms of depression, Instruct patient to recog and Other additional plan/intervention Patient Health Questionnaire PHQ-9 Screening Initial Assessment: 1. Little interest or pleasure in doing things: More than half the days 2. Feeling down, depressed, or hopeless: More than half the days 3. Trouble falling or staying asleep, or sleeping too much: Nearly every day 4. Feeling tired or having little energy: More than half the days 5. Poor appetite or overeating: More than half the days 6. Feeling bad about yourself -- or that you are a failure or have let yourself or your family down: Nearly every day 7. Trouble concentrating on things, such as reading the newspaper or watching television: Nearly every day 8. Moving or speaking so slowly that other people could have noticed. Or the opposite - being so fidgety or restless that you have been moving around a lot more than usual: More than half the days 9. Thoughts that you would be better off , or of hurting yourself in some way: Several days How difficult have these problems made it for you to do your work, take care of things at home, or get along with other people?: Very difficult (pt is in counseling and on medications) Total Score: 20 HUGO-Q SV Test Statements CAD is a disease of the arteries in the heart: False Examples of risk factors for heart disease: True Angina is chest pain or discomfort: I Don't Know The benefits of resistance training include: True Eating more meat and dairy products: False Anti-platelet medications such as aspirin are important: True The only effective way to manage stress: False An exercise warm-up slowly increases heart rate: I Don't Know Prepared, processed foods usually have high sodium: True Depression is common after a heart attack: I Don't Know The statin medications lower cholesterol: I Don't Know To control blood pressure, lower the amount of sodium: True If someone gets chest discomfort during walking: False Transfats are partially hydrogenated vegetable oils: I Don't Know Sleep apnea that is not treated increases the risk: False To control cholesterol, one should become a vegetarian: False Someone knows if he/she is exercising at the right level: False Diabetes cannot be prevented with exercise & health eating: True Stress is a large risk for heart attack: True A diet that can help lower blood pressure is rich in: True Total Score Total Correct Responses: 13 Self-Efficacy 6-Item Scale Initial Assessment: We would like to know how confident you are in doing certain activities. Please select your confidence level for: Fatigue Select Number: 3 Physical Discomfort or Pain Select Number: 4 Emotional Distress Select Number: 8 Other Symptoms or Health Problems Select Number: 7 Different Tasks and Activities Select Number: 8 Medication Select Number: 9 Total Score:: 6 Nutrition Survey Nutrition Survey Instructions Scoring Instructions Nutrition Survey Initial: Have you lost >10 lbs over the past 2 months without trying?: No Are you following a special diet at home for diabetes, low fat, or low salt?: No Are you interested in meeting with a dietitian for help understanding your diet?: No Do you eat less than 3 meals a day?: No Do you eat fatty meats (leger, sausage, ribs, etc), fried foods, desserts, large amounts of salad dressings, margarine, butter, or cheese most days?: No Do you have food allergies? [Enter types in comment field]: No Do you eat in restaurants more than 3 times a week?: No Do you season food with salt, seasoning salt, or garlic salt?: Yes Do you used canned, boxed, frozen meals, or soups, seasoning packets?: Yes Total Score:: 2 Exercise - Final/Discharge Physician Prescribed Exercise Modalities: Treadmill, Rower, Airdyne, NuStep, SciFit and Lateral Hancock Frequency: 3x/week for 12 weeks [36 sessions] Intensity: 60-80% of age predicted maximum heart rate reserve METs - Progression 0.5-1.0 weekly:: 3 Target Heart Rate:: 80-101 Nutrition - 30-Day Assessment Weight Mgt (Other Care) Height: 5 ft 4 in Weight:: 143 lb BMI: 24.5 BMI (Report if calculated above): 24.5 Nutrition - 60-Day Assessment Weight Mgt (Other Care) Height: 5 ft 4 in Weight:: 143 lb BMI: 24.5 BMI (Report if calculated above): 24.5 Core - 30-Day Assessment Tobacco Use Years Smokin Psychosocial - 30-Day Assess Target Goals Target Goals Psychosocial - 60-Day Assess Target Goals Target Goals Psychosocial - 90-Day Assess Target Goals Target Goals Psychosocial - Final Assessmen Target Goals Target Goals Nutrition - 90-Day Assessment Weight Mgt (Other Care) Height: 5 ft 4 in Weight:: 143 lb BMI: 24.5 BMI (Report if calculated above): 24.5 Nutrition - Final Assessment Program Goals Patient has diagnosis of Hyperlipidemia (ICD E78)?: No Weight Mgt (Other Care) Height: 5 ft 4 in Weight:: 143 lb BMI: 24.5 BMI (Report if calculated above): 24.5
[2023-03-06 13:28] VITALS: BMI 24.5
[2023-03-06 13:58] VITALS: BP 140/66; PULSE 69; O2SAT 98; BMI 24.5
[2023-03-06 14:25] VITALS: BMI 24.5
== END | disposition home or self-care (01) ==
LOC: CR 12:24
PROVIDERS: PCP Registered Nurse; Referring Provider Internal Medicine Interventional Cardiology; Visit Provider Internal Medicine Interventional Cardiology
DX: Z95.5 Presence of coronary angioplasty implant and graft (principal)

== ENCOUNTER → 2023-03-19 | Outpatient (CLI) | payer MEDICARE, SELFPAY ==
[2023-03-06 14:25] VITALS: BMI 24.5
--- NOTE | 2023-03-19 15:31 | CT_ITS ---
INDICATION: GROSS HEMATURIA EXAMINATION: CT Abdomen And Pelvis WO/W Contrast Injection TECHNIQUE: Helically acquired images were obtained of the abdomen and pelvis after IV contrast. A radiation dose optimization technique was used for this scan. IV Contrast dosage and agent: IV 100mL Isovue-300 Oral contrast: None. COMPARISON: None. FINDINGS: Visualized lung bases: Unremarkable Liver: Unremarkable Gallbladder: Unremarkable Spleen: Unremarkable Pancreas: Unremarkable Adrenal Glands: Unremarkable Kidneys: Mild left pelviectasis. Ureters: No stricture, stone or mass. Vasculature: Severe aortoiliac atherosclerotic disease. GI Tract: Large amount retained stool in the colon. Lymphadenopathy: None Peritoneum: No ascites. Bladder: Unremarkable Reproductive organs: Unremarkable Bones/Soft tissues: There are diffuse degenerative changes of the spine. Moderate age indeterminate compression deformity of L1. 2 mm retrolisthesis L1 on L2. 6 mm retrolisthesis L2 on L3. CT/CT Abd/Pelvis W/WO Contrast IMPRESSION: Mild left pelviectasis. No findings to explain patient''s gross hematuria. No stricture, stone or mass in the ureters. Moderate age indeterminate compression deformity of L1 with grade 1 retrolisthesis L1 on L2 and L2 on L3. Large amount retained stool in the colon. Electronically Signed: Lenard Monroe MD at 0:16 EDT ,
[2023-03-19 16:09] LABS: CREATININE FINGERSTICK < 0.9 mg/dL (0.55-1.02); EGFR FINGERSTICK > 60.0000 mL/min (>60)
== END | disposition home or self-care (01) ==
LOC: CT 15:22
PROVIDERS: PCP Registered Nurse; Referring Provider Urology; Visit Provider Urology
DX: R31.0 Gross hematuria (principal)
CPT/HCPCS: 74178; Q9967

== ENCOUNTER 2023-03-23 09:30 | Outpatient (RCR) | payer MEDICARE, SELFPAY ==
[2023-03-06 14:25] VITALS: BMI 24.5
--- NOTE | 2023-04-03 09:33 | PCM.CR.ITP ---
Exercise - Initial Assessment Visit Session #:: 4 Comments:: pt has stopped CR due to pain and copay Nutrition - Initial Assessment Weight Mgt (Other Care) Height: 5 ft 4 in Weight:: 140 lb BMI: 24.0 Psychosocial - Initial Assess Target Goals Target Goals Patient Health Questionnaire PHQ-9 Screening 30-Day Re-eval Assessment: 1. Little interest or pleasure in doing things: More than half the days 2. Feeling down, depressed, or hopeless: More than half the days 3. Trouble falling or staying asleep, or sleeping too much: Nearly every day 4. Feeling tired or having little energy: More than half the days 5. Poor appetite or overeating: More than half the days 6. Feeling bad about yourself -- or that you are a failure or have let yourself or your family down: Nearly every day 7. Trouble concentrating on things, such as reading the newspaper or watching television: Nearly every day 8. Moving or speaking so slowly that other people could have noticed. Or the opposite - being so fidgety or restless that you have been moving around a lot more than usual: More than half the days How difficult have these problems made it for you to do your work, take care of things at home, or get along with other people?: Very difficult Total Score: 19 Self-Efficacy 6-Item Scale 30-Day Re-eval Assessment: We would like to know how confident you are in doing certain activities. Please select your confidence level for: Fatigue Select Number: 3 Physical Discomfort or Pain Select Number: 4 Emotional Distress Select Number: 8 Other Symptoms or Health Problems Select Number: 7 Different Tasks and Activities Select Number: 8 Medication Select Number: 9 Total Score:: 6 Nutrition Survey Nutrition Survey Instructions Scoring Instructions Exercise - 30-day Assessment Visit Date of Eval: 04/03/23 Session #:: 4 Comments:: pt has stopped CR due to pain and copay Physician Prescribed Exercise Modalities: Treadmill, Rower, Airdyne, NuStep, SciFit and Lateral [place] Frequency: 3x/week for 12 weeks [36 sessions] Intensity: 60-80% of age predicted maximum heart rate reserve Duration: 30 - 45 minutes Current METSs:: 3.5 Target Heart Rate:: 80-101 Current RPE:: 13 Maximum Excercise HR:: 104 Resting Blood Pressure: 118/78 Maximum Exercise Blood Pressure: 140/62 EKG Type: SR to ST with rare to occas pac's and pvc Outcomes & Goals Goals:: Verbalizes understanding of THR, RPE & goal METS by session 6, Documents in home exercise log/reports 30 min aerobic 5 day/wk by DC, Demonstrates accurate pulse taking by DC and Other additional outcome/goals: see below Intervention & Plan Exercise Program Goals: Instruct on personal THR & RPE, Instruct on MET level & personal MET goal, Show patient to take own pulse /validate performance until accurate, Instruct on home exercise and Other additional plan/int 30-day Reassessments 30 day Reassessments:: Not Met Physical Activity Home Exercise Physical Activity - Home Exercise: Safe Exercise, Warm-up, Self-monitoring, Cool-Down, Home Exercise > 30 min Daily and Sitting Time <3 hours/daily Outcomes & Goals Outcomes/Goals: Demonstrates correct Warm-up/exercise Cool-Down (S3) if = 2.5 METs, Verbalizes symptoms of exercise intolerance by Session 3 (S3), Demonstrate safe equipment use (S3) & follows exercise prescrition (6) and Other: See below Intervention & Plan Plan/Intervention: Instruct warm-up & cool-down if exercising at > 2 METs, Instruct on symptoms of exercise intolerance & actions to take, Instruct & monitor on saf, Assess intial functional capacity & safety risk and Other See below 30-day Reassessments 30 day Reassessments:: Not Met Nutrition - 30-Day Assessment Program Goals Nutrition Program Goals Patient has diagnosis of Hyperlipidemia (ICD E78)?: No Visit Date of Eval: 04/03/23 Session #:: 4 Cholesterol/Lipids (Other Core Measures) Determine presence & major risk factors that modify LDL goal: Cigarette smoking, Hypertension or hypertensive medication, Low HDL cholesterol <40 mg/dL*, Family history of premature CHD in Male < 55 years: female <65 yearsFa and Age men > 45 years; women >/= 55 years Outcomes/Goals: Pt IDs own risk factors & lifestyle modifications by Session 10, Verbalizes symptoms of angina & response by session 3., Pt independently manages and Other Additional Outcomes/Goals: Intervention/Plan: Advocate for lipid panel cholesterol medication if applicable, Instruct on personal lipid levels & lipid goals/NCEP guidelines, Instruct on cholesterol and Other additional plan/int Referral to dietitian:: No 30-day Reassessments:: Not Met Weight Mgt (Other Care) Height: 5 ft 4 in Weight:: 140 lb BMI: 24.0 Diagnosis Overweight/Obesity BMI> 30% ICD-10 E66: No Diagnosis High BMI/Morbid Obesity BMI> 35% ICD-10 Z68: No Outcomes/Goals: Pt sets, maintains & shows weight loss goal & trend during rehab and Other additional outcomes/goals Intervention/Plan: Instruct on ideal BMI & set weight loss goal w/patient, Assist pt to ID & incorporate diet changes for weight loss by S9, Refer to Structured Weight Loss program as appropriate, Encourage goal of using 250-300dcal per session for weight loss and Other additional plan/interventions 30 day Reassessments:: Not Met Healthy Eating Habits Will attend diet classes:: No 30-day Reassessments:: Not Met Education Gave educational materials for:: Signs & symptoms of hypoglycemia, Signs & symptoms of hyperglycemia, Relate diabetes to coronary artery disease and Healthy eating Nutrition - 60-Day Assessment Weight Mgt (Other Care) Height: 5 ft 4 in Weight:: 140 lb BMI: 24.0 Core - 30-Day Assessment Visit Date of Eval: 04/03/23 Session #:: 4 Medication Compliance Preventative Medication(s):: Aspirin and ARB (Angiotensi Rcap) H/O mental health issues: depression, anxiety, or addiction?: Yes Doesn?t believe in the benefits of treatment?: No Believes medications are unnecessary or harmful?: No Has a concern about medication side effects?: No Expresses concern over the cost of medications?: No Outcomes/Goals: Verbalizes medications,desired effect & common side effects @ DC, Pt self-reports following medication regimen, Keeps card in wallet w/medications listed by DC and Other additional outcome/goals: Interventions/plans: Instruct on medication effects & side effects, Review medication list w/patient every two weeks, Instruct importance of taking meds as ordered & assist problem solving and Other additional 30-day Reassessments:: Not Met Tobacco Use Tobacco Use: Non-smoker Hypertension Hypertension Diagnosis:: Hypertension ICD-10 I10 Resting Blood Pressure:: 118/78 Citizen [place] Heart Association Hypertension Guidelines Peak Exercise Blood Pressure:: 140/62 Outcomes/Goals: Able to verbalize/achieve optimal blood pressure <130/80, Incorporates diet changes & exercise for blood pressure control by DC and Other additional outcomes/goals Interventions/plan: Instruct on optimal blood pressure, hypertension & medications, Instruct on effects of sodium, alcohol, stress, exercise &hypertension and Other additional plan/interventions 30 day Reassessments:: Not Met Tobacco Cessation Referral Smoking Cessation Referral:: No Individual Education/Counseling:: No Education Schedule Given:: Yes Psychosocial - 30-Day Assess VIsit Date of Eval: 04/03/23 Session #:: 4 History of previous Mental disease:: Yes History of Emotional Disorders: Depression (pt is in counseling and on meds) Self-reported stressors Other/Comments:: Medical/Health Target Goals Target Goals Psychosocial - 60-Day Assess Target Goals Target Goals Psychosocial - 90-Day Assess Target Goals Target Goals Psychosocial - Final Assessmen Target Goals Target Goals Nutrition - 90-Day Assessment Weight Mgt (Other Care) Height: 5 ft 4 in Weight:: 140 lb BMI: 24.0 Nutrition - Final Assessment Weight Mgt (Other Care) Height: 5 ft 4 in Weight:: 140 lb BMI: 24.0
[2023-04-03 09:42] VITALS: BP 118/78; BMI 24.0
== END 2023-04-14 23:59 ==
LOC: CR 09:30
PROVIDERS: PCP Registered Nurse; Referring Provider Internal Medicine Interventional Cardiology; Visit Provider Internal Medicine Interventional Cardiology
DX: I25.10 Atherosclerotic heart disease of native coronary artery without angina pectoris (principal); I25.83 Coronary atherosclerosis due to lipid rich plaque; Z95.820 Peripheral vascular angioplasty status with implants and grafts
CPT/HCPCS: 93798

== ENCOUNTER → 2023-04-20 | Outpatient (CLI) | payer MEDICARE, SELFPAY ==
[2023-04-03 09:42] VITALS: BMI 24.0
[2023-04-24 16:55] LABS: HPV Reflexed? NOT INDICATED
== END | disposition home or self-care (01) ==
PROVIDERS: PCP Registered Nurse; Visit Provider Obstetrics & Gynecology
DX: Z01.419 Encounter for gynecological examination (general) (routine) without abnormal findings (principal); N95.0 Postmenopausal bleeding
CPT/HCPCS: 88175; G0145

== ENCOUNTER 2023-06-16 16:59 | Emergency (ER) | payer MEDICARE, SELFPAY ==
[2023-06-16 17:00] VITALS: BP 130/92; PULSE 71; RESP 16; TEMP 36.2; O2SAT 98; BMI 23.8
--- NOTE | 2023-06-16 17:45 | EX.ED.DYSGE1 ---
HPI History of Present Illness Chief Complaint: Syncope Informant: patient Narrative Narrative: Presents to ED with syncopal episode at noon. She is awake had prodromal lightheaded symptoms for which she has had in the past. States she went out onto the ground with no injuries. There is no prodromal chest pains or shortness of breath. States this has happened previously. No recurrent symptoms she drove herself here. He denies cough. Yesterday had a vomiting episode however none today. Able to eat today. No abdominal pain. No urine frequency or dysuria. No bloody stools. Prior similar symptoms: Yes PFSH PFS Medical History Ambulates with cane Anxiety Anxiety and depression Arthritis Back pain Cancer Cardiology follow-up encounter Chronic cough CKD (chronic kidney disease) CPAP (continuous positive airway pressure) dependence Depression Former smoker Gastric reflux History of edema History of epidural anesthesia History of fracture of left ankle History of irregular heartbeat History of pain when walking History of stress test (~2019) Hx of carpal tunnel syndrome Hx of heart valve insufficiency Hx of melanoma of skin Hx of rheumatic fever Hx of skin malignancy Hx: recurrent pneumonia Hypertension Injury of back Leg cramps Low iron Lung nodule Normal echocardiogram (~2019) Pulmonary embolism Radiculitis with lower extremity symptoms Rheumatoid arthritis Shortness of breath on exertion Sleep apnea Spinal stenosis of lumbar region at multiple levels Thyroid disease Wears dentures Wears glasses Wears hearing aid Home Medications cholecalciferol (vitamin D3) 50 mcg (2,000 unit) tablet (Vitamin D3) 2,000 unit PO DAILY 12/09/13 [History Last Taken 01/29/21] lansoprazole 15 mg capsule,delayed release (Prevacid) 15 mg PO BID PRN Indigestion 12/09/13 [History Last Taken 01/30/21] omega-3 fatty acids-fish oil 340 mg-1,000 mg capsule (Fish Oil) 2 ea PO DAILY 12/09/13 [History Last Taken 01/29/21] levothyroxine 50 mcg tablet 50 mcg PO DAILY 02/24/17 [History Last Taken 01/31/21] losartan 50 mg tablet 50 mg PO DAILY 12/05/20 [History Last Taken 01/29/21] acetaminophen 500 mg tablet (Tylenol Extra Strength) 500 - 1,000 mg PO Q8H PRN Pain 01/03/21 [History Last Taken 01/30/21] apixaban 5 mg tablet 5 mg PO BID #60 tabs 02/02/21 [Rx Last Taken Unknown] Allergy/AdvReac Type Severity Reaction Status Date / Time gabapentin Allergy Rash Verified 06/16/23 17:02 irbesartan Allergy Other Verified 06/16/23 17:02 lisinopril Allergy Other Verified 06/16/23 17:02 nifedipine [From Procardia] Allergy Other Verified 06/16/23 17:02 pravastatin Allergy Other Verified 06/16/23 17:02 tizanidine [Tizanidine] Allergy Other Verified 06/16/23 17:02 levofloxacin AdvReac Pain in Verified 06/16/23 17:02 joints Surgical History History of adenoidectomy History of cardiac catheterization (~2019) History of carpal tunnel release History of toe surgery Hx of hand surgery Hx of tonsillectomy Hx of tubal ligation Social History Smoking Status: Former smoker ROS ROS ED Constitutional Constitutional ED: Denies chills, fever(s) or sweats Eyes Eyes: Denies change in vision ENT ENT ED: Denies dysphagia or sore throat Cardiovascular Cardiovascular: Reports other Details: Syncope ; Denies chest pain, leg edema, palpitations or racing heartbeat Respiratory/Chest Respiratory/Chest: Denies cough, dyspnea or dyspnea on exertion Gastrointestinal Gastrointestinal: Denies abdominal pain, diarrhea, nausea or vomiting Genitourinary Genitourinary ED: Denies dysuria, hematuria or urinary frequency Musculoskeletal Musculoskeletal: Denies back pain, extremity pain or neck pain Integumentary Denies rash or wounds Neurologic Neurologic: Denies headache(s), paresthesias or weakness EXAM Physical Exam Const Vital Signs: 06/16/23 17:00 06/16/23 18:10 06/16/23 19:00 Temperature 97.2 F L Temperature Source Temporal Pulse Rate 71 65 Respiratory Rate 16 17 Respiratory Effort Normal Non-Labored Respiratory Pattern Normal Blood Pressure 130/92 H 151/62 H Blood Pressure Mean 104 91 Pulse Ox 98 99 Oxygen Delivery Method Room Air Room Air 06/16/23 20:20 Temperature Temperature Source Pulse Rate 63 Respiratory Rate 17 Respiratory Effort Respiratory Pattern Blood Pressure Blood Pressure Mean Pulse Ox 99 Oxygen Delivery Method Positive well nourished and well developed General Appearance ED: well developed and NAD HEENT Reports moist mucous membranes normocephalic and atraumatic Eyes PERRL, EOMs intact bilaterally and conjunctivae normal General Eye ED: Yes normal appearance of both eyes Neck no lymphadenopathy and supple General: Negative for tenderness Chest Wall Chest: Negative for tenderness Resp normal respiratory effort and normal air movement Effort and Inspection: symmetric chest movement; Negative for respiratory distress Cardio regular rate, regular rhythm and no murmurs Peripheral Pulses: pulses 2+ throughout GI normal to inspection, nondistended, normoactive bowel sounds and non-tender Palpation: Negative for guarding or rebound tenderness present Back/Spine no CVA tenderness and no thoracic nor lumbar tenderness Extremity normal to inspection General Extremety ED: Negative for edema or tenderness General Extremity: Negative for edema Neuro oriented x3, CN's II-XII intact bilaterally and no sensory deficits noted Neuro Narrative: No focal neurological deficits. Sensorium / Orientation: awake and alert Skin no rashes or lesions noted and no wounds MDM MDM MDM Narrative Medical decision making narrative: Interventions / MDM: Differential diagnosis: Syncope, electrolyte abnormalities Diagnosis considered but do not suspect: N/A My EKG interpretation: Sinus rate of 68, no ST or T wave changes QTc 444. Imaging independently reviewed and interpreted by myself: N/A External documents reviewed: N/A Test considered but not ordered:N/A ED course: Patient no focal deficits. EKG ordered basic labs ordered with IV fluids due to vomiting yesterday. She is tolerant oral intake today. Labs creatinine 1.2 up from 0.7. Was given a liter of fluids. EKG with no acute findings. She drove herself here. She has been ambulating. Son is present. She continue oral fluids hydration at home. Outpatient follow-up recheck labs. Return precautions. All questions were answered. Re-evaluation: stable Disposition discussed with patient/family/significant other: Patient and family Case discussed with consulting clinician: N/A This note was generated with [employer] dictation software. It may contain incorrect words, spelling, and punctuation that were not noted in checking the note before signing. Lab Data Labs: Laboratory Results - last 24 hr 06/16/23 18:05 WBC 6.9 RBC 4.46 Hgb 12.7 Hct 38.8 MCV 87.0 MCH 28.5 MCHC 32.7 RDW Std Deviation 41.9 RDW Coeff of Peter 13.2 Plt Count 247 MPV 9.5 Immature Gran % (Auto) 0.300 Neut % (Auto) 76.4 H Lymph % (Auto) 15.0 L Day % (Auto) 6.6 Eos % (Auto) 1.0 Baso % (Auto) 0.7 Absolute Neuts (auto) 5.3 Absolute Lymphs (auto) 1.04 Nucleated RBC % 0 Sodium 136 Potassium 4.1 Chloride 102 Carbon Dioxide 31.0 Anion Gap 3 L BUN 32 H Creatinine 1.27 H Estim Creat Clear Calc 26.95 Est GFR (MDRD) Af Amer 51 L Est GFR (MDRD) Non-Af 42 L BUN/Creatinine Ratio 25.2 H Glucose 150 H Calcium 9.5 Discharge Plan Triage Chief Complaint: Syncope ED Provider: Andrade Back Dx/Rx/DC Orders Clinical Impression: Acute renal insufficiency, Syncope Instructions: Causes of Syncope, ED Renal Insufficiency Prescriptions: No Action lansoprazole [Prevacid] 15 MG capsule 15 mg PO BID PRN (Reason: Indigestion) Fish Oil 1 EACH capsule 2 ea PO DAILY cholecalciferol (vitamin D3) [Vitamin D3] 2,000 UNIT tablet 2,000 unit PO DAILY levothyroxine 50 MCG tablet 50 mcg PO DAILY losartan 50 mg Tablet 50 mg PO DAILY acetaminophen [Tylenol Extra Strength] 500 mg Tablet 500 - 1,000 mg PO Q8H PRN (Reason: Pain) apixaban 5 mg tablet 5 mg PO BID Qty: 60 0RF Rx Instructions: Start on 02/08/2021 Primary Care Provider: Sandy Giraldo NP Referrals: Sandy Giraldo NP, [employer] [Primary Care Provider] - 1 Week Activity Restrictions/Additional Instructions: EKG normal. Labs creatinine 1.2 up from 0.7. status post 1 L of IV fluids. Continue oral fluids for hydration. Follow-up with your doctor to recheck labs.. Return for any recurrent or worsening symptoms. Disposition Disposition: Home, Self Care Discharge Date/Time: 06/16/23 20:20
[2023-06-16] MEDS: 0.9% Normal Saline (1000mL) 1,000 ML 1000 ML IV (18:14)
[2023-06-16 18:17] LABS: Absolute Lymphocyte Count 1.04 X10^3/uL (0.83-4.51); Absolute Neutrophil Count 5.3 X10^3/uL (2.0-7.7); Basophil# 0.05 X10^3/uL; Basophil% 0.7 % (0-1); Eosinophil# 0.07 X10^3/uL; Hematocrit 38.8 % (37-47); Hemoglobin 12.7 g/dL (12.0-15.0); Lymphocyte # 1.04 X10^3/ul (0.83-4.51); Mean Corp Hgb Conc 32.7 g/dL (32-36); Mean Corpuscular Hgb 28.5 pg (27.0-32.0); Mean Platelet Vol. 9.5 fl (6.2-12.0); Monocyte# 0.46 X10^3/uL; Monocyte% 6.6 % (0-10); NRBC Flagged by Analyzer 0 % (0-5); Neutrophil % 76.4 % (47-70); Platelet Count 247 K/mm3 (150-450); RBC Distribution Width CV 13.2 % (11.6-14.6); RBC Distribution Width SD 41.9 fl (35.1-43.9); Red Blood Count 4.46 M/mm3 (4.2-5.4); White Blood Count 6.9 K/mm3 (4.4-11.0)
[2023-06-16 18:31] LABS: Anion Gap 3 (5-15); BUN 32 mg/dL (7-18); BUN/Creat Ratio 25.2 RATIO (10-20); Calcium,Total 9.5 mg/dL (8.5-10.1); Chloride 102 mmol/L (98-107); Creatinine, Serum 1.27 mg/dL (0.55-1.02); EST Glomerular Filtration Rate 42 mL/min (>60); Est Glom Filt Rate - Afr Amer 51 mL/min (>60); Estimated Creatinine Clearance 26.95 ml/min; Glucose 150 mg/dL (74-106); Potassium 4.1 mmol/L (3.5-5.1); Sodium Level 136 mmol/L (136-145)
[2023-06-16 19:00] VITALS: BP 151/62; PULSE 65; RESP 17; O2SAT 99
[2023-06-16 20:20] VITALS: PULSE 63; RESP 17; O2SAT 99
== END 2023-06-16 20:20 | disposition home or self-care (01) ==
PROVIDERS: Emergency Provider Emergency Medicine; PCP Registered Nurse; Visit Provider Emergency Medicine
DX: R55 Syncope and collapse (principal); M06.9 Rheumatoid arthritis, unspecified; R11.10 Vomiting, unspecified; I12.9 Hypertensive chronic kidney disease with stage 1 through stage 4 chronic kidney disease, or unspecified chronic kidney disease; N18.9 Chronic kidney disease, unspecified; E07.9 Disorder of thyroid, unspecified; G47.30 Sleep apnea, unspecified; Z79.01 Long term (current) use of anticoagulants; Z79.890 Hormone replacement therapy; Z79.899 Other long term (current) drug therapy; Z87.891 Personal history of nicotine dependence
CPT/HCPCS: 80048; 85025; 93005; 96360; 96361; 99284; J7030; A4216

== ENCOUNTER → 2023-10-20 | Outpatient (CLI) | payer MEDICARE, SELFPAY ==
--- NOTE | 2023-10-20 12:13 | US_ITS ---
STUDY: ULTRASOUND TRANSVAGINAL CLINICAL: Female, 88 years old. PMB TECHNIQUE: Transvaginal COMPARISON: None. FINDINGS: Normal uterine size measuring 5.2 x 4.4 x 2.1 cm in maximal craniocaudal dimension. There are multiple echogenic foci within the myometrium which may represent calcified degenerated fibroids.. Normal endometrial thickness measuring 6 mm. There is fluid in the endometrial cavity. Normal uterine cervix. The ovaries are not visualized. There is no free fluid in the pelvis. Polycystic ovary disease: No. US/Transvaginal Non- IMPRESSION: 1. Endometrial fluid gastrostomy may be useful to exclude mass. 2. Suspect myometrial calcifications possibly from degenerated fibroids but overall normal sized uterus. Electronically Signed: Ibrahima Cardozo MD at 23:27 EDT ,
== END | disposition home or self-care (01) ==
LOC: OPUS 12:13
PROVIDERS: PCP Registered Nurse; Referring Provider Obstetrics & Gynecology; Visit Provider Obstetrics & Gynecology
DX: N95.0 Postmenopausal bleeding (principal)
CPT/HCPCS: 76830

== ENCOUNTER → 2023-10-28 | Outpatient (CLI) | payer MEDICARE, SELFPAY ==
--- NOTE | 2023-10-27 09:00 | EMB_PTH ---
PATIENT: DARYA PINEDA LOC: [facility] U#:[id number] AGE/SX: 88/F ROOM: RE10/28/[address]: Dr. Kaitlin Gonzalez MD : [id number] BED: DIS: 10/28/2023 SPEC #: [id number] RECD: 10/27/23 13:01 STATUS: CATALINO SHELLIE #: [id number] KELLY: 10/27/23 09:[address]: Kaitlin Gonzalez DEPT: SURGICAL PATHOLOGY RECD BY: Elda Brothers ENTERED: 10/28/23 09:28 SP TYPE: ENDOM BX/C LATOYA DR: STACY Miller Tissues: Endometrium, NOS Procedures: Surgery Specimen Level IV HEADER OPERATION: Endometrial biopsy PRE-OP DIAGNOSIS: Abnormal uterine bleeding TISSUE SUBMITTED: Endometrial lining MICROSCOPIC DIAGNOSIS Endometrium, biopsy: Scant strips of benign superficial glandular mucosa. AM/mr 10/28/2023 MICROSCOPIC DESCRIPTION Slides are reviewed. GROSS DESCRIPTION Received in fixative is one container labeled with the patient's name and designated Endometrial biopsy. The specimen consists of mucoid material aggregating 1.0 x 1.0 x <0.1cm. The specimen is submitted for cellblock preparation. AM/mr 10/28/23 TC:5 CPT:28640
== END | disposition home or self-care (01) ==
LOC: LABSPEC 08:10
PROVIDERS: PCP Registered Nurse; Visit Provider Obstetrics & Gynecology
DX: N93.9 Abnormal uterine and vaginal bleeding, unspecified (principal)
CPT/HCPCS: 88305

== ENCOUNTER → 2025-04-07 | Outpatient (CLI) | payer MEDICARE, SELFPAY ==
[2025-04-07 14:39] VITALS: BP 142/60; PULSE 61; O2SAT 99; BMI 23.0
[2025-04-07 15:10] VITALS: BP 142/60; BMI 23.0
== END | disposition home or self-care (01) ==
PROVIDERS: PCP Registered Nurse; Referring Provider Internal Medicine Cardiovascular Disease; Visit Provider Internal Medicine Cardiovascular Disease
DX: Z95.2 Presence of prosthetic heart valve (principal)

== ENCOUNTER 2025-04-14 13:00 | Outpatient (RCR) | payer MEDICARE, SELFPAY ==
[2025-04-07 15:10] VITALS: BMI 23.0
== END 2025-04-14 23:59 ==
LOC: CR 13:00
PROVIDERS: PCP Registered Nurse; Referring Provider Internal Medicine Cardiovascular Disease; Visit Provider Internal Medicine Cardiovascular Disease
DX: Z95.2 Presence of prosthetic heart valve (principal)
CPT/HCPCS: 93798

== ENCOUNTER 2025-05-10 13:00 | Outpatient (RCR) | payer MEDICARE, SELFPAY ==
[2025-04-07 15:10] VITALS: BMI 23.0
--- NOTE | 2025-05-05 08:26 | CR.ITP_ITS ---
Exercise - Initial Assessment Visit Session #:: 10 Physician Prescribed Exercise Modalities: Treadmill, SciFit Stepper and SciFit Pro-II Ergometer Nutrition - Initial Assessment Weight Mgt (Other Care) Height: 5 ft 4 in Weight:: 138 lb BMI: 23.6 Psychosocial - Initial Assess Referral to Behavioral Health PS - Interventions: Yes: Attend Stress Management Classes and No: Referral to Behavioral Health if PHQ-9 score >9:, No: Referral to [facility] and No: Referral to Physician if PHQ-9 if score is 5-9: Patient Health Questionnaire PHQ-9 Screening 30-Day Re-eval Assessment: 1. Little interest or pleasure in doing things: Not at all 2. Feeling down, depressed, or hopeless: Not at all 3. Trouble falling or staying asleep, or sleeping too much: Not at all 4. Feeling tired or having little energy: Not at all 5. Poor appetite or overeating: Not at all 6. Feeling bad about yourself -- or that you are a failure or have let yourself or your family down: Not at all 7. Trouble concentrating on things, such as reading the newspaper or watching television: Not at all 8. Moving or speaking so slowly that other people could have noticed. Or the opposite - being so fidgety or restless that you have been moving around a lot more than usual: Not at all 9. Thoughts that you would be better off , or of hurting yourself in some way: Not at all How difficult have these problems made it for you to do your work, take care of things at home, or get along with other people?: Not difficult at all Total Score: 0 Exercise - 30-day Assessment Visit Date of Eval: 05/05/25 Session #:: 10 Physician Prescribed Exercise Modalities: Treadmill, SciFit Stepper and SciFit Pro-II Ergometer Frequency: 3x/week for 12 weeks [36 sessions] Intensity: 60-80% of age predicted maximum heart rate reserve Duration: 30 - 45 minutes METs - Progression 0.5-1.0 weekly:: 0.5 Current METSs:: 3 Target Heart Rate:: 79-99 Target RPE 12-16:: 12-16 Current RPE:: 13 Resting Blood Pressure: 138/60 Maximum Exercise Blood Pressure: 148/64 EKG Type: NSR Current Physical Activity or Exercising minutes: 30 MINS Outcomes & Goals Goals:: Verbalizes understanding of THR, RPE & goal METS by session 6, Documents in home exercise log/reports 30 min aerobic 5 day/wk by DC and Demonstrates accurate pulse taking by DC Intervention & Plan Exercise Program Goals: Instruct on personal THR & RPE, Instruct on MET level & personal MET goal, Show patient to take own pulse /validate performance until accurate and Instruct on home exercise 30-day Reassessments 30 day Reassessments:: Progressing Reassessment Notes & Comments:: Pt maintaining target heart rate during exercise. Physical Activity Home Exercise Physical Activity - Home Exercise: Safe Exercise, Warm-up, Self-monitoring, Cool-Down, Home Exercise > 30 min Daily and Sitting Time <3 hours/daily Outcomes & Goals Outcomes/Goals: Demonstrates correct Warm-up/exercise Cool-Down (S3) if = 2.5 METs, Verbalizes symptoms of exercise intolerance by Session 3 (S3) and Demonstrate safe equipment use (S3) & follows exercise prescrition (6) Intervention & Plan Plan/Intervention: Instruct warm-up & cool-down if exercising at > 2 METs, Instruct on symptoms of exercise intolerance & actions to take, Instruct & monitor on saf and Assess intial functional capacity & safety risk 30-day Reassessments 30 day Reassessments:: Progressing Reassessment Notes & Comments:: pt educated on importance of warm up and cooldown with exercise. pt demonstrates understanding. Exercise - 60-day Assessment Physician Prescribed Exercise Modalities: Treadmill, SciFit Stepper and SciFit Pro-II Ergometer Exercise - 90-day Assessment Physician Prescribed Exercise Modalities: Treadmill, SciFit Stepper and SciFit Pro-II Ergometer Exercise - Final/Discharge Physician Prescribed Exercise Modalities: Treadmill, SciFit Stepper and SciFit Pro-II Ergometer Nutrition - 30-Day Assessment Program Goals Nutrition Program Goals Patient has diagnosis of Hyperlipidemia (ICD E78)?: No Visit Date of Eval: 05/05/25 Session #:: 10 Cholesterol/Lipids (Other Core Measures) Determine presence & major risk factors that modify LDL goal: Hypertension or hypertensive medication, Low HDL cholesterol <40 mg/dL*, Family history of premature CHD in Male < 55 years: female <65 yearsFa and Age men > 45 years; women >/= 55 years Outcomes/Goals: Pt IDs own risk factors & lifestyle modifications by Session 10, Verbalizes symptoms of angina & response by session 3. and Pt independently manages Intervention/Plan: Advocate for lipid panel cholesterol medication if applicable, Instruct on personal lipid levels & lipid goals/NCEP guidelines and Instruct on cholesterol Referral to dietitian:: No 30-day Reassessments:: Progressing Diabetes (Other Core Measures) Diabetes Type: Not Applicable Weight Mgt (Other Care) Height: 5 ft 4 in Weight:: 138 lb BMI: 23.6 Diagnosis Overweight/Obesity BMI> 30% ICD-10 E66: No Outcomes/Goals: Pt sets, maintains & shows weight loss goal & trend during rehab and Other additional outcomes/goals Intervention/Plan: Instruct on ideal BMI & set weight loss goal w/patient, Assist pt to ID & incorporate diet changes for weight loss by S9, Refer to [facility] program as appropriate, Encourage goal of using 250-300dcal per session for weight loss and Other additional plan/interventions 30 day Reassessments:: Progressing Reassessment Notes & Comments:: pt will continue to weigh in weekly to track her weight. pt attended nutrition classes with clearing distribution clerk this week. Healthy Eating Habits Will attend diet classes:: Yes Outcomes/Goals:: Consume diet rich in vegs,fruits,whole grain/high fiber,fish,lean meat, Limit sat/trans fats,cholesterol & added salts & sugars and Other additional outcome/goals: Intervention/Plan:: Assess current eating habits and Other Additional plan/interventions 30-day Reassessments:: Progressing Reassessment Notes & Comments:: attending education classes. Education Gave educational materials for:: Signs & symptoms of hypoglycemia, Signs & symptoms of hyperglycemia, Relate diabetes to coronary artery disease and Healthy eating Nutrition - 60-Day Assessment Weight Mgt (Other Care) Height: 5 ft 4 in Weight:: 138 lb BMI: 23.6 Core - 30-Day Assessment Visit Date of Eval: 05/05/25 Session #:: 10 Medication Compliance Preventative Medication(s):: Aspirin, Clopidogrel/P2Y12 inhibit and ARB (Angiotensi Rcap) H/O mental health issues: depression, anxiety, or addiction?: Yes Doesn’t believe in the benefits of treatment?: No Believes medications are unnecessary or harmful?: No Has a concern about medication side effects?: No Expresses concern over the cost of medications?: No Outcomes/Goals: Verbalizes medications,desired effect & common side effects @ DC, Pt self-reports following medication regimen, Keeps card in wallet w/medications listed by DC and Other additional outcome/goals: Interventions/plans: Instruct on medication effects & side effects, Review medication list w/patient every two weeks and Instruct importance of taking meds as ordered & assist problem solving 30-day Reassessments:: Progressing Reassessment Notes & Comments:: Pt taking medications as prescribed. BP's fluctuate during rehab sessions. will report BP's to patients physician if remain elevated. Tobacco Use Tobacco Use: Non-smoker 30-day Reassessments:: Met Hypertension Hypertension Diagnosis:: Hypertension ICD-10 I10 Resting Blood Pressure:: 138/60 [place] [employer] Hypertension Guidelines Peak Exercise Blood Pressure:: 148/64 Outcomes/Goals: Able to verbalize/achieve optimal blood pressure <130/80, Incorporates diet changes & exercise for blood pressure control by DC and Other additional outcomes/goals Interventions/plan: Instruct on optimal blood pressure, hypertension & medications, Instruct on effects of sodium, alcohol, stress, exercise &hypertension and Other additional plan/interventions 30 day Reassessments:: Progressing Reassessment Notes & Comments:: pt blood pressure responds well to exercise. Core - Final Assessment Hypertension [employer] Hypertension Guidelines Reassessment Notes & Comments:: pt blood pressure responds well to exercise. Core - 90 Day Assessment Hypertension [employer] Hypertension Guidelines Reassessment Notes & Comments:: pt blood pressure responds well to exercise. Psychosocial - 30-Day Assess VIsit Date of Eval: 05/05/25 Session #:: 10 History of Emotional Disorders: Depression Psychosocial Test Tool Used:: PHQ-9 Questionnaire phq-9 Severity See PHQ-9 Score: 0 Total Score:: 0 Referral to Behavioral Health PS - Interventions: Yes: Attend Stress Management Classes and No: Referral to Behavioral Health if PHQ-9 score >9:, No: Referral to [facility] and No: Referral to Physician if PHQ-9 if score is 5-9: Outcomes/Goals: See list Psychosocial Outcomes/Goals:: ID's personal stressors & 2 strategies to manage stress by discharge Intervention/Plan: See List Interventions/Plan:: Assess stressors,coping strategies & signs of derpression on admission, Instruct/assist pt to develop coping & personal stress Mgt strategies, Refer to Behavioral Health if appropriate, Refer to Physician if appropriate, Instruct patient to recognize signs & symptoms of depression and Instruct patient to recog 30-day Reassessments: 30 day Reassessments:: Progressing Reassessment Notes & Comments:: Pt does have history of depression. does not voice any psychosocial concerns at this time. Psychosocial - 60-Day Assess Referral to Behavioral Health PS - Interventions: Yes: Attend Stress Management Classes and No: Referral to Behavioral Health if PHQ-9 score >9:, No: Referral to [facility] and No: Referral to Physician if PHQ-9 if score is 5-9: Outcomes/Goals: See list Psychosocial Outcomes/Goals:: ID's personal stressors & 2 strategies to manage stress by discharge Psychosocial - 90-Day Assess Referral to Behavioral Health PS - Interventions: Yes: Attend Stress Management Classes and No: Referral to Behavioral Health if PHQ-9 score >9:, No: Referral to [facility] and No: Referral to Physician if PHQ-9 if score is 5-9: Psychosocial - Final Assessmen Referral to Behavioral Health PS - Interventions: Yes: Attend Stress Management Classes and No: Referral to Behavioral Health if PHQ-9 score >9:, No: Referral to [facility] and No: Referral to Physician if PHQ-9 if score is 5-9: Nutrition - 90-Day Assessment Weight Mgt (Other Care) Height: 5 ft 4 in Weight:: 138 lb BMI: 23.6 Nutrition - Final Assessment Weight Mgt (Other Care) Height: 5 ft 4 in Weight:: 138 lb BMI: 23.6
[2025-05-05 08:42] VITALS: BP 138/60; BMI 23.6
== END 2025-05-14 23:59 ==
LOC: CR 13:00
PROVIDERS: PCP Registered Nurse; Referring Provider Internal Medicine Cardiovascular Disease; Visit Provider Internal Medicine Cardiovascular Disease
DX: Z95.2 Presence of prosthetic heart valve (principal)
CPT/HCPCS: 93798

== ENCOUNTER 2025-06-02 13:00 | Outpatient (RCR) | payer MEDICARE, SELFPAY ==
[2025-05-05 08:42] VITALS: BMI 23.6
--- NOTE | 2025-06-01 09:53 | PCM.CR.ITP ---
Exercise - Initial Assessment Physician Prescribed Exercise Modalities: Treadmill and SciFit Pro-II Ergometer Nutrition - Initial Assessment Weight Mgt (Other Care) Height: 5 ft 4 in Weight:: 138 lb BMI: 23.6 Psychosocial - Initial Assess Referral to Behavioral Health PS - Interventions: Yes: Attend Stress Management Classes and No: Referral to Behavioral Health if PHQ-9 score >9:, No: Referral to [facility] and No: Referral to Physician if PHQ-9 if score is 5-9: Exercise - 30-day Assessment Physician Prescribed Exercise Modalities: Treadmill and SciFit Pro-II Ergometer Exercise - 60-day Assessment Visit Date of Eval: 06/01/25 Session #:: 19 Physician Prescribed Exercise Modalities: Treadmill and SciFit Pro-II Ergometer Frequency: 2x/week for 18 weeks [36 sessions] and 3x/week for 12 weeks [36 sessions] Intensity: 60-80% of age predicted maximum heart rate reserve Duration: 30 - 45 minutes Current METSs:: 2.2 Target Heart Rate:: 79-99 Current RPE:: 11-12 Maximum Excercise HR:: 151 Resting Blood Pressure: 130/60 Maximum Exercise Blood Pressure: 140/62 EKG Type: SB-NSR with occas PAC, rare PVC, peaked t wave at times Outcomes & Goals Goals:: Verbalizes understanding of THR, RPE & goal METS by session 6, Documents in home exercise log/reports 30 min aerobic 5 day/wk by DC, Demonstrates accurate pulse taking by DC and Other additional outcome/goals: see below Intervention & Plan Exercise Program Goals: Instruct on personal THR & RPE, Instruct on MET level & personal MET goal, Show patient to take own pulse /validate performance until accurate, Instruct on home exercise and Other additional plan/int 30-day Reassessments 30 day Reassessments:: Progressing Reassessment Notes & Comments:: Pt is progressing in her exercise intensity. Will continue to encourage and increase intensity as tolerated Physical Activity Home Exercise Physical Activity - Home Exercise: Safe Exercise, Warm-up, Self-monitoring, Cool-Down, Home Exercise > 30 min Daily and Sitting Time <3 hours/daily Outcomes & Goals Outcomes/Goals: Demonstrates correct Warm-up/exercise Cool-Down (S3) if = 2.5 METs, Verbalizes symptoms of exercise intolerance by Session 3 (S3), Demonstrate safe equipment use (S3) & follows exercise prescrition (6) and Other: See below Intervention & Plan Plan/Intervention: Instruct warm-up & cool-down if exercising at > 2 METs, Instruct on symptoms of exercise intolerance & actions to take, Instruct & monitor on saf, Assess intial functional capacity & safety risk and Other See below 30-day Reassessments 30 day Reassessments:: Progressing Reassessment Notes & Comments:: Pt continues to progress towards her exercise goals with increased intensity, while demonstrating proper warm up and cool down. Exercise - 90-day Assessment Physician Prescribed Exercise Modalities: Treadmill and SciFit Pro-II Ergometer Exercise - Final/Discharge Physician Prescribed Exercise Modalities: Treadmill and SciFit Pro-II Ergometer Nutrition - 30-Day Assessment Weight Mgt (Other Care) Height: 5 ft 4 in Weight:: 138 lb BMI: 23.6 Nutrition - 60-Day Assessment Program Goals Nutrition Program Goals Patient has diagnosis of Hyperlipidemia (ICD E78)?: No Visit Date of Eval: 06/01/25 Session #:: 19 (nutrition score of 2.) Cholesterol/Lipids (Other Core Measures) Determine presence & major risk factors that modify LDL goal: Cigarette smoking, Hypertension or hypertensive medication, Low HDL cholesterol <40 mg/dL*, Family history of premature CHD in Male < 55 years: female <65 yearsFa and Age men > 45 years; women >/= 55 years Outcomes/Goals: Pt IDs own risk factors & lifestyle modifications by Session 10, Verbalizes symptoms of angina & response by session 3., Pt independently manages and Other Additional Outcomes/Goals: Intervention/Plan: Advocate for lipid panel cholesterol medication if applicable, Instruct on personal lipid levels & lipid goals/NCEP guidelines, Instruct on cholesterol and Other additional plan/int 30-day Reassessments:: Progressing Diabetes (Other Core Measures) Diabetes Type: Not Applicable Weight Mgt (Other Care) Height: 5 ft 4 in Weight:: 138 lb BMI: 23.6 Diagnosis Overweight/Obesity BMI> 30% ICD-10 E66: No Diagnosis High BMI/Morbid Obesity BMI> 35% ICD-10 Z68: No Outcomes/Goals: Pt sets, maintains & shows weight loss goal & trend during rehab and Other additional outcomes/goals Intervention/Plan: Instruct on ideal BMI & set weight loss goal w/patient, Assist pt to ID & incorporate diet changes for weight loss by S9, Refer to Structured Weight Loss program as appropriate, Encourage goal of using 250-300dcal per session for weight loss and Other additional plan/interventions 30 day Reassessments:: Progressing Reassessment Notes & Comments:: Pt is at a healthy weight. Pt has been given the tools to maintain a healthy diet. Healthy Eating Habits Will attend diet classes:: Yes Outcomes/Goals:: Consume diet rich in vegs,fruits,whole grain/high fiber,fish,lean meat, Limit sat/trans fats,cholesterol & added salts & sugars and Other additional outcome/goals: Intervention/Plan:: Assess current eating habits and Other Additional plan/interventions 30-day Reassessments:: Progressing Reassessment Notes & Comments:: Pt has attended nutrition classes lead by our hospital beauty culture teacher. Will continue to encourage a heart healthy diet. Education Gave educational materials for:: Signs & symptoms of hypoglycemia, Signs & symptoms of hyperglycemia, Relate diabetes to coronary artery disease and Healthy eating Core - 60-Day Assessment Visit Date of Eval: 06/01/25 Session #:: 19 Medication Compliance Preventative Medication(s):: Aspirin, Clopidogrel/P2Y12 inhibit and ARB (Angiotensi Rcap) H/O mental health issues: depression, anxiety, or addiction?: Yes Doesn?t believe in the benefits of treatment?: No Believes medications are unnecessary or harmful?: No Has a concern about medication side effects?: No Expresses concern over the cost of medications?: No Outcomes/Goals: Verbalizes medications,desired effect & common side effects @ DC, Pt self-reports following medication regimen, Keeps card in wallet w/medications listed by DC and Other additional outcome/goals: Interventions/plans: Instruct on medication effects & side effects, Review medication list w/patient every two weeks, Instruct importance of taking meds as ordered & assist problem solving and Other additional 30-day Reassessments:: Progressing Reassessment Notes & Comments:: Pt reports taking meds as prescribed. Pt to attend cardiac meds class. Tobacco Use Tobacco Use: Non-smoker Hypertension Hypertension Diagnosis:: Hypertension ICD-10 I10 Resting Blood Pressure:: 130/60 [place] [employer] Hypertension Guidelines Peak Exercise Blood Pressure:: 140/62 Outcomes/Goals: Able to verbalize/achieve optimal blood pressure <130/80, Incorporates diet changes & exercise for blood pressure control by DC and Other additional outcomes/goals Interventions/plan: Instruct on optimal blood pressure, hypertension & medications, Instruct on effects of sodium, alcohol, stress, exercise &hypertension and Other additional plan/interventions 30 day Reassessments:: Progressing Reassessment Notes & Comments:: Pt's BP are within AHA normal limits on most days. Will continue to monitor and report to pt's physician as necessary. Tobacco Cessation Referral Education Schedule Given:: Yes Psychosocial - 30-Day Assess Referral to Behavioral Health PS - Interventions: Yes: Attend Stress Management Classes and No: Referral to Behavioral Health if PHQ-9 score >9:, No: Referral to [facility] and No: Referral to Physician if PHQ-9 if score is 5-9: Outcomes/Goals: See list Psychosocial Outcomes/Goals:: ID's personal stressors & 2 strategies to manage stress by discharge and Other Additional outcome/goals: Psychosocial - 60-Day Assess VIsit Date of Eval: 06/01/25 Session #:: 19 History of previous Mental disease:: Yes History of Emotional Disorders: Depression Psychosocial Test Tool Used:: [employer] QOL Cardiac and PHQ-9 Questionnaire phq-9 Severity See PHQ-9 Score: 0 Total Score:: 0 Referral to Behavioral Health PS - Interventions: Yes: Attend Stress Management Classes and No: Referral to Behavioral Health if PHQ-9 score >9:, No: Referral to [facility] and No: Referral to Physician if PHQ-9 if score is 5-9: Outcomes/Goals: See list Psychosocial Outcomes/Goals:: ID's personal stressors & 2 strategies to manage stress by discharge and Other Additional outcome/goals: Intervention/Plan: See List Interventions/Plan:: Assess stressors,coping strategies & signs of derpression on admission, Instruct/assist pt to develop coping & personal stress Mgt strategies, Refer to Behavioral Health if appropriate, Refer to Physician if appropriate, Instruct patient to recognize signs & symptoms of depression, Instruct patient to recog and Other additional plan/intervention 30-day Reassessments: 30 day Reassessments:: Progressing Reassessment Notes & Comments:: Pt to attend stress management class. Pt denies any psychosocial issues at this time. Will reassess every 30 days. Psychosocial - 90-Day Assess Referral to Behavioral Health PS - Interventions: Yes: Attend Stress Management Classes and No: Referral to Behavioral Health if PHQ-9 score >9:, No: Referral to [facility] and No: Referral to Physician if PHQ-9 if score is 5-9: Psychosocial - Final Assessmen Referral to Behavioral Health PS - Interventions: Yes: Attend Stress Management Classes and No: Referral to Behavioral Health if PHQ-9 score >9:, No: Referral to [facility] and No: Referral to Physician if PHQ-9 if score is 5-9: Nutrition - 90-Day Assessment Weight Mgt (Other Care) Height: 5 ft 4 in Weight:: 138 lb BMI: 23.6 Nutrition - Final Assessment Weight Mgt (Other Care) Height: 5 ft 4 in Weight:: 138 lb BMI: 23.6
[2025-06-01 10:20] VITALS: BP 130/60; BMI 23.6
== END 2025-06-14 23:59 ==
LOC: CR 13:00
PROVIDERS: PCP Registered Nurse; Referring Provider Internal Medicine Cardiovascular Disease; Visit Provider Internal Medicine Cardiovascular Disease
DX: Z95.2 Presence of prosthetic heart valve (principal)
CPT/HCPCS: 93798